=== PATIENT | female | born 1995 | race Caucasian/White ===

== ENCOUNTER → 2017-07-30 11:36 | Outpatient (CLI) | payer BC, SELFPAY ==
[2017-07-30 14:17] LABS: Estradiol 34.2 pg/mL; Follicle Stimulating Hormone 4.9 mIU/mL; Free T3 2.8 pg/mL (2.18-3.98); Glucose 84 mg/dL (74-106); T4 Free Direct 0.96 ng/dL (0.76-1.46); Thyroid Stim Hormone (TSH) 0.85 uIU/mL (0.358-3.74)
[2017-07-31 07:12] LABS: DHEA Sulfate 480.5 ug/dL (110.0-433.2)
[2017-07-31 09:14] LABS: Insulin 7.7 mU/L (2.6-37.6); Vitamin D,25 Hydroxy 18.2 ng/mL (19.95-100.01)
== END ==
PROVIDERS: Visit Provider Obstetrics & Gynecology
DX: N92.0 Excessive and frequent menstruation with regular cycle (principal)
CPT/HCPCS: 36415; 82306; 82627; 82670; 82947; 83001; 83498; 83525; 84146; 84403; 84439; 84443; 84481; 82626

== ENCOUNTER → 2017-09-05 07:35 | Outpatient (CLI) | payer BC, SELFPAY ==
[2017-09-05 09:01] LABS: Estradiol 32.6 pg/mL
== END ==
PROVIDERS: Family Provider Family Medicine; PCP Family Medicine; Visit Provider Obstetrics & Gynecology
DX: N94.4 Primary dysmenorrhea (principal); N92.0 Excessive and frequent menstruation with regular cycle; N92.6 Irregular menstruation, unspecified
CPT/HCPCS: 36415; 82306; 82533; 82627; 82670; 84270; 84403; 82626

== ENCOUNTER → 2017-10-04 08:03 | Outpatient (CLI) | payer BC, SELFPAY ==
[2017-10-08 12:08] LABS: DHEA Sulfate 508.5 ug/dL (110.0-433.2); Testosterone, % Free 2.67 % (0.50-2.80); Testosterone, Free 1.17 ng/dL (0.10-0.85)
[2017-10-08 16:24] LABS: Testosterone, Total 44 ng/dL (.)
== END ==
PROVIDERS: Visit Provider Obstetrics & Gynecology
DX: N92.0 Excessive and frequent menstruation with regular cycle (principal)
CPT/HCPCS: 36415; 82533; 82627; 84270; 84402; 84403; 82626

== ENCOUNTER → 2017-10-06 08:00 | Outpatient (CLI) | payer BC, SELFPAY ==
[2017-10-11 14:08] LABS: Testosterone, % Free 2.23 % (0.50-2.80); Testosterone, Free 0.36 ng/dL (0.10-0.85)
[2017-10-11 14:22] LABS: Sex Hormone-binding Globulin 42.5 nmol/L (24.6-122.0); Testosterone, Total 16 ng/dL (.)
== END ==
PROVIDERS: Family Provider Family Medicine; PCP Family Medicine; Visit Provider Obstetrics & Gynecology
DX: N92.0 Excessive and frequent menstruation with regular cycle (principal); E28.1 Androgen excess
CPT/HCPCS: 36415; 82533; 82627; 84270; 84402; 84403; 82626

== ENCOUNTER → 2017-11-06 12:19 | Outpatient (CLI) | payer BC, SELFPAY ==
--- NOTE | 2017-11-06 12:22 | US_ITS ---
STUDY: ULTRASOUND OF THE FEMALE PELVIS - COMPLETE REASON FOR EXAM: Female, 21 years old. Dysmenorrhea. LMP: November 03, 2017 TECHNIQUE: Transabdominal and Transvaginal TECHNICAL QUALITY: Adequate. COMPARISON: None. FINDINGS: The uterus is retroverted and is in a midline position. The uterus measures 7.1 cm x 5.5 cm x 3.1 cm. Normal uterine cervix. The endometrium measures 5.0 mm in thickness, and is hyperechoic. There is no demonstrated endometrial mass. There is no demonstrated myometrial mass. I.U.D. - The patient does not have an I.U.D. The right ovary is visualized. The right ovary measures 3.2 cm x 3.7 cm x 2.8 cm. There is no right ovarian cyst or ovarian mass. There is no visualized right adnexal mass or complex lesion. There is normal arterial and normal venous vascularity. The left ovary is visualized. The left ovary measures 4.0 cm x 3.0 cm x 1.6 cm. There is no left ovarian cyst or ovarian mass. There is no visualized left adnexal mass or complex lesion. There is normal arterial and normal venous vascularity. There is minimal fluid in the cul-de-sac. The pre void volume of the bladder was 423.5 ml. Polycystic ovary disease: No. US/Pelvic (Non ) IMPRESSION: Minimal amount of free fluid in the pelvis. Electronically Signed: Mohan Silveira MD at 13:42 EDT Tel [phone], Service support ,
--- NOTE | 2017-11-06 12:52 | US_ITS ---
STUDY: ULTRASOUND OF THE FEMALE PELVIS - COMPLETE REASON FOR EXAM: Female, 21 years old. Dysmenorrhea. LMP: November 03, 2017 TECHNIQUE: Transabdominal and Transvaginal TECHNICAL QUALITY: Adequate. COMPARISON: None. FINDINGS: The uterus is retroverted and is in a midline position. The uterus measures 7.1 cm x 5.5 cm x 3.1 cm. Normal uterine cervix. The endometrium measures 5.0 mm in thickness, and is hyperechoic. There is no demonstrated endometrial mass. There is no demonstrated myometrial mass. I.U.D. - The patient does not have an I.U.D. The right ovary is visualized. The right ovary measures 3.2 cm x 3.7 cm x 2.8 cm. There is no right ovarian cyst or ovarian mass. There is no visualized right adnexal mass or complex lesion. There is normal arterial and normal venous vascularity. The left ovary is visualized. The left ovary measures 4.0 cm x 3.0 cm x 1.6 cm. There is no left ovarian cyst or ovarian mass. There is no visualized left adnexal mass or complex lesion. There is normal arterial and normal venous vascularity. There is minimal fluid in the cul-de-sac. The pre void volume of the bladder was 423.5 ml. Polycystic ovary disease: No. US/Transvaginal Non- IMPRESSION: Minimal amount of free fluid in the pelvis. Electronically Signed: Mohan Silveira MD at 13:42 EDT Tel [phone], Service support ,
== END ==
PROVIDERS: Family Provider Family Medicine; PCP Family Medicine; Visit Provider Obstetrics & Gynecology
DX: N94.6 Dysmenorrhea, unspecified (principal)
CPT/HCPCS: 76830; 76856; 93976

== ENCOUNTER 2018-05-07 13:16 | Day surgery (SDC) | payer BC, SELFPAY ==
[2018-05-01 14:37] LABS: Hematocrit 42.9 % (37-47); Mean Corp Hgb Conc 32.6 g/gl (32-36); Mean Corpuscular Hgb 28.6 pg (27.0-32.0); Mean Corpuscular Volume 87.7 fL (81-99); Mean Platelet Vol. 9.1 fl (6.2-12.0); Platelet Count 285 K/mm3 (150-450); RBC Distribution Width CV 12.9 % (11.6-14.6); RBC Distribution Width SD 40.6 fl (35.1-43.9); Red Blood Count 4.89 M/mm3 (4.2-5.4); White Blood Count 10.8 K/mm3 (4.4-11.0)
[2018-05-01 14:38] LABS: Scan Indicated on CBC? Y/N NO
[2018-05-01 14:41] LABS: Prothrombin Time (Protime)PT. 13.3 SECONDS (11.7-14.9)
[2018-05-01 14:42] LABS: Partial Thromboplast Time 27.1 Seconds (24.1-36.2)
--- NOTE | 2018-05-07 | MISC_PTH ---
PATIENT: EUGENE CADET [place] [facility] [place] U[place][id number] AGE/SX: 22/F ROOM: RE05/07/[address]: Dr. Suzanne Livingston MD : 1995 BED: DIS: 05/07/2018 SPEC #: [id number] RECD: 05/09/18 09:05 STATUS: MO ADIEL #: [id number] CHRISTY: 05/07/18 00:[address]: Suzanne Benítez DEPT: SURGICAL PATHOLOGY RECD BY: Ap Dalton ENTERED: 05/09/18 13:02 SP TYPE: [facility] DR: Dr. Hailey Gimenez MD Tissues: A - Peritoneum, NOS B - Sacral region Procedures: Surgery Specimen Level IV HEADER OPERATION: Diagnostic laparoscopy, surgical treatment of endometriosis PRE-OP DIAGNOSIS: Dysmenorrhea TISSUE SUBMITTED: A - Right posterior cul-de-sac, B - Left uterosacral MICROSCOPIC DIAGNOSIS A. Right posterior cul-de-sac, biopsy: Fragments of fibroadipose and fibroconnective tissue with focal changes consistent with endometriosis. B. Left uterosacral, biopsy: Mesothelial-lined fibroadipose and fibroconnective tissue with chronic inflammation and focal changes suggestive of endometriosis. TREMAYNE:marli 05/12/18 MICROSCOPIC DESCRIPTION Slides are reviewed. GROSS DESCRIPTION A - Received in fixative is one container labeled with the patient's name and designated right posterior cul-de-sac. The specimen consists of two pieces of pink, congested soft tissue that in aggregate measure 1.5 x 1 x 0.2 cm. The specimen is totally submitted in one cassette. B - Received in fixative is one container labeled with the patient's name and designated left uterosacral. The specimen consists of a piece of casper soft tissue measuring 1.2 x 0.2 x 0.2 cm. The specimen is totally submitted in one cassette. / TREMAYNE:marli 05/09/18 TC:5 CPT: 24748 x2
[2018-05-07 13:40] VITALS: BP 130/67; PULSE 89; RESP 16; TEMP 37.5; O2SAT 100; BMI 23.1
--- NOTE | 2018-05-07 13:45 | PCM.HPOB.BLA ---
History and Physical Date of Admission: 05/01/18 Surgical History and Physical Date: 05/01/2018 Name: EUGENE VALDEZ Age: 22 Date of : 1995 Eugene Valdez, a 22 year old female 0 0 0 0 0, presents for Diagnostic laparoscopy on May 07, 2018 at 11:45. -- Eugene is here for pre-op appt. She is on OCP and continues with mild pain. Heavy bleeding is improved. PAT packet given. Consents signed and reviewed. LMT as above. Eugene continues OCP for painful and heavy menses. Heavy bleeding has resolved, however continues to have dysmenorrhea. Has a few questions about surgery. shm MEDICATIONS HISTORY: Current medications prescribed by our practice are: 1. dexamethasone 0.5 mg tablet, One pill by mouth once a day at 2. Effexor XR 75 mg capsule,extended release, One pill by mouth once a day 3. 1.5/30 (28) 1.5 mg-30 mcg (21)/75 mg (7) tablet, One pill by mouth once a day 4. spironolactone 50 mg tablet, One pill by mouth once a day ALLERGIES: No Known Drug Allergies Infections - none Illnesses - anemic Accidents - None Hospitalizations - None Review of Systems: GENERAL - Denies fever, or chills SKIN - Denies skin changes EYES - Denies visual changes EARS - Denies difficulty hearing NOSE - Denies nasal congestion or bleeding MOUTH - Denies sore throat or difficulty swallowing NECK - Denies pain or swelling RESPIRATORY - Denies shortness of breath or wheezing CARDIOVASCULAR - Denies palpitations or chest pain GASTROINTESTINAL - Denies nausea, vomiting, diarrhea, constipation GENITOURINARY - heavy bleeding improved on OCP, pain improved but still present MUSCULOSKELETAL - Denies joint or muscle pain NEUROLOGICAL - Denies localized numbness or weakness PSYCHIATRIC - Denies depression or anxiety ENDOCRINE - Denies heat or cold intolerance, weight loss or gain HEMATO-IMMUNOLOGIC - Denies excesive bleeding with cuts SOCIAL HISTORY: Alcohol Use - denies drinking Smoking - denies smoking Diet - balanced Diet Lifestyle - moderate stress lifestyle Exercise - active Seat Belt Use - always Employer - [employer] Job Description - [employer] Illicit Drug Use - denies use of street drugs Sexual Activity - single sexual partner Residence - lives in college dorm Hours Worked - prn Control - FAMILY HISTORY: MENSTRUAL HISTORY: LMP Known?- Approximate-Month KnownAmount/Duration - extended, Regularity - regular, Frequency - monthly days, LMP - 04/16/18, Age Onset Menarche - 13 PAST PREGNANCIES: Total Pregnancies - 0; Full Term Pregnancies - 0; Premature - 0; Abortions, Induced - 0; Abortions, Spontaneous - 0; Ectopics - 0; Multiple Births - 0; Living Children - 0 SURGICAL HISTORY: 1. 01/17/2016 [place] ; - PHYSICAL EXAM BP- 120/72 Sitting, Right arm, regular cuff Temp- 98 Taken Orally Weight- 139.75660 lbs Height- 63.75 inch BMI:24.10 CONSTITUTIONAL - NAD, well nourished, and well developed SKIN - No rash, lesions, or ulcers HEENT - normocephalic, atraumatic, sclerae anicteric LUNGS - Clear to auscultation bilaterally, normal respiratory rate and rhythm CARDIAC - Regular rate and rhythm, no murmurs, rubs or gallops ABDOMEN - Without hepatosplenomegaly, distention, masses, rebound, or guarding; normal bowel sounds; no hernias NEUROLOGICAL - normal gait, normal balance, normal motor PSYCHIATRIC - A and O to time, place, person, mood and affect Laboratory Tests 05/01/18 05/01/18 05/01/18 Range/Units 14:13 14:13 14:13 WBC 10.8 (4.4-11.0) K/mm3 RBC 4.89 (4.2-5.4) M/mm3 Hgb 14.0 (12.0-15.0) g/dl Hct 42.9 (37-47) % MCV 87.7 (81-99) fL MCH 28.6 (27.0-32.0) pg MCHC 32.6 (32-36) g/gl RDW 12.9 (11.6-14.6) % RDW Differential 40.6 (35.1-43.9) fl Plt Count 285 (150-450) K/mm3 MPV 9.1 (6.2-12.0) fl PT 13.3 (11.7-14.9) SECONDS INR 1.0 APTT 27.1 (24.1-36.2) Seconds Blood Type O POSITIVE Antibody Screen NEGATIVE ULTRASOUND 11/06/17 FINDINGS: The uterus is retroverted and is in a midline position. The uterus measures 7.1 cm x 5.5 cm x 3.1 cm. Normal uterine cervix. The endometrium measures 5.0 mm in thickness, and is hyperechoic. There is no demonstrated endometrial mass. There is no demonstrated myometrial mass. I.U.D. - The patient does not have an I.U.D. The right ovary is visualized. The right ovary measures 3.2 cm x 3.7 cm x 2.8 cm. There is no right ovarian cyst or ovarian mass. There is no visualized right adnexal mass or complex lesion. There is normal arterial and normal venous vascularity. The left ovary is visualized. The left ovary measures 4.0 cm x 3.0 cm x 1.6 cm. There is no left ovarian cyst or ovarian mass. There is no visualized left adnexal mass or complex lesion. There is normal arterial and normal venous vascularity. There is minimal fluid in the cul-de-sac. The pre void volume of the bladder was 423.5 ml. ASSESSMENT/PLAN: 1. Dysmenorrhea, Unspecified Plan for diagnostic laparoscopy to r/o endometriosis - h/o dysmenorrhea refractory to OCP. Reviewed how laparoscopy performed, surgical risks - r/b/i/a reviewed. Consents signed. CBC, coaisabel snl
[2018-05-07 13:46] LABS: Internal QC Validated? YES +Cl - CLEAR BKGD; Pregnancy, Urine Negative Negative
[2018-05-07] MEDS: Bupivacaine Mpf 0.5% 30 ML VIAL (14:35)
--- NOTE | 2018-05-07 16:39 | PCM.OPRPT ---
Problem List (1) Endometriosis determined by laparoscopy Status: Acute (2) Secondary dysmenorrhea Status: Acute Report of Operation Date of Procedure: 05/07/18 Pre-Operative Diagnosis: Dysmenorrhea Post-Operative Diagnosis: Dysmenorrhea, endometriosis Surgery/Procedure Performed:: Diagnostic laparoscopy. Peritoneal biopsies/surgical treatment of endometriosis. Adhesiolysis Description of Surgical Findings:: Dilitation of pelvic vasculature Left uterosacral and right posterior culdesac lesions concerning for endometriosis Right upper abdominal large colonic adhesions to anterior abdominal side wall administrative support clerk: Krystal Stein Type of Anesthesia:: General, Local Anesthesiologist: David Brenner Specimen's removed: 1. right posterior culdesac peritoneum biopsy. 2. left uterosacral biopsy Drains: klein - 150 ml Estimated Blood Loss (mL): 50 Fluids Replaced: 1400 ml Description of Procedure: Patient taken to the operating room and sign in performed. She was placed in dorsal supine position, induced under general anesthesia and intubated. She was repositioned into dorsal lithotomy and arms were tucked at her sides. An examination under anesthesia was performed. The abdomen and perineum were prepped and draped in sterile fashion. The patient was placed into high lithotomy and a weighted speculum placed into the vagina. The cervix was grasped at the anterior cervical lip using a single tooth tenaculum and a Chalino uterine manipulator was placed and secured. The patient was placed into low lithotomy and attention turned to the abdomen. An infraumbilical incision was made and Veress needle placed with intraabdominal entry pressure 2mmHg. The abdomen was insufflated to 15mmHg. The Veress needle was removed and a 5mm port placed under laparoscopic guidance. A suprapubic incision was made and a 5mm port was also placed here. The patient was placed into Trendelenberg and inspection of the abdomen and pelvis performed. There was an area of endometriosis in the right posterior culdesac, the left uterosacral ligament was notably scarred and there were adhesions of the right large colon to the anterior abdominal side wall without clear endometriosis there. A third and fourth incisions were placed in the left and right lower quadrants under transillumination, respectively and ports were placed here. The right posterior culdesac peritoneal lesion was grasped and using sharp and blunt dissection the affected peritoneum was removed. There was an arteriole bleed from the perirectal space controlled with compression and then application of monopolar energy. Subsequently, I excised the peritoneum over the left uterosacral ligament scarred area. These peritoneal biopsies were sent to pathology. Attention was turn to the right large colonic adhesion and using sharp and blunt dissection adhesiolysis performed with separation of right colon from the anterior abdominal wall. The pelvic surgical sites were irrigated and there was excellent hemostasis at all surgical sites. The procedure was complete. The patient was leveled out and the trocars removed and the abdomen desufflated. The abdominal incisions were closed with 3-0 Vicryl Rapide and Opsite dressing was applied. Sensorcaine was administered for local analgesia. Attention was turned to the perineum and the Chalino cannula and tenaculum were removed. There was good hemostasis at the tenaculum sites. The patient was placed into dorsal supine position, awakened, extubated and transferred to the recovery room without complications. Sponge counts were correct x 2. - Complications None - Admit VTE Documentation VTE Present on Admission: No VTE Mechan Device Prophylaxis: SCD's VTE Pharm Prophylaxis ordered?: No
--- NOTE | 2018-05-07 16:47 | DCINST_ITS ---
- Discharge Diagnoses Current Active Problems: Current Active and Chronic Problems Endometriosis determined by laparoscopy (Acute) Secondary dysmenorrhea (Acute) Reason(s) for Visit for Discharge Instructions: Laparoscopy You will use the following diet at home:: No restrictions Your food should be the consistency of: Regular Discharge Activity: Return to Normal Activity, May not drive while taking narcotic pain medications., May Shower, - - No tub bath for 1-2 weeks May resume sexual activity in: - - 2-4 weeks Lifting Restrictions: 10 lb Call your doctor if your incision/area has: Continuous Slow Oozing, Sudden Increased Bleeding, Increased Pain/ Swelling, Increased Redness Call your doctor if you observe: Fever of 101 or Higher, Inability to urinate, Using more than one pad per hour, Shortness of breath, Chest pain, Calf discomfort Suture Line Care: Avoid Pulling/Pushing Remove Dressing in (days):: 1 - 24 hours Cleanse incision/area with: Soap & Water Allergies/Adverse Reactions: Allergies No Known Allergies Allergy (Verified 04/30/18 14:28) Medications to take at Discharge Dexamethasone 0.5 mg PO QHS 04/30/18 Norethindrone AC-Eth Estradiol [Microgestin 21 1.5-30 Tab] 1 each PO DAILY 04/30/18 Spironolactone [Aldactone] 50 mg PO QHS 04/30/18 Venlafaxine XR [Effexor Xr] 150 mg PO QHS 04/30/18 Docusate Sodium [Colace] 100 mg PO BID PRN PRN #60 capsule 05/07/18 Ibuprofen 600 mg PO TID PRN #30 tablet 05/07/18 Oxycodone [Oxyir] 5 mg PO Q6H PRN PRN 7 Days #18 tablet 05/07/18 The following prescriptions were given: Oxycodone [Oxyir] 5 mg PO Q6H PRN PRN 7 Days #18 tablet PRN Reason: Severe Pain (6-03/26) Docusate Sodium [Colace] 100 mg PO BID PRN PRN #60 capsule PRN Reason: Constipation Ibuprofen 600 mg PO TID PRN #30 tablet PRN Reason: Pain Primary Care Physician: Hailey Gimenez MD [Primary Care Provider] - Test Results: Test results from this visit will be discussed in further detail at your follow- up appointment, if applicable. Please Follow Up With: Suzanne Wagner MD When: 4 weeks
[2018-05-07 17:08] VITALS: BP 105/59; BP 130/67; PULSE 100; RESP 16; TEMP 36.6; O2SAT 98
[2018-05-07 17:15] VITALS: BP 106/68; BP 130/67; PULSE 98; RESP 16; O2SAT 100
[2018-05-07 17:30] VITALS: BP 111/68; BP 130/67; PULSE 98; RESP 16; O2SAT 98
[2018-05-07 17:35] VITALS: BP 130/67; BP 99/65; PULSE 95; RESP 16; TEMP 36.8; O2SAT 100
[2018-05-07] MEDS: HYDROcodone Bitartrate/Apap 5/325 Tablet PO (18:35)
[2018-05-07 19:25] VITALS: BP 103/62; BP 130/67; PULSE 108; RESP 16; TEMP 37; O2SAT 97
--- NOTE | 2018-05-07 19:44 | SUR.PHASEII ---
AFTER REPORTING FEELING WELL, PAIN TOLERABLE, NO NAUSEA, ASKED TO BE D/C HOME. IV REMOVED, D/C INSTRUCTIONS REVIEWED. PATIENT THEN REPORTS NAUSEATED AFTER GETTING DRESSED. RESTED FOR ANOTHER 40 MINUTES PRIOR TO D/C HOME. MOTHER AND FRIEND AT BEDSIDE AGREEABLE TO D/C HOME AT THIS TIME.
== END 2018-05-07 19:43 | disposition home or self-care (01) ==
LOC: SDC 13:17 → AC 13:18
PROVIDERS: Anesthesiology; Family Provider Family Medicine; PCP Family Medicine; Referring Provider Obstetrics & Gynecology; Visit Provider Obstetrics & Gynecology
PROC: (CPT 49320; principal; 2018-05-07 14:45)
DX: N80.9 Endometriosis, unspecified (principal); D64.9 Anemia, unspecified; F41.9 Anxiety disorder, unspecified; Z79.3 Long term (current) use of hormonal contraceptives; Z79.52 Long term (current) use of systemic steroids; Z79.899 Other long term (current) drug therapy
CPT/HCPCS: 00840; 49321; 36415; 81025; 85027; 85610; 85730; 86850; 86900; 88305; J7120; J2405

== ENCOUNTER → 2018-06-19 13:32 | Outpatient (CLI) | payer BC, SELFPAY ==
[2018-06-19 16:54] LABS: Estradiol 35.5 pg/mL
[2018-06-19 16:56] LABS: CORTISOL SERUM < 0.50 ug/dL (3.09-22.40)
[2018-06-21 08:10] LABS: DHEA Sulfate 20.4 ug/dL (110.0-431.7)
[2018-06-21 12:28] LABS: Sex Hormone-binding Globulin 61.6 nmol/L (24.6-122.0)
== END ==
PROVIDERS: Family Provider Family Medicine; PCP Family Medicine; Visit Provider Obstetrics & Gynecology
DX: E28.1 Androgen excess (principal)
CPT/HCPCS: 36415; 82533; 82627; 82670; 84270; 84403; 82626

== ENCOUNTER → 2018-07-29 08:57 | Outpatient (CLI) | payer BC, SELFPAY ==
[2018-07-29 12:20] LABS: Estradiol 41.5 pg/mL
[2018-07-29 12:32] LABS: Pregnancy, Serum, hCG Quali. NEGATIVE Negative (0-9 Nonpreg)
[2018-07-30 11:47] LABS: DHEA Sulfate 32.3 ug/dL (110.0-431.7)
== END ==
PROVIDERS: Visit Provider Obstetrics & Gynecology
DX: N94.4 Primary dysmenorrhea (principal); N80.3 Endometriosis of pelvic peritoneum; L70.9 Acne, unspecified
CPT/HCPCS: 36415; 82533; 82627; 82670; 84403; 84703; 82626

== ENCOUNTER → 2018-08-28 07:18 | Outpatient (CLI) | payer BC, SELFPAY ==
[2018-08-28 08:09] LABS: Estradiol 27.6 pg/mL
== END ==
PROVIDERS: Family Provider Family Medicine; PCP Family Medicine; Referring Provider Obstetrics & Gynecology; Visit Provider Obstetrics & Gynecology
DX: L70.9 Acne, unspecified (principal); N94.5 Secondary dysmenorrhea
CPT/HCPCS: 36415; 82533; 82627; 82670; 84403; 82626

== ENCOUNTER → 2018-10-23 08:06 | Outpatient (CLI) | payer BC, SELFPAY ==
[2018-10-23 09:31] LABS: Glucose 75GTT - 30 minutes 139 mg/dL (100-160)
[2018-10-23 09:31] LABS: Glucose 75GTT - Fasting 96 mg/dL (70-99)
[2018-10-23 09:38] LABS: Cholesterol 155 mg/dL (200); High Density Lipoprotein 51 mg/dL; Triglycerides 63 mg/dL; Very Low Density Lipoprotein 13 mg/dL (5-40)
[2018-10-23 09:52] LABS: Insulin 11.2 mU/L (2.6-37.6)
[2018-10-23 10:38] LABS: Glucose 75GTT - 60 minutes 93 mg/dL (100-160)
[2018-10-23 11:13] LABS: Glucose 75GTT - 120 minutes 99 mg/dL (70-140)
== END ==
PROVIDERS: Family Provider Family Medicine; PCP Family Medicine; Referring Provider Obstetrics & Gynecology Reproductive Endocrinology; Visit Provider Obstetrics & Gynecology Reproductive Endocrinology
DX: E28.2 Polycystic ovarian syndrome (principal); N91.3 Primary oligomenorrhea
CPT/HCPCS: 36415; 80061; 82533; 82951; 82952; 83525

== ENCOUNTER → 2019-01-13 08:22 | Outpatient (CLI) | payer BC, SELFPAY ==
[2019-01-13 15:01] LABS: Prolactin 7.7 ng/mL
== END ==
PROVIDERS: Family Provider Family Medicine; PCP Family Medicine; Referring Provider Obstetrics & Gynecology Reproductive Endocrinology; Visit Provider Obstetrics & Gynecology Reproductive Endocrinology
DX: E22.1 Hyperprolactinemia (principal); E27.8 Other specified disorders of adrenal gland
CPT/HCPCS: 36415; 82533; 84146

== ENCOUNTER → 2019-01-22 08:59 | Outpatient (CLI) | payer BC, SELFPAY ==
[2019-01-25 07:42] LABS: Cortisol, Free 24Ur 13 ug/24 hr (6-42); Cortisol, Urinary Free 8 ug/L (Undefined)
== END ==
PROVIDERS: Family Provider Family Medicine; PCP Family Medicine; Referring Provider Obstetrics & Gynecology Reproductive Endocrinology; Visit Provider Obstetrics & Gynecology Reproductive Endocrinology
DX: E22.1 Hyperprolactinemia (principal); E27.8 Other specified disorders of adrenal gland
CPT/HCPCS: 82530

== ENCOUNTER → 2019-04-10 11:29 | Outpatient (CLI) | payer BC, SELFPAY ==
[2019-04-10 15:56] LABS: Chlamydia Trachomatis by PCR Negative (Negative); Neisserai gonorrhoeae by PCR Negative (Negative); Probe Check PASS; Sample Adequacy Control PASS; Specimen Processing Control PASS
== END ==
PROVIDERS: Visit Provider Obstetrics & Gynecology
DX: Z11.3 Encounter for screening for infections with a predominantly sexual mode of transmission (principal)
CPT/HCPCS: 87491; 87591

== ENCOUNTER → 2019-05-29 11:32 | Outpatient (CLI) | payer BC, SELFPAY ==
--- NOTE | 2019-05-29 11:37 | RAD_ITS ---
STUDY: X-RAY - RIGHT KNEE REASON FOR EXAM: Female, 23 years old. Knee pain. TECHNIQUE: 4 view(s) of the knee. COMPARISON: None. FINDINGS: Normal visualized distal femur. Normal visualized proximal tibia and fibula. Normal proximal tibiofibular articulation. There is no demonstrated fracture. Normal medial femorotibial compartment. Normal lateral femorotibial compartment. Normal patellofemoral articulation. There is no demonstrated joint effusion. The soft tissue structures are unremarkable. RAD/Knee 4 or More Views IMPRESSION: Normal x-ray examination of the knee. Electronically Signed: Jillian Drew MD at 2:58 EST , Service support ,
== END ==
PROVIDERS: Family Provider Family Medicine; PCP Family Medicine; Referring Provider Family Medicine; Visit Provider Family Medicine
DX: S83.91XA Sprain of unspecified site of right knee, initial encounter (principal)
CPT/HCPCS: 73564

== ENCOUNTER 2019-06-15 06:51 | Outpatient (RCR) | payer BC, SELFPAY ==
[2019-06-11 08:25] VITALS: BMI 23.1
--- NOTE | 2019-06-15 08:18 | HP.PTEVAL_ITS ---
Patient's Visit Information EUGENE ECHOLS is a 23 year old F referred to Physical Therapy by ANITRA Earl with a diagnosis of Patellar Tendonitis, PF Syndrome. Date of Evaluation: 06/15/19 Physical Therapist: Shayy Sweeney DPT - Visit Plan Frequency: 3x /Week Duration: 4 Weeks Plan: Focus on LE and core s/s- possible gait analysis. 06/15/19 HEP: Prone Quad Stretch, Quad set, Seated SLR, Clams - Subjective Findings: Right knee about 8 weeks ago sharp pain on right knee cap and on the outside- grinding and locking. Could not run and go down stairs. Insidious onset and is gradually getting better. Normally runs 4-5x- a few miles each day- indoor track at school. Running in good shoes but probably need new ones. Dug her orthotics out from high school. Is back to running kind of- trying to get back in- does not hurt just feeels that its going to hurt. Is wearing a knee brace which helps to hold the patella from grinding. Worst: 3/10 Agg: turn funny or sitting with her legs crossed. Best: 0/10 most of the time. When it first happened it was locking and hard to walk. Describes the pain as sharp and grinding but now its more just sore and achy. Radiated into the lei when it first happened but now not. Sleep: not disturbed. Saw MD who took x-rays but no MRI. Goes to [employer]. 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 PMHx: endometriosis Meds: venlofaxine. - Objective Posture: FH, RS- can correct but does not maintain. Gait: no deviation noted. Observation: signficant pes planus and mild edema in right knee around patella. HR/TR: able without incidence. SLS: 15 sec with increased hip drop. Squat: poor mechanics- weight shift, heels pop off ground and ROM is severely limited. Palpation: tender along lateral joint line and distal patella. ROM: 0-145 degrees with discomfort at end range flexion. Reflex/Sensation: WNL. Strength: Core: fair minus, Hip: flexion/abd: 4-/5, Extn: 4/5, Add: 4+/5, IR/ER: 4/5 Knee: Flexion: 4/5, Extn: 4+/5, Eccentric: poor control, ankle: 5/5. Special Test: Rhiannon: negative, Patella Tracking: lateral. Flex: HS: moderate, Gastroc: moderate, quad: moderate - Goals Goal 1:: Patient will be I with HEP and progression Goal Time Frame: 4-6 Weeks Goal 2:: Patient will demo 5/5 in LE where deficit Goal Time Frame: 4-6 Weeks Goal 3:: Patient will squat with good mechanics Goal Time Frame: 4-6 Weeks Goal 4:: Patient will SLS without hip drop for 30 sec Goal Time Frame: 4-6 Weeks Goal 5:: Patient will report 0/10 pain for 1 week Goal 6:: Patient will maintain proper posture t/o tx session to demo increased core s/s Goal Time Frame: 4-6 Weeks - Rehabilitation Potential Physical Therapy Diagnosis: Patient presents with hypomobility- she has decreased strength, flex, muscular endurance, pes planus leading to muscle imbalance and increased pain with ADL's and recreational actviities. Rehabilitation Potential: Good - Anticipated Interventions Patient/Client Instruction: Educate patient on: Benefits of Fitness Program Therapeutic Exercise to Include: Strength training, Endurance training, Balance training, Coordination, Agility training, Body mechanics, Postural training, Flexibilty training, Gait and locomotor training, Passive ROM, Active ROM, Dynamic Lumbar Stabilization For the Purpose of:: To improve muscle performance and motor function TENS: Yes Cryotherapy (ice pack, ice massage): Yes Thermo therapy (hot pack): Yes Ultrasound (thermal/non thermal): No For the Purpose of:: To decrease pain Thank you for the opportunity to evaluate your patient. For Medicare and Medicare HMO plans, please review the plan of care and approve it. It will need to be FAXED BACK to us at [phone] for Medicare purposes. For Medicare only, by signing this I certify the plan of care. Please let me know if there are questions or concerns regarding this plan of care. Physician Signature: Date:
--- NOTE | 2019-10-27 11:27 | HP.PT.NRP ---
EUGENE ECHOLS was seen in my office for initial evaluation on 06/15/19. The following Plan of Care was established for this patient: Initial Frequency: 3x /Week Initial Duration: 4 Weeks Patient/Client Instruction: Educate patient on: Benefits of Fitness Program Therapeutic Exercise to Include: Strength training, Endurance training, Balance training, Coordination, Agility training, Body mechanics, Postural training, Flexibilty training, Gait and locomotor training, Passive ROM, Active ROM, Dynamic Lumbar Stabilization For the Purpose of:: To improve muscle performance and motor function TENS: Yes Cryotherapy (ice pack, ice massage): Yes Thermo therapy (hot pack): Yes Ultrasound (thermal/non thermal): No For the Purpose of:: To decrease pain This patient was last seen in our office . Pertinent comments regarding their Physical therapy will appear below: Patient has not attended physical therapy in over 8 weeks- appropriate for d/c and return to MD as appropriate. At this point I will be discontinuing this patient from physical therapy. I would be happy to see this patient again in the future if found appropriate by the physician. Thank you! ESTELLA GrimesT
== END 2019-06-15 19:00 | disposition home or self-care (01) ==
LOC: PT 06:51
PROVIDERS: Family Provider Family Medicine; PCP Family Medicine; Referring Provider Physician Assistant; Visit Provider Physician Assistant
DX: M76.51 Patellar tendinitis, right knee (principal); M22.2X1 Patellofemoral disorders, right knee; M22.2X2 Patellofemoral disorders, left knee
CPT/HCPCS: 97110; 97161

== ENCOUNTER → 2019-12-22 10:59 | Outpatient (CLI) | payer BC, SELFPAY ==
[2019-06-11 08:25] VITALS: BMI 23.1
[2019-12-22 13:08] LABS: Rubella IgG 313.6 IU/mL
[2019-12-22 18:47] LABS: Probe Check PASS; Sample Adequacy Control PASS; Specimen Processing Control PASS; Trichomonas Vag DNA by PCR Negative (Negative)
[2019-12-22 18:58] LABS: Chlamydia Trachomatis by PCR Negative (Negative); Neisserai gonorrhoeae by PCR Negative (Negative); Probe Check PASS; Sample Adequacy Control PASS; Specimen Processing Control PASS
[2019-12-23 10:21] LABS: HIV - WCH Non-Reactive (Nonreactive); Hepatitis B Surface Antibody Non-Reactive; Hepatitis B Surface Antigen Non-Reactive (Nonreactive); Hepatitis C Antibody Non-Reactive (Nonreactive)
[2019-12-23 16:44] LABS: Mumps Antibody,IgG 96.9 AU/mL (Immune >10.9); Rubeola IgG Ab > 300.0 AU/mL (Immune >16.4)
[2019-12-26 08:48] LABS: HPV Reflexed? NOT INDICATED
== END ==
LOC: MFPLAB 11:00 → WOBLAB 16:23
PROVIDERS: PCP Family Medicine; Referring Provider Family Medicine; Visit Provider Obstetrics & Gynecology
DX: Z00.00 Encounter for general adult medical examination without abnormal findings (principal); Z12.4 Encounter for screening for malignant neoplasm of cervix; Z11.3 Encounter for screening for infections with a predominantly sexual mode of transmission; N93.9 Abnormal uterine and vaginal bleeding, unspecified
CPT/HCPCS: 36415; 86703; 86706; 86735; 86762; 86765; 86803; 87340; 87491; 87591; 87661; 88175; G0145

== ENCOUNTER → 2020-01-07 09:22 | Outpatient (CLI) | payer BC, SELFPAY ==
[2019-06-11 08:25] VITALS: BMI 23.1
[2020-01-15 17:16] LABS: V-Zoster IgG (Immunity) 457 index (Immune >165)
== END ==
PROVIDERS: PCP Family Medicine; Referring Provider Family Medicine; Visit Provider Family Medicine
DX: Z00.00 Encounter for general adult medical examination without abnormal findings (principal)
CPT/HCPCS: 86787

== ENCOUNTER → 2020-01-27 09:44 | Outpatient (CLI) | payer BC, SELFPAY ==
[2019-06-11 08:25] VITALS: BMI 23.1
--- NOTE | 2020-01-27 13:42 | STRESSREP ---
Stress Test Report Treadmill EKG report: Resting EKG: Normal sinus rhythm, normal axis, normal intervals, no evidence of previous myocardial infarction. Treadmill EKG: Patient exercised according to Richard protocol for 13 minutes and 13 seconds achieving a maximum workload of 15.70 METS. Resting heart rate was initially 93 beats a minute and cris to maximum 210 bpm which represents 106% of the maximal age-predicted heart rate. Resting blood pressure was 122/66, and pulse was 166/74. Test terminated due to dyspnea. During exercise the patient's heart rate increased as expected. Patient had no dynamic EKG changes to suggest ischemia. No arrhythmias noted. Conclusions: Normal, adequate, treadmill EKG. Negative for ischemia by EKG criteria. No anginal symptoms noted. No arrhythmias noted. Appropriate blood pressure response to exercise. Average exercise capacity for age. Patient tolerated procedure well. No complications.
== END ==
PROVIDERS: PCP Family Medicine; Referring Provider Family Medicine; Visit Provider Family Medicine
DX: R00.0 Tachycardia, unspecified (principal)
CPT/HCPCS: 93017

== ENCOUNTER → 2020-05-13 10:08 | Outpatient (CLI) | payer BC, SELFPAY ==
[2019-06-11 08:25] VITALS: BMI 23.1
--- NOTE | 2020-05-13 12:18 | RAD_ITS ---
STUDY: X-RAY - RIGHT KNEE REASON FOR EXAM: Female, 24 years old. KNEE DERANGEMENT TECHNIQUE: 4 view(s) of the knee. COMPARISON: 05/29/2019. FINDINGS: No acute fracture, dislocation or osseous destruction. No significant joint space narrowing. No significant productive changes. No significant soft tissue swelling. Small joint effusion. RAD/Knee 4 or More Views IMPRESSION: Right knee intact without significant degenerative features Small joint effusion Electronically Signed: David Cadet DO at 13:19 EST Tel , Service support ,
== END ==
PROVIDERS: PCP Family Medicine; Referring Provider Family Medicine; Visit Provider Family Medicine
DX: M23.91 Unspecified internal derangement of right knee (principal)
CPT/HCPCS: 73564

== ENCOUNTER → 2021-03-03 | Outpatient (CLI) | payer BC, SELFPAY ==
[2021-03-07 03:07] LABS: Chlamydia By Nucleic Acid AMP Negative (Negative)
[2021-03-07 14:02] LABS: Gonococcus By Nucleic Acid AMP Negative (Negative)
== END | disposition home or self-care (01) ==
LOC: LABSPEC 11:02
PROVIDERS: PCP Family Medicine; Visit Provider Obstetrics & Gynecology
DX: Z11.3 Encounter for screening for infections with a predominantly sexual mode of transmission (principal)
CPT/HCPCS: 87491; 87591

== ENCOUNTER → 2023-01-21 | Outpatient (CLI) | payer BC, SELFPAY ==
[2023-01-21 17:57] LABS: Absolute Lymphocyte Count 2.31 X10^3/uL (0.83-4.51); Absolute Neutrophil Count 5.9 X10^3/uL (2.0-7.7); Basophil# 0.04 X10^3/uL; Basophil% 0.4 % (0-1); Eosinophils% 1.1 % (0-5); Hematocrit 43.5 % (37-47); Lymphocyte # 2.31 X10^3/ul (0.83-4.51); Mean Corp Hgb Conc 32.2 g/dL (32-36); Mean Corpuscular Hgb 28.8 pg (27.0-32.0); Mean Corpuscular Volume 89.5 fL (81-99); Mean Platelet Vol. 9.5 fl (6.2-12.0); Monocyte# 0.54 X10^3/uL; Monocyte% 6.1 % (0-10); NRBC Flagged by Analyzer 0 % (0-5); Neutrophil # 5.88 X10^3/uL (2.7-7.7); Neutrophil % 66.1 % (47-70); Platelet Count 321 K/mm3 (150-450); RBC Distribution Width CV 12.3 % (11.6-14.6); RBC Distribution Width SD 40.5 fl (35.1-43.9); Red Blood Count 4.86 M/mm3 (4.2-5.4); White Blood Count 8.9 K/mm3 (4.4-11.0)
[2023-01-21 18:18] LABS: Vitamin B12 666 pg/mL (211-911)
[2023-01-21 18:24] LABS: ALB/GLOB Ratio 1.3 RATIO (0.9-2.4); AST(SGOT) 18 U/L (15-37); Alanine Aminotransfer ALT/SGPT 24 U/L (13-56); Albumin, Serum 3.9 g/dL (3.2-5.0); Alkaline Phosphatase 73 U/L (45-117); Anion Gap 4 (5-15); BUN 8 mg/dL (7-18); Calcium,Total 8.8 mg/dL (8.5-10.1); Chloride 105 mmol/L (98-107); Creatinine, Serum 0.67 mg/dL (0.55-1.02); EST Glomerular Filtration Rate 115 mL/min (>60); Est Glom Filt Rate - Afr Amer 139 mL/min (>60); Globulin 3.1 g/dL (2.2-4.2); Glucose 81 mg/dL (74-106); Potassium 4.2 mmol/L (3.5-5.1); Sodium Level 140 mmol/L (136-145); Thyroid Stim Hormone (TSH) 1.13 uIU/mL (0.358-3.74)
== END | disposition home or self-care (01) ==
PROVIDERS: PCP Family Medicine; Visit Provider Family Medicine
DX: R53.83 Other fatigue (principal)
CPT/HCPCS: 36415; 80053; 82607; 84443; 85025

== ENCOUNTER 2024-11-29 17:06 | Emergency (ER) | payer OTHER, SELFPAY ==
[2024-11-29] VITALS (7 sets, daily range): BP systolic 105–141; BP diastolic 58–83; PULSE 61–110; RESP 15–21; TEMP 36.6–37.9; O2SAT 95–99; BMI 25.1
--- NOTE | 2024-11-29 17:29 | EX.ED.DYSGE1 ---
HPI History of Present Illness Chief Complaint: Dizziness Informant: patient Onset/Context/Timing Onset: Today Context: Sudden Onset Timing: Continuous Quality: Aching Location: Generalized Worsened by: Nothing Relieved by: Nothing Narrative Narrative: Patient presents with near syncopal episodes that occurred today. Patient states she was at the store when she felt like she was getting lightheaded and was going to pass out. Patient states she was able to go to her car and lay down. Patient states that her vision kept getting black at times. Patient admits to some generalized aching. Patient admits to low-grade fever. Patient admits to some nausea but denies any vomiting. Patient states she had a vaginal delivery 3 weeks ago. Patient denies any chest pain or shortness of breath. [facility] Medical History (Updated 11/29/24 @ 21:[address] David Pleitez DO) Cervical endometriosis Anxiety Home Medications ?Medication ?Instructions ?Recorded ?Last Taken ?Type norethindrone acetate 1.5 1 ea PO DAILY 04/30/18 Unknown History mg-ethinyl estradiol 30 mcg tablet venlafaxine 150 mg 150 mg PO QHS 04/30/18 Unknown History capsule,extended release 24 hr docusate sodium 100 mg capsule 100 mg PO BID PRN PRN Constipation 05/07/18 Unknown Rx #60 caps ibuprofen 600 mg tablet 600 mg PO TID PRN Pain #30 tabs 05/07/18 Unknown Rx meloxicam 15 mg tablet 15 mg PO DAILY #21 tabs 06/11/19 Unknown Rx cephalexin 500 mg capsule 500 mg PO Q6 #12 CAPSULES 11/29/24 Unknown Rx Allergy/AdvReac Type Severity Reaction Status Date / Time No Known Allergies Allergy Verified 11/29/24 17:06 Surgical History (Updated 11/29/24 @ 17:[address] David Pleitez DO) Hx of laparoscopy Social History Smoking Status: Never smoker ROS ROS ED Constitutional Constitutional ED: Reports fever(s); Denies chills Eyes Eyes: Denies blurry vision or change in vision ENT ENT ED: Denies rhinorrhea or sore throat Cardiovascular Cardiovascular: Denies chest pain or palpitations Respiratory/Chest Respiratory/Chest: Denies cough or dyspnea Gastrointestinal Gastrointestinal: Reports nausea; Denies vomiting Genitourinary Genitourinary ED: Denies dysuria or hematuria Musculoskeletal Musculoskeletal: Reports myalgias; Denies neck pain Integumentary Denies abscess or rash Neurologic Neurologic: Reports headache(s); Denies weakness Allergic/Immunologic Allergic/Immunologic ED: Denies mouth swelling or urticaria EXAM Physical Exam Const Vital Signs: 11/29/24 17:06 11/29/24 17:16 11/29/24 18:09 Temperature 97.8 F 100.2 F H 100.2 F H Temperature Source Temporal Oral Oral Pulse Rate 98 102 H 110 H Pulse Rate [Lying] Pulse Rate [Sitting (for 1 minute prior to obtaining)] Pulse Rate [Standing (for 1 minute prior to obtaining)] Respiratory Rate 19 H 17 19 H Blood Pressure 141/83 H 123/78 H 115/73 Blood Pressure [Lying] Blood Pressure [Sitting (for 1 minute prior to obtaining)] Blood Pressure [Standing (for 1 minute prior to obtaining)] Blood Pressure Mean 102 93 87 Blood Pressure Mean [Lying] Blood Pressure Mean [Sitting (for 1 minute prior to obtaining)] Blood Pressure Mean [Standing (for 1 minute prior to obtaining)] Pulse Ox 99 98 95 Oxygen Delivery Method Room Air Room Air Room Air 11/29/24 19:39 11/29/24 19:58 Temperature Temperature Source Pulse Rate 70 Pulse Rate [Lying] 80 Pulse Rate [Sitting (for 1 minute prior to obtaining)] 88 Pulse Rate [Standing (for 1 minute prior to obtaining)] 108 H Respiratory Rate 21 H Blood Pressure 105/61 Blood Pressure [Lying] 111/64 Blood Pressure [Sitting (for 1 minute prior to obtaining)] 110/70 Blood Pressure [Standing (for 1 minute prior to obtaining)] 109/69 Blood Pressure Mean 75 Blood Pressure Mean [Lying] 79 Blood Pressure Mean [Sitting (for 1 minute prior to obtaining)] 83 Blood Pressure Mean [Standing (for 1 minute prior to obtaining)] 82 Pulse Ox 97 Oxygen Delivery Method Room Air Positive well nourished and well developed General Appearance ED: well developed and NAD HEENT Reports moist mucous membranes Neck supple and no JVD Resp normal respiratory effort and clear to auscultation bilaterally Cardio regular rate and regular rhythm GI non-tender and non-distended Palpation: soft Extremity normal to inspection General Extremety ED: Negative for edema or tenderness General Extremity: Negative for edema Neuro oriented x3, CN's II-XII intact bilaterally and no sensory deficits noted Sensorium / Orientation: alert Motor Exam: strength 5/5 throughout Psych mental status grossly normal MDM MDM MDM Narrative Medical decision making narrative: Differential diagnosis includes urinary tract infection, bronchitis, viral illness, electrolyte abnormality, near syncope, cardiac dysrhythmia, cardiac ischemia, dehydration, and hypovolemia. EKG will be obtained to assess for cardiac dysrhythmia and cardiac ischemia. Chest x-ray will be obtained to assess for pneumonia and bronchitis. CBC will be obtained to assess for leukocytosis and anemia. Comprehensive metabolic profile will be obtained to assess for electrolyte abnormality, hepatic function, and renal function. Urinalysis will be obtained to assess for urinary tract infection and hematuria. Orthostatic vital signs will be obtained to assess for hypovolemia and dehydration. COVID-19, influenza, and RSV PCR will be obtained to assess for viral illness. Lab Data Attestation: I reviewed the patient's lab results. Lab results narrative: CBC was reviewed. There is a slight leukocytosis of 12.7. The remainder is within normal limits. Comprehensive metabolic profile was reviewed and was within normal limits with the exception of a slightly elevated alkaline phosphatase of 130. Urinalysis was reviewed. Leukocyte Estrace was 500. There are 25-50 white blood cells and 4+ bacteria. COVID-19 PCR was reviewed and was negative. Influenza PCR was reviewed and was negative for influenza A and influenza B. RSV PCR was reviewed and was negative. Labs: Laboratory Results - last 24 hr 11/29/24 11/29/24 11/29/24 17:13 17:20 18:12 WBC 12.7 H RBC 4.79 Hgb 13.9 Hct 42.4 MCV 88.5 MCH 29.0 MCHC 32.8 RDW Std Deviation 38.3 RDW Coeff of Arabella 11.8 Plt Count 266 MPV 10.1 Immature Gran % (Auto) 0.200 Neut % (Auto) 87.4 H Lymph % (Auto) 9.6 L Fisher % (Auto) 0.9 Eos % (Auto) 1.6 Baso % (Auto) 0.3 Absolute Neuts (auto) 11.1 H Absolute Lymphs (auto) 1.22 Nucleated RBC % 0 Sodium 140 Potassium 3.9 Chloride 104 Carbon Dioxide 22.0 Anion Gap 14 BUN 10 Creatinine 0.84 Estim Creat Clear Calc 98.69 Est GFR (MDRD) Non-Af 99 BUN/Creatinine Ratio 12.1 Glucose 82 Calcium 8.8 Total Bilirubin 0.66 AST 29 ALT 28 Alkaline Phosphatase 130 H Total Protein 6.4 Albumin 4.1 Globulin 2.3 Albumin/Globulin Ratio 1.8 Urine Color Straw Urine Clarity Cloudy Urine pH 6.0 Ur Specific [place] 1.010 Urine Protein 15 H Urine Glucose (UA) Normal Urine Ketones Negative Urine Occult Blood 25 H Urine Nitrite Negative Urine Bilirubin Negative Urine Urobilinogen Normal Ur Leukocyte Esterase 500 H Urine RBC 0 SEEN Urine WBC 25-50 SEEN Ur Squamous Epith Cells 0-5 SEEN Urine Bacteria 4+ Urine Mucus 0 SEEN POC Glucose 86 Radiography Chest X-Ray - ED: 2 View, Read by ED Physician, Read by Radiologist and No Acute Disease Diagnostic Testing: Clinical Impression(s) from Imaging Studies Chest X-Ray 11/29/24 19:20 IMPRESSION: No acute airspace abnormality. Reading Location: [facility] and lateral chest x-ray was obtained. There are 2 views. On my independent interpretation, lung sharp are clear. There is normal cardiac silhouette. Bony thorax is normal. There is no acute process noted. Radiologist also interpreted the x-ray and agrees. EKG Initial EKG: Attestation: I personally reviewed and interpreted this EKG as follows: Interpretation: Sinus Rhythm (99) and Non-Specific ST Changes Comments: EKG was obtained. On my independent interpretation, it showed a normal sinus rhythm with a rate of 99. PA interval, QRS interval, and QTc intervals were all normal. [place] was normal. There are nonspecific ST-T wave changes. Prior EKG tracings: available for review Prior: Unchanged (01/27/2020) Treatment and Re-Evaluation :: Orthostatic vital signs were obtained and were within normal limits. Patient was advised of her findings. Patient was given a dose of Rocephin here. Patient was given a dose of Tylenol. Patient was given a prescription for Keflex. Patient was instructed to drink plenty of fluids. Patient was instructed to continue with Tylenol and ibuprofen as needed for any fevers. Patient was instructed to follow-up with her primary care physician and [facility] in 5 to 7 days. Patient was instructed to return if worse in any way. Patient understood and was agreeable with the plan. All questions were answered. Discharge Plan Triage Chief Complaint: Dizziness ED Provider: David Pleitez Dx/Rx/DC Orders Clinical Impression: Urinary tract infection, Near syncope Instructions: ED Dizziness, Uncertain Cause, ED Cystitis Female Adult Prescriptions: New cephalexin 500 mg capsule 500 mg PO Q6 Qty: 12 0RF No Action meloxicam 15 mg tablet 15 mg PO DAILY Qty: 21 1RF venlafaxine 150 MG capsule 150 mg PO QHS norethindrone ac-eth estradiol 1 EACH tablet 1 ea PO DAILY docusate sodium 100 MG capsule 100 mg PO BID PRN PRN (Reason: Constipation) Qty: 60 0RF ibuprofen 600 MG tablet 600 mg PO TID PRN (Reason: Pain) Qty: 30 0RF Primary Care Provider: PodlogNatalia parsons NP Referrals: Hailey Gimenez MD [Med Staff - [facility]] - 5-7 Days PodlogNatalia parsons NP, [facility] [Primary Care Provider] - 5-7 Days Activity Restrictions/Additional Instructions: Follow-up with your [facility] in 5 to 7 days as well. Print Language: Japanese Disposition Disposition: Home, Self Care
[2024-11-29 17:30] LABS: Bedside Glucose 86 mg/dL (74-106)
--- NOTE | 2024-11-29 17:50 | EKG12_ITS ---
Test Reason : SYNCOPE Blood Pressure : */* mmHG Vent. Rate : 99 BPM Atrial Rate : 99 BPM P-R Int : 122 ms QRS Dur : 80 ms QT Int : 318 ms P-R-T Axes : 42 71 21 degrees QTcB Int : 408 ms Normal sinus rhythm T wave abnormality, consider inferior ischemia Abnormal ECG Confirmed by JAMEEL AVERY, LEONARDO ([id number]), news assignment editor GUNNAR CHRIS ([id number]) on 12/01/2024 6:43:50 AM Referred By: Confirmed By: LEONARDO JORGENSEN MD
[2024-11-29] MEDS: 0.9% Normal Saline (1000mL) 1,000 ML 1000 ML IV (18:01)
[2024-11-29] MEDS: Acetaminophen 500 MG Tablet 1000 MG PO (18:01)
[2024-11-29 18:23] LABS: Mucous, Urine 0 SEEN /hpf (<or=2+); Red Blood Cells-Urine 0 SEEN /hpf (0-5)
[2024-11-29 18:34] LABS: Absolute Lymphocyte Count 1.22 X10^3/uL (0.83-4.51); Absolute Neutrophil Count 11.1 X10^3/uL (2.0-7.7); Basophil# 0.04 X10^3/uL; Basophil% 0.3 % (0-1); Eosinophils% 1.6 % (0-5); Hematocrit 42.4 % (37-47); Hemoglobin 13.9 g/dL (12.0-15.0); Lymphocyte # 1.22 X10^3/ul (0.83-4.51); Lymphocyte % 9.6 % (19-41); Mean Corp Hgb Conc 32.8 g/dL (32-36); Mean Corpuscular Volume 88.5 fL (81-99); Mean Platelet Vol. 10.1 fl (6.2-12.0); Monocyte# 0.11 X10^3/uL; Monocyte% 0.9 % (0-10); NRBC Flagged by Analyzer 0 % (0-5); Neutrophil # 11.14 X10^3/uL (2.7-7.7); Neutrophil % 87.4 % (47-70); Platelet Count 266 K/mm3 (150-450); RBC Distribution Width CV 11.8 % (11.6-14.6); RBC Distribution Width SD 38.3 fl (35.1-43.9); Red Blood Count 4.79 M/mm3 (4.2-5.4); White Blood Count 12.7 K/mm3 (4.4-11.0)
[2024-11-29 18:34] LABS: Color, Urine Straw (Yellow); Glucose, Dipstick Normal (Normal); Ketone-Dipstick Negative (Negative); Leukocyte Esterase-Dipstick 500 /ul (Negative); Nitrite-Dipstick Negative (Negative); Occult Blood-Urine 25 /ul (Negative); Protein-Dipstick 15 mg/dl (Negative); Urine Bilirubin Dipstick Negative (Negative); Urine Clarity Cloudy (Clear); Urine Urobilinogen Normal (Normal)
[2024-11-29 18:39] LABS: Bacteria 4+ /hpf (None Seen); Squamous Epithelial Cells - UA 0-5 SEEN /hpf (5-10); White Blood Cells 25-50 SEEN /hpf (0-5)
[2024-11-29 18:44] LABS: ALB/GLOB Ratio 1.8 RATIO (0.9-2.4); AST(SGOT) 29 U/L (<=31); Alanine Aminotransfer ALT/SGPT 28 U/L (<=34); Albumin, Serum 4.1 g/dL (3.5-5.0); Alkaline Phosphatase 130 U/L (35-104); Anion Gap 14 (5-15); BUN 10 mg/dL (4-19); BUN/Creat Ratio 12.1 RATIO (10-20); Calcium,Total 8.8 mg/dL (7.6-11.0); Chloride 104 mmol/L (98-108); Creatinine, Serum 0.84 mg/dL (0.70-1.20); EST Glomerular Filtration Rate 99 (>60); Estimated Creatinine Clearance 98.69 ml/min (50-250); Globulin 2.3 g/dL (2.2-4.2); Glucose 82 mg/dL (70-99); Potassium 3.9 mmol/L (3.3-5.1); Protein, Total 6.4 g/dL (5.9-8.4); Sodium Level 140 mmol/L (133-145); Total Bilirubin 0.66 mg/dL (0.00-1.30)
--- OUTSIDE RECORDS SUMMARY | 2024-11-29 18:54 | XMS RPT_ITS | CCD ---
Author Organization [facility] Care Team Providers Care Early Childhood Teacher Name Role Phone Pernell AVERY, Hailey Gunn Primary Care Provider 1( [phone] JUAN VALENTINO Attending Unavail able ANGY MANDEL Referring Unava ilable HAILEY GIMENEZ Primary Care Unavailable JUAN VALENTINO Attending Unavail able HAILEY GIMENEZ Primary Care Unavailable JUAN VALENTINO Attending Unavail able HAILEY GIMENEZ Primary Care Unavailable Hailey Gimenez Attending Unavailable Hailey Gimenez Primary Care Unavailable Unavailable Primary Care Provider Unavailakila e Unavailable Primary Care Provider Unavailakila e Caridad Wheeler MD Primary Care Provider Podlogar NETWORK PRICING CONSULTANT.Natalia PATTEN Unavailable Nacho NETWORK PRICING CONSULTANT.Tamanna PATTEN Unavailable NATALIA KEVIN Referring Unavailable NATALIA KEVIN Attending Unavailable TAMANNA ALCALA Attending Unavailable SELF Referring Unavailable CARIDAD WHEELER Primary Care Unavailab CARIDAD Hunter Primary Care Unavailab wu PODLOGNATALIA PARSONS Referring Unavailable CARIDAD WHEELER Primary Care Unavailab TAMANNA Aranda Referring Unavailable CARIDAD WHEELER Primary Care Unavailab BROOKE Babin Referring Unavailable CARIDAD WHEELER Primary Care Unavailab BECCA Calvo Admitting Unavailable BECCA VILLANUEVA Attending Unavailable CARIDAD WHEELER Primary Care Unavailab BROOKE Babin Referring Unavailable CARIDAD WHEELER Primary Care Unavailab le SOVACOOL, STEPH L Referring Unavailable CARIDAD WHEELER Primary Care Unavailab le CARIDAD WHEELER Primary Care Unavailab le SOVACOOL, STEPH L Admitting Unavailable STEPH GRAJEDA Attending Unavailable Medications Current Medications Medication Drug Class(es) Dates Sig (Normalized) Sig (Original) busPIRone hydrochloride 10 mg oral tablet (11 sources) Start: 05-17-2023 End: 09-11-2024 take 1 tablet by mouth twice daily in the evening busPIRone (BUSPAR) 10 mg tablet Indications: JOHANN (generalized anxiety disorder) Take 1 tablet by mouth two times a day. 180 tablet 1 09/25/2024 4:09 PM EDT 09/11/2024 Active celecoxib 200 mg oral capsule (2 sources) Nonsteroidal Anti-inflammatory Drug Start: 05-31-2021 End: 06-30-2021 take 1 capsule by mouth twice daily celecoxib (CELEBREX) 200 MG capsule Indications: Endometriosis , Dysmenorrhea Take 1 (one) capsule (200 mg total) by mouth 2 (two) times a day . 60 capsule 0 05/31/2021 06/30/2021 Active cyclobenzaprine hydrochloride 5 mg oral tablet (3 sources) Muscle Relaxant Start: 09-11-2024 take 1 tablet by mouth every eight hours as needed cyclobenzaprine (FLEXERIL) 5 mg tablet Take 1 tablet by mouth three times a day as needed. 30 tablet 09/14/2024 4:39 PM EDT 09/11/2024 Active docusate sodium 100 mg oral capsule (2 sources) Start: 05-07-2018 take 100 mg by mouth twice daily as needed Docusate Sodium Active 100 MG PO TWICE DAILY NEEDED 60 May 07, 2018 1:00am ethinyl estradiol 0.03 mg / norethindrone acetate 1.5 mg oral tablet (2 sources) Estrogen Start: 04-30-2018 Norethindrone Ac-Eth Estradiol Active 1 EACH PO DAILY April 30, 2018 1:00am ferrous sulfate 325 mg oral tablet (5 sources) take 1 tablet by mouth once daily ferrous sulfate (IRON) 325 mg (65 mg iron) tablet Take 325 mg by mouth once daily. Active ibuprofen 600 mg oral tablet (2 sources) Nonsteroidal Anti-inflammatory Drug Start: 05-07-2018 take 600 mg by mouth three times daily Ibuprofen Active 600 MG PO THREE TIMES A DAY May 07, 2018 5:35pm ketoconazole 20 mg/ml medicated shampoo (4 sources) Azole Antifungal Start: 02-02-2024 ketoconazole (NIZORAL) 2 % shampoo wash the scalp every other wash, lathering and letting shampoo sit for 3 to 5 minutes before rinsing 120 mL 12 02/02/2024 Active meloxicam 15 mg oral tablet (2 sources) Nonsteroidal Anti-inflammatory Drug Start: 06-11-2019 take 15 mg by mouth once daily Meloxicam Active 15 MG PO DAILY June 11, 2019 1:00am mv,iron,xwt-JK-aziss ry cmb.24 400 mcg tab (9 sources) Start: 02-26-2024 take 1 tablet by mouth once daily mv,iron,min-FA-diet agnieszka cmb.24 400 mcg tab Take 1 tablet by mouth once daily. 02/26/2024 Active nitrofurantoin, macrocrystals 25 mg / nitrofurantoin, monohydrate 75 mg oral capsule (4 sources) Nitrofuran Antibacterial Start: 08-31-2024 take 1 capsule by mouth twice daily nitrofurantoin monohydrate and macrocrystal (MACROBID) 100 mg capsule Take 1 capsule by mouth two times a day. 14 capsule 08/31/2024 Active prental multivitamin ( VITAMIN) 27 mg iron- 800 mcg tablet (9 sources) Start: 02-26-2024 take 1 tablet by mouth once daily prental multivitamin ( VITAMIN) 27 mg iron- 800 mcg tablet Take 1 tablet by mouth once daily. 02/26/2024 Active roflumilast (ZORYVE) 0.3 % foam (4 sources) Start: 01-31-2024 roflumilast (ZORYVE) 0.3 % foam Apply to the affected area once daily. Do not exceed 2 grams per day 60 g 3 01/31/2024 Active 24 hr venlafaxine 75 mg extended release oral capsule (15 sources) Serotonin and Norepinephrine Reuptake Inhibitor Start: 05-19-2021 venlafaxine (EFFEXOR-XR) 150 MG 24 hr capsule Start: 04-30-2018 take 150 mg by mouth at bedtim e Venlafaxine Active 150 MG PO AT BEDTIME April 30, 2018 1:00am Start: 12-24-2016 End: 09-11-2024 take 1 capsule by mouth once daily in the evening venlafaxine ER (EFFEXOR XR) 75 mg 24 hr capsule Indications: JOHANN (generalized anxiety disorder) Take 1 capsule by mouth once daily. 90 capsule 1 09/14/2024 4:39 PM EDT 09/11/2024 Active Completed/Discontinued Medications Medication Drug Class(es) Dates Sig (Normalized) Sig (Original) dexamethasone 0.5 mg oral tablet (2 sources) Corticosteroid Start: 04-30-2018 End: 06-11-2019 take 0.5 mg by mouth at bedtime Dexamethasone Discontinued 0.5 MG PO AT BEDTIME April 30, 2018 1:00am June 11, 2019 9:10am oxyCODONE hydrochloride 5 mg oral tablet (2 sources) Opioid Agonist Start: 05-07-2018 End: 05-14-2018 take 5 mg by mouth every six hours as needed Oxycodone Discontinued 5 MG PO EVERY 6 HOURS NEEDED 18 7 May 07, 2018 1:00am May 14, 2018 1:08am spironolactone 50 mg oral tablet (2 sources) Aldosterone Antagonist Start: 04-30-2018 End: 06-11-2019 take 50 mg by mouth at bedtime Spironolactone Discontinued 50 MG PO AT BEDTIME April 30, 2018 1:00am June 11, 2019 9:10am Problems Active Problems Problem Classification Problem Date Documented Date Episodic/Chronic Anxiety disorders (4 sources) Generalized anxiety disorder; Translations: [Generalized anxiety disorder] Onset: 02-26-2024 02-26-2024 Chronic Endometriosis (5 sources) Endometriosis (clinical); Translations: [Endometriosis, unspecified] Onset: 05-31-2021 Chronic Immunizations and screening for infectious disease (3 sources) Suspected disease caused by 2019-nCoV; Translations: [Suspected 2019 novel coronavirus infection] Onset: 10-29-2024 02-20-2023 Episodic Malaise and fatigue (1 source) Other fatigue; Translations: [Other fatigue] Onset: 01-24-2023 Episodic Menstrual disorders (4 sources) Dysmenorrhea; Translations: [Dysmenorrhea, unspecified] Onset: 06-16-2021 Chronic Other congenital anomalies (1 source) Congenital anomaly of skin; Translations: [Other specified congenital malformations of skin] Onset: 02-03-2009 06-16-2021 Chronic Other inflammatory condition of skin (1 source) Pityriasis alba; 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] Onset: 05-10-2009 06-16-2021 Chronic Other and delivery including normal (4 sources) Encounter for supervision of normal first , third trimester; Translations: [Encounter for supervision of normal , unspecified, unspecified trimester] Onset: 04-30-2024 Episodic Residual codes; unclassified (1 source) 36 weeks gestation of ; Translations: [36 weeks gestation of (HCC)] Onset: 11-05-2024 Episodic Residual codes; unclassified (1 source) 28 weeks gestation of ; Translations: [28 weeks gestation of (HCC)] Onset: 09-11-2024 Episodic Thyroid disorders (4 sources) Goiter; Translations: [Nontoxic goiter, unspecified] Onset: 02-03-2024 02-26-2024 Chronic Unclassified (1 source) [employer] Onset: 11-11-2024 11-11-2024 Past or Other Problems Problem Classification Problem Date Documented Da te Episodic/Chronic Allergic reactions (1 source) Contact dermatitis; Translations: [Unspecified contact dermatitis, unspecified cause] Onset: 02-03-2009 06-16-2021 Episodic Cardiac dysrhythmias (2 sources) Tachycardia; Translations: [Tachycardia, unspecified] Onset: 02-26-2024 02-26-2024 Episodic Early or threatened labor (1 source) labor in third trimester with delivery in third trimester; Translations: [ labor third trimester with delivery third trimester, not applicable or unspecified] Onset: 11-10-2024 Resolved: 11-11-2024 11-11-2024 Episodic Other skin disorders (1 source) Disorder of pigmentation; Translations: [Disorder of pigmentation, unspecified] Onset: 05-10-2009 06-16-2021 Episodic Other skin disorders (1 source) Disorder of sebaceous gland; Translations: [Other specified follicular disorders] Onset: 02-03-2009 06-16-2021 Episodic Residual codes; unclassified (1 source) 11 weeks gestation of ; Translations: [11 weeks gestation of ] Onset: 05-12-2024 Episodic Residual codes; unclassified (1 source) 8 weeks gestation of ; Translations: [8 weeks gestation of ] Onset: 04-30-2024 Episodic Screening and history of mental health and substance abuse codes (4 sources) Patient encounter status; Translations: [Encounter for screening for depression] Onset: 02-26-2024 02-26-2024 Episodic Results Test Name Value Interpretation Reference Range Charlie Valencia 11-13-2024 CNPN Telephone (MRLACT) EUGENE AHMADI ([id number]) 1995 [facility] Date Time Provider Department 11/13/24 GILBERTO RIVERA MRLACT During your visit today, we recorded the following information about you: Gilberto Rivera RN 11/13/2024 11:40 AM Signed OB Post Discharge Patient Call Back: Date: 11/13/2024 Patient Name: Eugene Ahmadi : 1995 Delivery Summary: Nina Ahmadi [[id number]] Delivery Information: Delivery Date: 11/09/24 Delivery type: Vaginal, Spontaneous Delivering Clinician: Steph Grajeda MD Vacuum Used: No Forceps Used: No Shoulder Dystocia Present: No Lacerations: 2nd, Labial Episiotomy: None [place]: Gender: Female Weight (grams): 3170 g One Minute : 8 Five Minute : 8 Patient was contacted after her inpatient discharge from [facility]. She reported the following as it relates to her recovery and hospital experience: General Physical: We discussed how she was doing physically. She reported the following: Bleeding: moderate Pain: mild and moderate Other Signs or Symptoms: No Overall Mood: Patient was informed that Baby Blues are feelings of sadness that a woman may experience in the first few days after having a baby. Baby Blues can happen 2-3 days after delivery and can last up to two weeks. These feelings usually go away on their own and does not require treatment. Tell your doctor if you have sad feelings that last longer than two weeks. He/she may want to check you for a more serious condition called Post Depression (PPD). This can occur as early as one week and up to one year after giving . PPD warning signs include: Thinking of hurting yourself of your baby Feeling out of control, unable to care for self or baby Feeling depressed or sad most of the day every day Having trouble sleeping or sleeping too much Having trouble bonding with your baby Safe Sleep: I reviewed safe sleep environments for infants and the ABC's (alone back crib) for sleeping with the patient. She reported the following. The (s) sleeps in: Bassinet Baby in need of a crib/Hjqp-ibq-Czlr: No Baby's feeding: Method: Human milk only. Breast Feeding Problems: Seeing analysis consultant, scheduled for today in [place] Frequency: Within Normal Limits Education: N/A Baby's elimination habits: Average wet diapers: Within Normal Limits Average dirty diapers: Within Normal Limits Education: N/A Follow-up appointments: Scheduled appointment with a cognos consultant: Yes Scheduled a follow up appointment with OB provider: Yes Suggestions/Concerns : Things that could have been done better during your stay: N/A Current concerns: N/A Referral(s): Patient referred to: N/A Gilberto Rivera RN Allergies As of Date: 11/13/2024 (No Known Allergies) Date Reviewed: 11/11/2024 Reviewed by: Alma Tinajero, EL - Fully Assessed Reason for Visit: Breast Feeding [[id number]] Follow Up Phone Call [[id number]] Prescriptions as of 11/13/2024 - busPIRone (BUSPAR) 10 mg tablet Take 1 tablet by mouth two times a day. - venlafaxine ER (EFFEXOR XR) 75 mg 24 hr capsule Take 1 capsule by mouth once daily. - ferrous sulfate (IRON) 325 mg (65 mg iron) tablet Take 325 mg by mouth once daily. - prental multivitamin ( VITAMIN) 27 mg iron- 800 mcg tablet Take 1 tablet by mouth once daily. - mv,iron,cqj-RZ-fmshu ry cmb.24 400 mcg tab Take 1 tablet by mouth once daily. Problem List As Of Date 11/13/2024 Noted Resolved labor in third trimester with d*11/10/2024 11/11/2024 Encounter Status:Closed by GILBERTO RIVERA on 11/13/24 [facility] NURSING PROGon 11-13-2024 NURSING PROG HNO ID: [id number] Author: GILBERTO RIVERA, RN Service: ? Author Type: Registered Nurse Type: Nursing Progress Note Filed: 11/13/2024 11:40 Note Text: OB Post Discharge Patient Call Back: Date: 11/13/2024 Patient Name: Eugene Ahmadi : 1995 Delivery Summary: Nina Ahmadi [[id number]] Delivery Information: Delivery Date: 11/09/24 Delivery type: Vaginal, Spontaneous Delivering Clinician: Steph Grajeda MD Vacuum Used: No Forceps Used: No Shoulder Dystocia Present: No Lacerations: 2nd, Labial Episiotomy: None [place]: Gender: Female Weight (grams): 3170 g One Minute : 8 Five Minute : 8 Patient was contacted after her inpatient discharge from [facility]. She reported the following as it relates to her recovery and hospital experience: General Physical: We discussed how she was doing physically. She reported the following: Bleeding: moderate Pain: mild and moderate Other Signs or Symptoms: No Overall Mood: Patient was informed that Baby Blues are feelings of sadness that a woman may experience in the first few days after having a baby. Baby Blues can happen 2-3 days after delivery and can last up to two weeks. These feelings usually go away on their own and does not require treatment. Tell your doctor if you have sad feelings that last longer than two weeks. He/she may want to check you for a more serious condition called Post Depression (PPD). This can occur as early as one week and up to one year after giving . PPD warning signs include: Thinking of hurting yourself of your baby Feeling out of control, unable to care for self or baby Feeling depressed or sad most of the day every day Having trouble sleeping or sleeping too much Having trouble bonding with your baby Safe Sleep: I reviewed safe sleep environments for infants and the ABC's (alone back crib) for sleeping with the patient. She reported the following. The (s) sleeps in: Bassinet Baby in need of a crib/Tzau-gxv-Cysz: No Baby's feeding: Method: Human milk only. Breast Feeding Problems: Seeing analysis consultant, scheduled for today in [place] Frequency: Within Normal Limits Education: N/A Baby's elimination habits: Average wet diapers: Within Normal Limits Average dirty diapers: Within Normal Limits Education: N/A Follow-up appointments: Scheduled appointment with a cognos consultant: Yes Scheduled a follow up appointment with OB provider: Yes Suggestions/Concerns : Things that could have been done better during your stay: N/A Current concerns: N/A Referral(s): Patient referred to: N/A [facility] HNO ID: [id number] Author: BROOKE MENDENHALL MD Service: Obstetrics Author Type: Physician Type: Discharge Summary Filed: 11/11/2024 08:37 Note Text: DISCHARGE SUMMARY OBSTETRICS PATIENT NAME: Eugene Ahmadi ADMISSION DATE: 11/09/2024 DISCHARGE DATE: 11/11/2024 Attending Physician: Steph Grajeda MD Code Status: Prior Treatment Team: Attending Provider: Steph Grajeda MD Maternal Obstetric Provider: Steph Grajeda Reason for Hospitalization: Intrauterine . Principal Problem (Resolved): labor in third trimester with delivery (HCC) (POA: Yes) Active Problems: * No active hospital problems. * PROCEDURES/SURGERY DURING HOSPITALIZATION: Delivery Summary: Gabe Ahmadi [[id number]] Delivery Information: Delivery Date: 11/09/24 Delivery type: Vaginal, Spontaneous Delivering Clinician: Steph Grajeda MD Vacuum Used: No Forceps Used: No Shoulder Dystocia Present: No Lacerations: 2nd, Labial Episiotomy: None : Gender: Female Weight (grams): 3170 g One Minute : 8 Five Minute : 8 Procedures (if applicable) Hospital Course: 28 year old female who is Day #2 from delivery as noted above. Pt's peripartum course was uncomplicated. The delivery was uncomplicated. Consulting Teams During Hospitalization: None Patient Condition @ Discharge: Good Discharge Disposition: Home/Self Care Specific Concerns for Follow-up Post Discharge: Routine Care Information Provided to Patient: Activity When You Leave the Hospital Gradually increase your activity until back to normal. Walking and stairs as tolerated. You are expected to maintain pelvic rest for six weeks post which includes no sexual activity, tampons or douching. You may drive as tolerated You may shower daily. Gently pat your perineum with a soapy washcloth and rinse. Sitz baths are also helpful, but avoid baths until your bleeding has stopped. Diet Instructions Resume a regular diet with emphasis on healthy and iron rich foods. Nursing moms need 500 EXTRA calories a day to support breast milk production. Wound/Surgical Site Care Use marlo/squirt bottle to rinse your perineal area with warm water after urination or bowel movements Use marlo/squirt bottle to rinse your perineal area with warm water until vaginal bleeding/drainage ceases You may spot bleed for up to six week post- Discharge Medications: Medication List CONTINUE taking these medications busPIRone 10 mg tablet Commonly known as: BUSPAR Take 1 tablet by mouth two times a day. Iron 325 mg (65 mg iron) tablet Generic drug: ferrous sulfate mv,iron,ohh-II-majvb ry cmb.24 400 mcg Tab Take 1 tablet by mouth once daily. VITAMIN 27 mg iron- 0.8 mg tablet Generic drug: prental multivitamin Take 1 tablet by mouth once daily. venlafaxine ER 75 mg 24 hr capsule Commonly known as: EFFEXOR XR Take 1 capsule by mouth once daily. STOP taking these medications cyclobenzaprine 5 mg tablet Commonly known as: FLEXERIL ketoconazole 2 % shampoo Commonly known as: NIZORAL nitrofurantoin monohydrate and macrocrystal 100 mg capsule Commonly known as: MACROBID ZORYVE 0.3 % foam Generic drug: roflumilast ALLERGIES No Known Allergies Future Appointments: Follow Up Appointments Follow-Up Appointment With: Primary Provider When: In 6 weeks Patient/Parents to call for appointment?: No I have performed the bgoz-if-vehp and relevant services for a total of < 30 minutes. Plan of care discussed with: Provider, RN, Patient. Final Diagnosis: labor with delivery. Active Hospital Problems No active problems to display. Resolved Hospital Problems Diagnosis POA labor in third trimester with delivery (HCC) Yes SIGNATURE: Brooke Mendenhall MD DATE: November 11, 2024 TIME: 8:36 AM Normal [facility] CBC panel Auto (Bld)on 11-10 Erythrocyte distribution width (RBC) [Ratio] 12.7 % Normal 11.5-15.0 [facility] Comment on above: Order Comment: Speci jeffry Type: BLOOD SPECIMEN Ordering Facility: [facility] Address: [address], [place] [address] Performed By: #### 3 016-3, 2731-8, 3024-7, 3051-0, 34679-8 #### [facility] CLIA [id number] [address] [place] [address] [place] Hematocrit (Bld) [Volume fraction] 34.6 % Low 36.0-46.0 [facility] Comment on above: Order Comment: Speci jeffry Type: BLOOD SPECIMEN Ordering Facility: [facility] Address: [address] [place] [address] Performed By: #### 3 016-3, 2731-8, 3024-7, 3051-0, 65203-7 #### [facility] CLIA [id number] [address] [place] [address] [place] Hemoglobin (Bld) [Mass/Vol] 11.4 g/dL Low 11.5-15.5 [facility] Comment on above: Order Comment: Wilneri jeffry Type: BLOOD SPECIMEN Ordering Facility: [facility] Address: [address], [place] [address] Performed By: #### 3 016-3, 2731-8, 3024-7, 3051-0, 61578-7 #### [facility] CLIA [id number] [address] [place] [address] [place] MCH (RBC) [Entitic mass] 29.3 pg Normal 26.0-34.0 [facility] Comment on above: Order Comment: Wilneri jeffry Type: BLOOD SPECIMEN Ordering Facility: [facility] Address: [address], [place] [address] Performed By: #### 3 016-3, 2731-8, 3024-7, 3051-0, 86573-4 #### [facility] CLIA [id number] [address] [place], [place] [id number] [facility] MCHC (RBC) [Mass/Vol] 32.9 g/dL Normal 30.5-36.0 [facility] Comment on above: Order Comment: Speci men Type: BLOOD SPECIMEN Ordering Facility: [facility] Address: [address] [place] [address] Performed By: #### 3 016-3, 2731-8, 3024-7, 3051-0, 71103-7 #### [facility] CLIA [id number] [address] [place] [address] MCV (RBC) [Entitic vol] 88.9 fL Normal 80.0-100.0 [facility] Comment on above: Order Comment: Speci men Type: BLOOD SPECIMEN Ordering Facility: [facility] Address: [facility] [place] [address] Performed By: #### 3 016-3, 2731-8, 3024-7, 3051-0, 95430-4 #### [facility] CLIA [id number] [address] [place] [address] [place] Nucleated RBC (Bld) [#/Vol] 10*3/uL Normal <0.01 [facility] Comment on above: Order Comment: Speci men Type: BLOOD SPECIMEN Ordering Facility: [facility] Address: [facility] [place] [address] Performed By: #### 3 016-3, 2731-8, 3024-7, 3051-0, 91753-6 #### [facility] CLIA [id number] [address] [place] [address] OF [place] Platelet mean volume (Bld) [Entitic vol] 9.7 fL Normal 9.0-12.7 [facility] Comment on above: Order Comment: Speci men Type: BLOOD SPECIMEN Ordering Facility: [facility] Address: [address], [place] [address] Performed By: #### 3 016-3, 2731-8, 3024-7, 3051-0, 06351-0 #### [facility] CLIA [id number] [address] [place] [address] [facility] [place] Platelets (Bld) [#/Vol] 192 10*3/uL Normal 150-400 [facility] Comment on above: Order Comment: Speci men Type: BLOOD SPECIMEN Ordering Facility: [facility] Address: [address], [place] [address] Performed By: #### 3 016-3, 2731-8, 3024-7, 3051-0, 27009-9 #### [facility] CLIA [id number] [address] [place], [place] [id number] [facility] RBC (Bld) [#/Vol] 3.89 10*6/uL Low 3.90-5.20 [facility] Comment on above: Order Comment: Speci men Type: BLOOD SPECIMEN Ordering Facility: [facility] Address: [address], [place] [address] Performed By: #### 3 016-3, 2731-8, 3024-7, 3051-0, 38505-6 #### [facility] CLIA [id number] [address] [place], [place] [id number] [facility] [place] WBC (Bld) [#/Vol] 18.87 10*3/uL High 3.70-11.00 [facility] Comment on above: Order Comment: Speci men Type: BLOOD SPECIMEN Ordering Facility: [facility] Address: [address], [place] [address] Performed By: #### 3 016-3, 2731-8, 3024-7, 3051-0, 12569-3 #### [facility] CLIA [id number] [address] [place], [place] [address] [facility] NURSING PROGon 11-10-2024 NURSING PROG HNO ID: [id number] Author: CLEMENTE LOVING RN Service: ? Author Type: Registered Nurse Type: Nursing Progress Note Filed: 11/10/2024 00:35 Note Text: Infant on Blood Glucose checks due to gestational age. Infant latch not adequate. Mother educated on latch and positioning as well as gentle waking techniques. Mother verbalizes all understanding of education. blood glucose is borderline and not well. Donor milk and breast pumping education completed, mother agreed to pump breast milk in between breast feeds. Mother requested use of hand pump for the night as she expressed feeling overwhelmed with pumping. Pumping education completed. All needs met at this time. [facility] ANES POSTPROC EVALon 025 ANES POSTPROC EVAL HNO ID: [id number] Author: DEE LARA MD Service: Anesthesiology Author Type: Nurse Loan Coordinator Type: Anesthesia Postprocedure Evaluation Filed: 11/09/2024 17:54 Note Text: Attestation signed by Dee Lara MD at 11/09/2024 5:54 PM Staff Note I have reviewed pertinent medical records/tests regarding this patient. Agree with the anesthesia provider's assessment and plan. Dee Lara MD 11/09/2024 5:54 PM POST ANESTHESIA EVALUATION NOTE : 1995 Procedure Summary Date: 11/09/24 Room / Location: Anesthesia Start: 0400 Anesthesia Stop: 1312 Procedure: LABOR ANALGESIA Diagnosis: Scheduled Providers: Responsible Provider: Rafael Frazier DO Anesthesia Type: epidural ASA Status: 2 Anesthesia Type: epidural Last Vitals Vitals Value Taken Time BP 121/63 11/09/24 1600 Temp 97.9 11/09/24 1638 Pulse 99 11/09/24 1604 Resp 16 11/09/24 1638 SpO2 97 % 11/09/24 1604 Vitals shown include unfiled device data. Daiana, Girl Eugene [[id number]] Baby Delivery: 11/09/2024 1312 Post Anesthesia Patient Status Patient Evaluation: bedside. Anticipated Disposition: inpatient floor planned admission. Neurological Status: aware and responsive. Pulmonary Status: breathing comfortably on room air Airway Control: returned to baseline unsupported. Cardiovascular Status: stable. Pain Management: clinically adequate Postoperative Hydration: acceptable. Intraoperative Events: no significant anesthesia events Post Operative Nausea/Vomiting Status: no significant post operative nausea or vomiting Recommendation: continue current plan of care. 97.9 Anesthesia Observations No Documentation SIGNATURE: Katy Summers APRN.CRNA PATIENT NAME: Eugene Ahmadi DATE: November 09, 2024 TIME: 4:38 PM CSN: [id number] [facility] ANES PRE-OPon 11-09-2024 ANES PRE-OP HNO ID: [id number] Author: RAFAEL FRAZIER DO Service: Anesthesiology Author Type: Anesthesiologist Type: Anesthesia Preprocedure Evaluation Filed: 11/11/2024 07:50 Note Text: OB ANESTHESIA PRE-PROCEDURE ASSESSMENT PATIENT NAME: Eugene Ahmadi : 1995 [facility] ANES BRIDGE BUILDER: Previous OB anesthetic: none No OB anesthesia considerations No prior risk factors reported No current obstetric problems/important considerations GERD: Denies GERD Relevant Problems No relevant active problems I - PHYSICAL EVALUATION AIRWAY Patient intubated: No. Tracheostomy tube not present Mallampati: II. TM distance: >3 FB. Neck ROM: full ROM without neurological symptoms. Mouth opening: adequate. Short neck: no. Thick neck: no DENTAL Dental findings: teeth intact. Additional exam findings: yes. CARDIOVASCULAR Normal cardiovascular observations. PULMONARY Normal pulmonary observations. II - ANESTHESIA PLAN ASA Score: 2 Anesthetic Plan: epidural The patient is not a current smoker. NPO Status: adequate Beta Arthur Monitoring Plan Monitoring plan: standard ASA. Post Procedure Analgesic Plan Postoperative analgesic plan: parenteral or oral opioids and multimodal analgesia. Informed Consent Anesthetic risks, benefits, alternatives, personnel and consent discussed: yes. Patient / Responsible Green Party agrees to proceed: yes Patient / Surrogate agrees to blood products: Yes Potential Anesthesia issues that may suggest increased risk of complications or contraindication to planned procedure: none. Hemoglobin (g/dL) Date Value 11/09/2024 13.1 Hematocrit (%) Date Value 11/09/2024 38.8 WBC (k/uL) Date Value 11/09/2024 15.71 Platelet Count (k/uL) Date Value 11/09/2024 191 [facility] CHART REVIEW: ACTIVE PROBLEM LIST Term (Hcc) PAST MEDICAL HISTORY Diagnosis Date Endometriosis Generalized anxiety disorder OCD (obsessive compulsive disorder) Psoriasis PAST SURGICAL HISTORY Procedure Laterality Date L'SCOPE DX W/WO BRUSHINGS/WASHINGS 2018 FAMILY HISTORY Problem Relation Age of Onset other (HTN) Mother other (HTN) Father Dementia Maternal Grandmother other (non hodgkins lymphoma) Maternal Grandfather other (CHF) Paternal Grandmother other (atrial fib) Paternal Grandmother other (espophageal cancer) Paternal Grandfather Social History Tobacco Use Smoking status: Never Smokeless tobacco: Never Vaping Use Vaping status: Never Used Substance Use Topics Alcohol use: Not Currently Drug use: Never busPIRone (BUSPAR) 10 mg tablet, Take 1 tablet by mouth two times a day., Disp: 180 tablet, Rfl: 1, 11/08/2024 Bedtime venlafaxine ER (EFFEXOR XR) 75 mg 24 hr capsule, Take 1 capsule by mouth once daily., Disp: 90 capsule, Rfl: 1, 11/08/2024 Bedtime ferrous sulfate (IRON) 325 mg (65 mg iron) tablet, Take 325 mg by mouth once daily., Disp: , Rfl: , 11/08/2024 prental multivitamin ( VITAMIN) 27 mg iron- 800 mcg tablet, Take 1 tablet by mouth once daily., Disp: , Rfl: , 11/08/2024 Bedtime cyclobenzaprine (FLEXERIL) 5 mg tablet, Take 1 tablet by mouth three times a day as needed., Disp: 30 tablet, Rfl: 0 nitrofurantoin monohydrate and macrocrystal (MACROBID) 100 mg capsule, Take 1 capsule by mouth two times a day., Disp: 14 capsule, Rfl: 0 roflumilast (ZORYVE) 0.3 % foam, Apply to the affected area once daily. Do not exceed 2 grams per day, Disp: 60 g, Rfl: 3 ketoconazole (NIZORAL) 2 % shampoo, wash the scalp every other wash, lathering and letting shampoo sit for 3 to 5 minutes before rinsing, Disp: 120 mL, Rfl: 12 mv,iron,cgd-IY-chfzj ry cmb.24 400 mcg tab, Take 1 tablet by mouth once daily., Disp: , Rfl: Inpatient medications reviewed in EPIC I have interviewed and examined the patient. I have reviewed the medical record and/or the pre-anesthesia evaluation, pertinent labs, and test results. This contains updated information obtained within 48 hours of Surgery/Procedure. SIGNATURE: Tiffanie Andrews APRN.CRNA PATIENT NAME: Eugene Ahmadi DATE: November 09, 2024 TIME: 4:19 AM : 1995 [facility] ANES PRE-OP HNO ID: [id number] Author: RAFAEL FRAZIER DO Service: Anesthesiology Author Type: Nurse Loan Coordinator Type: Anesthesia Preprocedure Evaluation Filed: 11/11/2024 07:52 Note Text: Attestation signed by Rafael Frazier DO at 11/11/2024 7:52 AM ..Staff Note I have reviewed pertinent medical records/tests regarding this patient. Agree with the anesthesia provider's assessment and plan. 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 Tracheostomy tube not present Mallampati: II. TM distance: >3 FB. Neck ROM: full ROM without neurological symptoms. Mouth opening: adequate. Short neck: no. Thick neck: no DENTAL Dental findings: teeth intact. Additional exam findings: yes. CARDIOVASCULAR Normal cardiovascular observations. PULMONARY Normal pulmonary observations. II - ANESTHESIA PLAN ASA Score: 2 Anesthetic Plan: epidural The patient is not a current smoker. NPO Status: adequate Beta Arthur Monitoring Plan Monitoring plan: standard ASA. Post Procedure Analgesic Plan Postoperative analgesic plan: parenteral or oral opioids and multimodal analgesia. Informed Consent Anesthetic risks, benefits, alternatives, personnel and consent discussed: yes. Patient / Responsible Green Party agrees to proceed: yes Patient / Surrogate agrees to blood products: Yes Potential Anesthesia issues that may suggest increased risk of complications or contraindication to planned procedure: none. Hemoglobin (g/dL) Date Value 11/09/2024 13.1 Hematocrit (%) Date Value 11/09/2024 38.8 WBC (k/uL) Date Value 11/09/2024 15.71 Platelet Count (k/uL) Date Value 11/09/2024 191 [facility] CHART REVIEW: ACTIVE PROBLEM LIST Term (Hcc) PAST MEDICAL HISTORY Diagnosis Date Endometriosis Generalized anxiety disorder OCD (obsessive compulsive disorder) Psoriasis PAST SURGICAL HISTORY Procedure Laterality Date L'SCOPE DX W/WO BRUSHINGS/WASHINGS 2018 FAMILY HISTORY Problem Relation Age of Onset other (HTN) Mother other (HTN) Father Dementia Maternal Grandmother other (non hodgkins lymphoma) Maternal Grandfather other (CHF) Paternal Grandmother other (atrial fib) Paternal Grandmother other (espophageal cancer) Paternal Grandfather Social History Tobacco Use Smoking status: Never Smokeless tobacco: Never Vaping Use Vaping status: Never Used Substance Use Topics Alcohol use: Not Currently Drug use: Never busPIRone (BUSPAR) 10 mg tablet, Take 1 tablet by mouth two times a day., Disp: 180 tablet, Rfl: 1, 11/08/2024 Bedtime venlafaxine ER (EFFEXOR XR) 75 mg 24 hr capsule, Take 1 capsule by mouth once daily., Disp: 90 capsule, Rfl: 1, 11/08/2024 Bedtime ferrous sulfate (IRON) 325 mg (65 mg iron) tablet, Take 325 mg by mouth once daily., Disp: , Rfl: , 11/08/2024 prental multivitamin ( VITAMIN) 27 mg iron- 800 mcg tablet, Take 1 tablet by mouth once daily., Disp: , Rfl: , 11/08/2024 Bedtime cyclobenzaprine (FLEXERIL) 5 mg tablet, Take 1 tablet by mouth three times a day as needed., Disp: 30 tablet, Rfl: 0 nitrofurantoin monohydrate and macrocrystal (MACROBID) 100 mg capsule, Take 1 capsule by mouth two times a day., Disp: 14 capsule, Rfl: 0 roflumilast (ZORYVE) 0.3 % foam, Apply to the affected area once daily. Do not exceed 2 grams per day, Disp: 60 g, Rfl: 3 ketoconazole (NIZORAL) 2 % shampoo, wash the scalp every other wash, lathering and letting shampoo sit for 3 to 5 minutes before rinsing, Disp: 120 mL, Rfl: 12 mv,iron,jun-KB-zuskf ry cmb.24 400 mcg tab, Take 1 tablet by mouth once daily., Disp: , Rfl: Inpatient medications reviewed in [facility] I have interviewed and examined the patient. I have reviewed the medical record and/or the pre-anesthesia evaluation, pertinent labs, and test results. This contains updated information obtained within 48 hours of Surgery/Procedure. SIGNATURE: Tiffanie Andrews APRN.TARIFF COMPILING CLERK PATIENT NAME: Eugene Ahmadi DATE: November 09, 2024 TIME: 4:19 AM : 1995 Normal [facility] CBC W Auto Differential pane l (Bld)on 11-09-2024 Basophils (Bld) [#/Vol] 0.03 10*3/uL Normal <0.11 [facility] Comment on above: Order Comment: Speci men Type: BLOOD SPECIMEN Ordering Facility: [facility] Address: [facility] [place] [address] , [place] [address] Performed By: #### 3 016-3, 2731-8, 3024-7, 3051-0, 64818-4 #### [facility] CLIA [id number] [address] [place], [place] [address] [place] Basophils/100 WBC (Bld) 0.2 % Normal [facility] Comment on above: Order Comment: Speci jeffry Type: BLOOD SPECIMEN Ordering Facility: [facility] Address: [address] [place] [address] Performed By: #### 3 016-3, 2731-8, 3024-7, 3051-0, 59869-0 #### [facility] CLIA [id number] [address] [place] [address] [place] Differential cell count method Nom (Bld) Auto Normal [facility] Comment on above: Order Comment: Wilneri jeffry Type: BLOOD SPECIMEN Ordering Facility: [facility] Address: [facility] [place] [address] Performed By: #### 3 016-3, 2731-8, 3024-7, 3051-0, 21986-1 #### [facility] CLIA [id number] [address] [place] [address] [place] Eosinophils (Bld) [#/Vol] 0.11 10*3/uL Normal <0.46 [facility] Comment on above: Order Comment: Speci jeffry Type: BLOOD SPECIMEN Ordering Facility: [facility] Address: [facility] [place] [address] Performed By: #### 3 016-3, 2731-8, 3024-7, 3051-0, 43750-2 #### [facility] CLIA [id number] [address] [place] [address] [place] Eosinophils/100 WBC (Bld) 0.7 % Normal [facility] Comment on above: Order Comment: Wilneri jeffry Type: BLOOD SPECIMEN Ordering Facility: [facility] Address: [facility] [place] [address] Performed By: #### 3 016-3, 2731-8, 3024-7, 3051-0, 09588-3 #### [facility] CLIA [id number] [address] [place], [place] [address] [place] Erythrocyte distribution width (RBC) [Ratio] 12.5 % Normal 11.5-15.0 [facility] Comment on above: Order Comment: Speci men Type: BLOOD SPECIMEN Ordering Facility: [facility] Address: [address], [place] [id number] Performed By: #### 3 016-3, 273-8, 4-7, 3051-0, 88782-0 #### [facility] CLIA [id number] [address] [place] [address] [place] Hematocrit (Bld) [Volume fraction] 38.8 % Normal 36.0-46.0 [facility] Comment on above: Order Comment: Speci men Type: BLOOD SPECIMEN Ordering Facility: [facility] Address: [address] [place], [place] [id number] Performed By: #### 3 016-3, 273-8, 4-7, 3051-0, 81259-4 #### [facility] CLIA [id number] [address] [place] [address] [place] Hemoglobin (Bld) [Mass/Vol] 13.1 g/dL Normal 11.5-15.5 [facility] Comment on above: Order Comment: Speci men Type: BLOOD SPECIMEN Ordering Facility: [facility] Address: [address], [place] [address] Performed By: #### 3 016-3, 273-8, 3024-7, 3051-0, 36247-1 #### [facility] CLIA [id number] [address] [place] [address] [place] Immature granulocytes (Bld) [#/Vol] 0.18 10*3/uL High <0.10 [facility] Comment on above: Order Comment: Speci men Type: BLOOD SPECIMEN Ordering Facility: [facility] Address: [address] [place] [address] Performed By: #### 3 016-3, 2731-8, 3024-7, 3051-0, 04384-5 #### [facility] CLIA [id number] [address] [place] [address] [place] Immature granulocytes/100 WBC (Bld) 1.1 % Normal [facility] Comment on above: Order Comment: Speci men Type: BLOOD SPECIMEN Ordering Facility: [facility] Address: [address] [place] [address] Performed By: #### 3 016-3, 273-8, 3024-7, 3051-0, 68562-7 #### [facility] CLIA [id number] [address] [place] [address] [place] Lymphocytes (Bld) [#/Vol] 2.24 10*3/uL Normal 1.00-4.00 [facility] Comment on above: Order Comment: Speci men Type: BLOOD SPECIMEN Ordering Facility: [facility] Address: [address] [place] [address] Performed By: #### 3 016-3, 2731-8, 3024-7, 3051-0, 31429-0 #### [facility] CLIA [id number] [address] [place] [address] [place] Lymphocytes/100 WBC (Bld) 14.3 % Normal [facility] Comment on above: Order Comment: Speci men Type: BLOOD SPECIMEN Ordering Facility: [facility] Address: [address] [place] [address] Performed By: #### 3 016-3, 2731-8, 3024-7, 3051-0, 37142-2 #### [facility] CLIA [id number] [address] [place] [address] [place] MCH (RBC) [Entitic mass] 29.6 pg Normal 26.0-34.0 [facility] Comment on above: Order Comment: Specleda teran Type: BLOOD SPECIMEN Ordering Facility: [facility] Address: [address] [place] [address] Performed By: #### 3 016-3, 273-8, 3024-7, 3051-0, 96254-5 #### [facility] CLIA [id number] [address] [place] [address] MCHC (RBC) [Mass/Vol] 33.8 g/dL Normal 30.5-36.0 [facility] Comment on above: Order Comment: Selin teran Type: BLOOD SPECIMEN Ordering Facility: [facility] Address: [facility] [address] [place] [address] Performed By: #### 3 016-3, 273-8, 4-7, 3051-0, 50647-2 #### [facility] CLIA [id number] [address] [place] [address] [facility] MCV (RBC) [Entitic vol] 87.8 fL Normal 80.0-100.0 [facility] Comment on above: Order Comment: Selin teran Type: BLOOD SPECIMEN Ordering Facility: [facility] Address: [facility] [place] [address] Performed By: #### 3 016-3, 273-8, 4-7, 3051-0, 65253-4 #### [facility] CLIA [id number] [address] [place] [address] [place] Monocytes (Bld) [#/Vol] 0.82 10*3/uL Normal <0.87 [facility] Comment on above: Order Comment: Selin teran Type: BLOOD SPECIMEN Ordering Facility: [facility] Address: [facility] [place] [address] Performed By: #### 3 016-3, 273-8, 4-7, 3051-0, 31809-9 #### [facility] CLIA [id number] [address] [place], [place] [address] [place] Monocytes/100 WBC (Bld) 5.2 % Normal [facility] Comment on above: Order Comment: Speci men Type: BLOOD SPECIMEN Ordering Facility: [facility] Address: [address] [place] [address] Performed By: #### 3 016-3, 2731-8, 3024-7, 3051-0, 23086-6 #### [facility] CLIA [id number] [address] [place] [address] [place] Neutrophils (Bld) [#/Vol] 12.33 10*3/uL High 1.45-7.50 [facility] Comment on above: Order Comment: Speci men Type: BLOOD SPECIMEN Ordering Facility: [facility] Address: [address] [place] [address] Performed By: #### 3 016-3, 2731-8, 3024-7, 3051-0, 23158-8 #### [facility] CLIA [id number] [address] [place] [address] [place] Neutrophils/100 WBC (Bld) 78.5 % Normal [facility] Comment on above: Order Comment: Speci men Type: BLOOD SPECIMEN Ordering Facility: [facility] Address: [address], [place] [address] Performed By: #### 3 016-3, 2731-8, 3024-7, 3051-0, 61303-3 #### [facility] CLIA [id number] [address] [place] [address] [place] Nucleated RBC (Bld) [#/Vol] 10*3/uL Normal <0.01 [facility] Comment on above: Order Comment: Speci men Type: BLOOD SPECIMEN Ordering Facility: [facility] Address: [address] [place] [id number] Performed By: #### 3 016-3, 2731-8, 3024-7, 3051-0, 45068-8 #### [facility] CLIA [id number] [address] [place], [place] [address] [place] Nucleated RBC/100 WBC (Bld) [Ratio] 0.0 /100 WBC Normal [facility] Comment on above: Order Comment: Speci men Type: BLOOD SPECIMEN Ordering Facility: [facility] Address: [address] [place] [address] Performed By: #### 3 016-3, 2731-8, 3024-7, 3051-0, 23292-0 #### [facility] CLIA [id number] [address] [place] [address] [place] Platelet mean volume (Bld) [Entitic vol] 9.4 fL Normal 9.0-12.7 [facility] Comment on above: Order Comment: Speci men Type: BLOOD SPECIMEN Ordering Facility: [facility] Address: [facility] [address] [place] [address] Performed By: #### 3 016-3, 2731-8, 3024-7, 3051-0, 96695-8 #### [facility] CLIA [id number] [address] [place] [address] [place] Platelets (Bld) [#/Vol] 191 10*3/uL Normal 150-400 [facility] Comment on above: Order Comment: Speci men Type: BLOOD SPECIMEN Ordering Facility: [facility] Address: [facility] [address] [place] [address] Performed By: #### 3 016-3, 2731-8, 3024-7, 3051-0, 61102-7 #### [facility] CLIA [id number] [address] [place] [address] [place] RBC (Bld) [#/Vol] 4.42 10*6/uL Normal 3.90-5.20 [facility] Comment on above: Order Comment: Speci men Type: BLOOD SPECIMEN Ordering Facility: [facility] Address: [address], [place] [address] Performed By: #### 3 016-3, 2731-8, 3024-7, 3051-0, 23756-9 #### [facility] CLIA [id number] [address] [place] [address] [facility] [place] WBC (Bld) [#/Vol] 15.71 10*3/uL High 3.70-11.00 [facility] Comment on above: Order Comment: Speci men Type: BLOOD SPECIMEN Ordering Facility: [facility] Address: [address], [place] [address] Performed By: #### 3 016-3, 2731-8, 3024-7, 3051-0, 40788-5 #### [facility] CLIA [id number] [address] [place], [place] [address] [facility] ED NOTEon 11-09-2024 ED NOTE HNO ID: [id number] Author: JENNIFER ROMERO DO Service: Gynecology Author Type: Physician Type: ED Notes Filed: 11/09/2024 03:28 Note Text: OBSTETRICS TRIAGE PROGRESS NOTE SERVICE DATE: November 09, 2024 SERVICE TIME: 0315 Subjective Patient's stated reason for arrival: possible labor CHIEF COMPLAINT: Labor HISTORY OF THE PRESENT ILLNESS: The patient is a 28 year old female, , who is at 36w6d with an WANDA of 12/01/2024, by Patient Reported dating method. Patient is here complaining of q2 min contractions x3 hours. Good movement. Denies vaginal bleeding., Denies leaking of fluid. . REVIEW OF SYSTEMS: The remainder of the review of systems is negative. Objective LAST VITALS: Pulse BP Resp O2 Sat Temp Pain 75 125/76 22 97 % 36.4 ?C (97.6 ?F) 9 HT/WT/BMI: Height Weight BMI 165.1 cm (5' 5) 77.1 kg (170 lb) 28.29 SENSITIVE EXAMINATION CONSENT: Participation of a fellow, resident, medical student, or advanced practice provider student in performing the sensitive examination was discussed with the patient or authorized telephone services sales representative. The patient or authorized telephone services sales representative has agreed to proceed with the sensitive examination. PHYSICAL EXAM: General: WD, WN Heart: RR, S1, S2 Lungs: clear to auscultation Abdomen: soft, nontender, no masses Uterus: soft, NT Extremities: 1+ edema Cervical Exam: 4cm/ 80%/-2/vtx/soft/ante rior MONITORING/ASSESSMEN T: NST with text intrepretation: MONITORING/ASSESSMEN T: Baseline Rate: 135 bpm (11/09/24 0320 : Nati Fernandez, RN) Decelerations: None (11/09/24 0320 : Nati Fernandez, RN) Category I LABS Diagnostic tests reviewed for today's visit: Most recent labs 28 year old EGA:36w6d. Uterine contractions - admit and GBS RX Assessment AND Plan Term (HCC) SIGNATURE: Jennifer Romero DO PATIENT NAME: Eugene Ahmadi DATE: November 09, 2024 TIME: 3:25 AM [facility] HISTORY PHYSICALon HISTORY PHYSICAL HNO ID: [id number] Author: JENNIFER ROMERO DO Service: Gynecology Author Type: Physician Type: H&P Filed: 11/09/2024 03:20 Note Text: OBSTETRICS Emergency Note SERVICE DATE: November 09, 2024 SERVICE TIME: 314 Subjective Patient's stated reason for arrival: CHIEF COMPLAINT: Labor HISTORY OF THE PRESENT ILLNESS: The patient is a 28 year old female, , who is at 36w6d with an WANDA of 12/01/2024, by Patient Reported dating method. Patient is here complaining of q2 min contractions x 3 hours. Good movement. Denies vaginal bleeding.. HISTORY REVIEW PAST MEDICAL HISTORY Diagnosis Date Endometriosis Generalized anxiety disorder OCD (obsessive compulsive disorder) Psoriasis PAST SURGICAL HISTORY Procedure Laterality Date L'SCOPE DX W/WO BRUSHINGS/WASHINGS 2018 FAMILY HISTORY Problem Relation Age of Onset other (HTN) Mother other (HTN) Father Dementia Maternal Grandmother other (non hodgkins lymphoma) Maternal Grandfather other (CHF) Paternal Grandmother other (atrial fib) Paternal Grandmother other (espophageal cancer) Paternal Grandfather Social History Tobacco Use Smoking status: Never Smokeless tobacco: Never Vaping Use Vaping status: Never Used Substance Use Topics Alcohol use: Not Currently Drug use: Never Obstetric History T0 L0 SAB0 IAB0 Ectopic0 Multiple0 Live Births0 Name of Baby 1: Not recorded Date: Not recorded GA: Not recorded Type: Not recorded Apgar1: Not recorded Apgar5: Not recorded Living: Not recorded There are no active non-hospital problems to display for this patient. ALLERGIES No Known Allergies Prior to Admission Medications Prescriptions Last Dose Informant Patient Reported? Taking? busPIRone (BUSPAR) 10 mg tablet No No Sig: Take 1 tablet by mouth two times a day. cyclobenzaprine (FLEXERIL) 5 mg tablet No No Sig: Take 1 tablet by mouth three times a day as needed. ferrous sulfate (IRON) 325 mg (65 mg iron) tablet Yes No Sig: Take 325 mg by mouth once daily. ketoconazole (NIZORAL) 2 % shampoo No No Sig: wash the scalp every other wash, lathering and letting shampoo sit for 3 to 5 minutes before rinsing mv,iron,nde-YA-yfbtf ry cmb.24 400 mcg tab No No Sig: Take 1 tablet by mouth once daily. nitrofurantoin monohydrate and macrocrystal (MACROBID) 100 mg capsule No No Sig: Take 1 capsule by mouth two times a day. prental multivitamin ( VITAMIN) 27 mg iron- 800 mcg tablet No No Sig: Take 1 tablet by mouth once daily. roflumilast (ZORYVE) 0.3 % foam No No Sig: Apply to the affected area once daily. Do not exceed 2 grams per day venlafaxine ER (EFFEXOR XR) 75 mg 24 hr capsule No No Sig: Take 1 capsule by mouth once daily. Facility-Administere d Medications: None REVIEW OF SYSTEMS: The remainder of the review of systems is negative. Objective LAST VITALS: Pulse BP Resp O2 Sat Temp Pain HT/WT/BMI: Height Weight BMI SENSITIVE EXAMINATION CONSENT: Participation of a fellow, resident, medical student, or advanced practice provider student in performing the sensitive examination was discussed with the patient or authorized telephone services sales representative. The patient or authorized telephone services sales representative has agreed to proceed with the sensitive examination. PHYSICAL EXAM: General: WD, WN HEENT: NC/AT, sclera white, pupils equal, no thyromegaly Lungs: clear, Heart: RR, S1, S2 Abdomen: soft, nontender, no masses Uterus: soft, NT Extremities: 1+ edema DTRs: 2+ FHT: bpm St Spec Exam: (not done) CERVICAL EXAM: Dilation: 4cm Station: -2 Effacement: 80% Position: anterior Presentation: vtx Pelvimetry: Pelvimetry clinically assessed as adequate MONITORING/ASSESSMEN T: Baseline: Variability: Accelerations: Decelerations: Contractions: Frequency: NST Interpretation: reactive FHR Category: 1 EFW: ULTRASOUND: US findings: N/A LABS Diagnostic tests reviewed for today's visit: Most recent labs Maternal Results (In Last 9 Months): Hemoglobin (g/dL) Date/Time Value 11/05/2024 1310 12.7 08/31/2024 1530 12.7 08/12/2024 1053 14.1 Hematocrit (%) Date/Time Value 11/05/2024 1310 37.7 08/31/2024 1530 38.2 08/12/2024 1053 42.3 Platelet Count (k/uL) Date/Time Value 11/05/2024 1310 166 08/31/2024 1530 194 08/12/2024 1053 208 ABO (no units) Date/Time Value 04/30/2024 1222 O Rh(D) (no units) Date/Time Value 04/30/2024 1222 Positive Grp B Streptococcus DNA, Routine (no units) Date/Time Value 11/04/2024 1632 Detected (A) HBsAg (no units) Date/Time Value 04/30/2024 1222 Nonreactive Hep B Surface Ab Quant (mIU/mL) Date/Time Value 04/30/2024 1222 <3.10 Hep C Antibody IA (no units) Date/Time Value 04/30/2024 1222 Nonreactive HIV 12 Combo (Ag/Ab) (no units) Date/Time Value 04/30/2024 1222 Nonreactive Neisseria gonorrhoeae RNA (no units) Date/Time Value 04/24/2024 1500 Negative for Neisseria rajesh (more content not included)... [facility] LD NOTEon 11-09-2024 LD NOTE HNO ID: [id number] Author: STEPH GRAJEDA MD Service: Gynecology Author Type: Physician Type: L&D Delivery Note Filed: 11/09/2024 13:57 Note Text: OBSTETRICS DELIVERY SUMMARY - VAGINAL DELIVERY Gestational Age at Delivery: 36w6d Service Date: 11/09/24 Service Time: 1:12 PM Labor Events Rupture Date: 11/09/2024 Rupture Time: 11:56 AM Total Time from ROM to Delivery: 1h 16m Rupture Type: SROM Fluid Color: Meconium Fluid Odor: No Odor Induction: No Augmentation: None Reason for Augmentation: --- Bloxsom, Girl [facility] [[id number]] Episiotomy/Laceratio n: Episiotomy: None Lacerations: 2nd, Labial Perineal Repair Completed: Yes Sutures Used: 3-0 Polyglactin 910 Labial Lacerations: Bilateral Labial Repair Completed: Yes Sutures Used: 3-0 Polyglactin 910 Date and Time of : Date of : 11/09/24 Time of : 1312 Delivery Information: Primary Reason for Delivery : Labor Delivery type: Vaginal, Spontaneous Intrapartum Complications: None Delivery between 22w0d - 36w6d?: Yes What was the indication for ?: Spontaneous ( labor, PPROM) Has the patient completed their course of steroids?: None Was the course Initiated?: No Shoulder Dystocia Present: No Vacuum Used: No Forceps Used: No Presentation AND Position Presentation: Vertex Position: ARLEY Cord: Complications: None Delayed Cord Clampin-60 sec Placenta: Delivered: 11/09/2024 1:19 PM Removal: Spontaneous Appearance: Intact Anesthesia: Method: 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 Intrapartum AND : 11/09/2499 - 11/09/24 135 Delivery Admission: 11/09/2499 - 11/09/24 135 Intrapartum AND Delivery Admission None A digital sweep of the vaginal canal was performed by Steph Grajeda MD and it was ascertained that no instruments or other foreign bodies are retained within the cavity. Sponge, lap, and needle counts were correct times two. Mother and baby are stable and bonding and skin to skin. Baby is in mother's arms. Expected post-delivery care and anticipated transfer reviewed. Plan of care discussed with: Patient and RN. SIGNATURE: Steph Grajeda MD PATIENT NAME: Eugene Ahmadi DATE: November 09, 2024 TIME: 1:57 PM [facility] TYPE + SCREEN PRENATALon ABO O Normal [facility] Comment on above: Order Comment: Selin teran Type: BLOOD SPECIMEN Ordering Facility: [facility] Address: [address] [place] [address] Performed By: #### 3 016-3, 2731-8, 3024-7, 3051-0, 05864-0 #### [facility] CLIA [id number] [address] [place] [address] [place] Rh Nom (Bld) Positive Normal [facility] Comment on above: Order Comment: Selin teran Type: BLOOD SPECIMEN Ordering Facility: [facility] Address: [facility] [address] [place] [id number] Performed By: #### 3 016-3, 2731-8, 3024-7, 3051-0, 50732-8 #### [facility] CLIA [id number] [address] [place] [address] TYPE AND SCREEN EXPIRATION 11/12/2024 23:59 Normal [facility] Comment on above: Order Comment: Selin teran Type: BLOOD SPECIMEN Ordering Facility: [facility] Address: [facility] [address] [place] [id number] Performed By: #### 3 016-3, 2731-8, 3024-7, 3051-0, 62924-4 #### [facility] CLIA [id number] [address] [place] [address] Urinalysis complete panel (U )on 11-09-2024 Bacteria LM.HPF (Urine sed) [#/Area] None Seen Normal None Seen [facility] Comment on above: Order Comment: Speci men Type: BLOOD SPECIMEN Ordering Facility: [facility] Address: [address] [place] [address] Performed By: #### 3 016-3, 273-8, 3024-7, 3051-0, 69392-4 #### [facility] CLIA [id number] [address] [place] [address] [place] Bilirubin Ql (U) Negative Normal Negative [facility] Comment on above: Order Comment: Speci men Type: BLOOD SPECIMEN Ordering Facility: [facility] Address: [address] [facility] [place] [address] Performed By: #### 3 016-3, 273-8, 3024-7, 3051-0, 67888-4 #### [facility] CLIA [id number] [address] [place] [address] [place] Clarity (Unsp spec) Hazy Abnormal Clear [facility] Comment on above: Order Comment: Speci men Type: BLOOD SPECIMEN Ordering Facility: [facility] Address: [address] [place] [address] Performed By: #### 3 016-3, 273-8, 4-7, 3051-0, 61185-5 #### [facility] CLIA [id number] [address] [place] [address] [place] Color (U) Yellow Normal Yellow [facility] Comment on above: Order Comment: Speci men Type: BLOOD SPECIMEN Ordering Facility: [facility] Address: [address] [place] [address] Performed By: #### 3 016-3, 2731-8, 3024-7, 3051-0, 32919-3 #### [facility] CLIA [id number] [address] [place] [address] [place] Epithelial cells LM.HPF (Urine sed) [#/Area] Few Normal [facility] Comment on above: Order Comment: Speci men Type: BLOOD SPECIMEN Ordering Facility: [facility] Address: [address], [place] [address] Performed By: #### 3 016-3, 2731-8, 3024-7, 3051-0, 15957-9 #### [facility] CLIA [id number] [address] [place] [address] [place] Glucose Test strip (U) [Mass/Vol] Negative Normal Negative [facility] Comment on above: Order Comment: Speci men Type: BLOOD SPECIMEN Ordering Facility: [facility] Address: [address] [place] [place] [id number] Performed By: #### 3 016-3, 2731-8, 3024-7, 3051-0, 70818-5 #### [facility] CLIA [id number] [address] [place] [address] [place] Hemoglobin Ql (U) 2+ Abnormal Negative [facility] Comment on above: Order Comment: Speci men Type: BLOOD SPECIMEN Ordering Facility: [facility] Address: [address] [place] [place] [id number] Performed By: #### 3 016-3, 2731-8, 3024-7, 3051-0, 71312-3 #### [facility] CLIA [id number] [address] [place] [address] [place] Ketones Ql (U) Negative Normal Negative [facility] Comment on above: Order Comment: Speci men Type: BLOOD SPECIMEN Ordering Facility: [facility] Address: [address] [place], [place] [id number] Performed By: #### 3 016-3, 2731-8, 3024-7, 3051-0, 40791-6 #### [facility] CLIA [id number] [address] [place] [address] Leukocyte esterase Test strip Ql (U) Negative Normal Negative [facility] Comment on above: Order Comment: Speci men Type: BLOOD SPECIMEN Ordering Facility: [facility] Address: [address], [place] [address] Performed By: #### 3 016-3, 2731-8, 3024-7, 3051-0, 58177-6 #### [facility] CLIA [id number] [address] [place], [place] [address] [place] Nitrite Ql (U) Negative Normal Negative [facility] Comment on above: Order Comment: Speci men Type: BLOOD SPECIMEN Ordering Facility: [facility] Address: [address] [place], [place] [address] Performed By: #### 3 016-3, 2731-8, 3024-7, 3051-0, 26778-9 #### [facility] CLIA [id number] [address] [place] [address] [place] pH (U) 7.0 [pH] Normal 5.0-8.0 [facility] Comment on above: Order Comment: Speci men Type: BLOOD SPECIMEN Ordering Facility: [facility] Address: [address] [place] [address] Performed By: #### 3 016-3, 2731-8, 3024-7, 3051-0, 29981-9 #### [facility] CLIA [id number] [address] [place] [address] [place] Protein (U) [Mass/Vol] Negative Normal Negative [facility] Comment on above: Order Comment: Speci men Type: BLOOD SPECIMEN Ordering Facility: [facility] Address: [address], [place] [address] Performed By: #### 3 016-3, 2731-8, 3024-7, 3051-0, 16646-5 #### [facility] CLIA [id number] [address] [place] [address] [place] RBC LM.HPF (Urine sed) [#/Area] 11-25 /HPF Abnormal 0-3 /HPF [facility] Comment on above: Order Comment: Speci men Type: BLOOD SPECIMEN Ordering Facility: [facility] Address: [address], [place] [address] Performed By: #### 3 016-3, 2731-8, 3024-7, 3051-0, 68766-0 #### [facility] CLIA [id number] [address] [place], [place] [address] [place] Specific gravity (U) [Rel density] 1.016 Normal 1.005-1.030 [facility] Comment on above: Order Comment: Speci men Type: BLOOD SPECIMEN Ordering Facility: [facility] Address: [address], [place] [address] Performed By: #### 3 016-3, 2731-8, 3024-7, 305-0, 53904-3 #### [facility] CLIA [id number] [address] [place] [address] [place] Urobilinogen Ql (U) Negative Normal Negative [facility] Comment on above: Order Comment: Speci men Type: BLOOD SPECIMEN Ordering Facility: [facility] Address: [address], [place] [address] Performed By: #### 3 016-3, 2731-8, 3024-7, 3051-0, 34208-9 #### [facility] CLIA [id number] [address] [place] [address] [place] WBC LM.HPF (Urine sed) [#/Area] 0-5 /HPF Normal 0-5 /HPF [facility] Comment on above: Order Comment: Speci men Type: BLOOD SPECIMEN Ordering Facility: [facility] Address: [address] [place], [place] [id number] Performed By: #### 3 016-3, 2731-8, 3024-7, 305-0, 65805-5 #### [facility] CLIA [id number] [address] [place] [address] [place] CBC panel Auto (Bld)on 11-05 Erythrocyte distribution width (RBC) [Ratio] 12.7 % Normal 11.5-15.0 [facility] Comment on above: Order Comment: Speci jeffry Type: BLOOD SPECIMEN Ordering Facility: [facility] Address: [place] [address] Performed By: #### 3 016-3, 2731-8, 3024-7, 3051-0, 42555-6 #### [facility] CLIA [id number] [address] [place] [address] [place] Hematocrit (Bld) [Volume fraction] 37.7 % Normal 36.0-46.0 [facility] Comment on above: Order Comment: Wilneri jeffry Type: BLOOD SPECIMEN Ordering Facility: [facility] Address: [facility] [place] [address] Performed By: #### 3 016-3, 2731-8, 3024-7, 3051-0, 26524-3 #### [facility] CLIA [id number] [address] [place] [address] [place] Hemoglobin (Bld) [Mass/Vol] 12.7 g/dL Normal 11.5-15.5 [facility] Comment on above: Order Comment: Selin teran Type: BLOOD SPECIMEN Ordering Facility: [facility] Address: [place] [address] Performed By: #### 3 016-3, 2731-8, 3024-7, 3051-0, 57703-2 #### [facility] CLIA [id number] [address] [place] [address] [place] MCH (RBC) [Entitic mass] 29.8 pg Normal 26.0-34.0 [facility] Comment on above: Order Comment: Wilneri jeffry Type: BLOOD SPECIMEN Ordering Facility: [facility] Address: [place] [address] Performed By: #### 3 016-3, 2731-8, 3024-7, 3051-0, 54913-9 #### [facility] CLIA [id number] [address] [place] [address] [place] MCHC (RBC) [Mass/Vol] 33.7 g/dL Normal 30.5-36.0 [facility] Comment on above: Order Comment: Speci men Type: BLOOD SPECIMEN Ordering Facility: [facility] Address: [address], [place] [address] Performed By: #### 3 016-3, 2731-8, 3024-7, 3051-0, 68914-5 #### [facility] CLIA [id number] [address] [place], [place] [address] [place] MCV (RBC) [Entitic vol] 88.5 fL Normal 80.0-100.0 [facility] Comment on above: Order Comment: Speci men Type: BLOOD SPECIMEN Ordering Facility: [facility] Address: [address] [place] [address] Performed By: #### 3 016-3, 2731-8, 3024-7, 3051-0, 07462-9 #### [facility] CLIA [id number] [address] [place] [address] [place] Nucleated RBC (Bld) [#/Vol] 10*3/uL Normal <0.01 [facility] Comment on above: Order Comment: Speci men Type: BLOOD SPECIMEN Ordering Facility: [facility] Address: [address], [place] [address] Performed By: #### 3 016-3, 2731-8, 3024-7, 3051-0, 28685-1 #### [facility] CLIA [id number] [address] [place] [address] [place] Platelet mean volume (Bld) [Entitic vol] 9.7 fL Normal 9.0-12.7 [facility] Comment on above: Order Comment: Speci men Type: BLOOD SPECIMEN Ordering Facility: [facility] Address: [address] [place] [address] Performed By: #### 3 016-3, 2731-8, 3024-7, 3051-0, 35769-8 #### [facility] CLIA [id number] [address] [place], [place] [address] [facility] Platelets (Bld) [#/Vol] 166 10*3/uL Normal 150-400 [facility] Comment on above: Order Comment: Speci men Type: BLOOD SPECIMEN Ordering Facility: [facility] Address: [address] [place], [place] [id number] Performed By: #### 3 016-3, 2731-8, 3024-7, 3051-0, 46025-5 #### [facility] CLIA [id number] [address] [place] [address] RBC (Bld) [#/Vol] 4.26 10*6/uL Normal 3.90-5.20 [facility] Comment on above: Order Comment: Speci men Type: BLOOD SPECIMEN Ordering Facility: [facility] Address: [address] [place], [place] [id number] Performed By: #### 3 016-3, 2731-8, 3024-7, 3051-0, 56410-3 #### [facility] CLIA [id number] [address] [place] [address] [facility] WBC (Bld) [#/Vol] 11.29 10*3/uL High 3.70-11.00 [facility] Comment on above: Order Comment: Speci men Type: BLOOD SPECIMEN Ordering Facility: [facility] Address: [address], [place] [address] Performed By: #### 3 016-3, 2731-8, 3024-7, 3051-0, 14650-8 #### [facility] CLIA [id number] [address] [place] [address] [facility] ROUTINE, GROUP B ST REPTOCOCCUS BY PCRon 11-04-2024 ROUTINE, GROUP B STREPTOCOCCUS BY PCR Detected Abnormal [facility] Comment on above: Performed By: #### 3 016-3, 2731-8, 3024-7, 3051-0, 16204-1 #### [facility] CLIA [id number] [address] [place] [place] [id number] [place] CNOVon 10-29-2024 CNOV Office Visit (FAMPWS) EUGENE AHMADI ([id number]) 1995 [facility] Date Time Provider Department 10/29/24 7:00 PM [facility] During your visit today, we recorded the following information about you: Pulse Blood pressure Weight 105/minute 122/73 77 kg Referring Provider: SELF [200] Allergies As of Date: 10/29/2024 (No Known Allergies) Date Reviewed: 10/29/2024 Reviewed by: Dawna Buitrago MA - Fully Assessed Reason for Visit: Follow Up [171] Primary Visit Diagnosis:Need for vaccination [Z23] Order(s):TDAP VACCINE, AGE 7+ YR (ADACEL, BOOSTRIX) [29216ICG] Order #: [id number] Prescriptions as of 10/29/2024 - busPIRone (BUSPAR) 10 mg tablet Take 1 tablet by mouth two times a day. - venlafaxine ER (EFFEXOR XR) 75 mg 24 hr capsule Take 1 capsule by mouth once daily. - cyclobenzaprine (FLEXERIL) 5 mg tablet Take 1 tablet by mouth three times a day as needed. - ferrous sulfate (IRON) 325 mg (65 mg iron) tablet Take 325 mg by mouth once daily. - nitrofurantoin monohydrate and macrocrystal (MACROBID) 100 mg capsule Take 1 capsule by mouth two times a day. - roflumilast (ZORYVE) 0.3 % foam Apply to the affected area once daily. Do not exceed 2 grams per day - ketoconazole (NIZORAL) 2 % shampoo wash the scalp every other wash, lathering and letting shampoo sit for 3 to 5 minutes before rinsing - prental multivitamin ( VITAMIN) 27 mg iron- 800 mcg tablet Take 1 tablet by mouth once daily. - mv,iron,hyf-ZT-zirou ry cmb.24 400 mcg tab Take 1 tablet by mouth once daily. Problem List As Of Date: 10/29/2024 (None) Encounter Status:Closed by TAMANNA ALCALA on 10/29/24 [facility] Annie [facility] EUGENE AHMADI ([id number]) 1995 [facility] Date Time Provider Department 09/24/24 CARIDAD WHEELERFRANCESCO During your visit today, we recorded the following information about you: Susan Pereyra RN 09/24/2024 3:25 PM Signed Patient calling and stating that her former PCP office which is closing is going to be faxing over her medical records. Patient just wanting to give heads up. Susan Pereyra RN Allergies As of Date: 09/24/2024 (No Known Allergies) Date Reviewed: 08/31/2024 Reviewed by: Dominique Moses RN - Fully Assessed Reason for Visit: Faxed Documents [Other] Prescriptions as of 09/28/2024 - busPIRone (BUSPAR) 10 mg tablet Take 1 tablet by mouth two times a day. - venlafaxine ER (EFFEXOR XR) 75 mg 24 hr capsule Take 1 capsule by mouth once daily. - cyclobenzaprine (FLEXERIL) 5 mg tablet Take 1 tablet by mouth three times a day as needed. - ferrous sulfate (IRON) 325 mg (65 mg iron) tablet Take 325 mg by mouth once daily. - nitrofurantoin monohydrate and macrocrystal (MACROBID) 100 mg capsule Take 1 capsule by mouth two times a day. - roflumilast (ZORYVE) 0.3 % foam Apply to the affected area once daily. Do not exceed 2 grams per day - ketoconazole (NIZORAL) 2 % shampoo wash the scalp every other wash, lathering and letting shampoo sit for 3 to 5 minutes before rinsing - prental multivitamin ( VITAMIN) 27 mg iron- 800 mcg tablet Take 1 tablet by mouth once daily. - mv,iron,jhv-KV-rehya ry cmb.24 400 mcg tab Take 1 tablet by mouth once daily. Problem List As Of Date: 09/24/2024 (None) Encounter Status:Closed by SUSAN PEREYRA on 09/28/24 Normal [facility] GESTATIONAL GLUCOSE SCREEN, 1-HOUR, 50 GRAM, NON-FASTINGon 09-11-2024 Glucose [Mass/Vol] 100 mg/dL Normal <140 [facility] Comment on above: Order Comment: Selin teran Type: BLOOD SPECIMEN Ordering Facility: [facility] Address: [address], [place] [address] Result Comment: [facility] Congress of Obstetricians and Gynecologists (Mynor/Arlene) guidelines state a gestational diabetes mellitus positive screen is made, in women not previously diagnosed with overt diabetes, when the 1 hr plasma glucose level is equal to or above 140 mg/dL. The [facility] [employer] Manager and [facility] [place] recommends a 135 mg/dL cutoff. Performed By: #### 3 016-3, 2731-8, 3024-7, 3051-0, 95370-2 #### [facility] CLIA [id number] [address] [place] [address] [place] CBC panel Auto (Bld)on 08-31 Erythrocyte distribution width (RBC) [Ratio] 13.2 % Normal 11.5-15.0 [facility] Comment on above: Order Comment: Selin teran Type: BLOOD SPECIMEN Ordering Facility: [facility] Address: [address], [place] [id number] Performed By: #### 3 016-3, 2731-8, 3024-7, 3051-0, 30037-3 #### [facility] CLIA [id number] [address] [place], [place] [address] [facility] Hematocrit (Bld) [Volume fraction] 38.2 % Normal 36.0-46.0 [facility] Comment on above: Order Comment: Speci men Type: BLOOD SPECIMEN Ordering Facility: [facility] Address: [address] [place] [id number] Performed By: #### 3 016-3, 2731-8, 3024-7, 3051-0, 08133-7 #### [facility] CLIA [id number] [address] [place] [address] [place] Hemoglobin (Bld) [Mass/Vol] 12.7 g/dL Normal 11.5-15.5 [facility] Comment on above: Order Comment: Speci men Type: BLOOD SPECIMEN Ordering Facility: [facility] Address: [address] [address] Performed By: #### 3 016-3, 2731-8, 3024-7, 3051-0, 12407-4 #### [facility] CLIA [id number] [address] [place] [address] [place] MCH (RBC) [Entitic mass] 30.0 pg Normal 26.0-34.0 [facility] Comment on above: Order Comment: Speci men Type: BLOOD SPECIMEN Ordering Facility: [facility] Address: [address] [address] Performed By: #### 3 016-3, 2731-8, 3024-7, 3051-0, 18045-6 #### [facility] CLIA [id number] [address] [place] [address] [place] MCHC (RBC) [Mass/Vol] 33.2 g/dL Normal 30.5-36.0 [facility] Comment on above: Order Comment: Speci men Type: BLOOD SPECIMEN Ordering Facility: [facility] Address: [address], [place] [address] Performed By: #### 3 016-3, 2730-8, 3024-7, 3051-0, 75454-3 #### [facility] CLIA [id number] [address] [place], [place] [address] [place] MCV (RBC) [Entitic vol] 90.3 fL Normal 80.0-100.0 [facility] Comment on above: Order Comment: Speci men Type: BLOOD SPECIMEN Ordering Facility: [facility] Address: [address], [place] [address] Performed By: #### 3 016-3, 2730-8, 4-7, 3051-0, 34051-2 #### [facility] CLIA [id number] [address] [place] [address] [place] Nucleated RBC (Bld) [#/Vol] 10*3/uL Normal <0.01 [facility] Comment on above: Order Comment: Speci men Type: BLOOD SPECIMEN Ordering Facility: [facility] Address: [address], [place] [address] Performed By: #### 3 016-3, 273-8, 4-7, 3051-0, 46299-5 #### [facility] CLIA [id number] [address] [place] [address] [place] Platelet mean volume (Bld) [Entitic vol] 9.4 fL Normal 9.0-12.7 [facility] Comment on above: Order Comment: Speci men Type: BLOOD SPECIMEN Ordering Facility: [facility] Address: [address], [place] [address] Performed By: #### 3 016-3, 273-8, 3024-7, 3051-0, 21381-6 #### [facility] CLIA [id number] [address] [place], [place] [address] [place] Platelets (Bld) [#/Vol] 194 10*3/uL Normal 150-400 [facility] Comment on above: Order Comment: Speci men Type: BLOOD SPECIMEN Ordering Facility: [facility] Address: [address], [place] [address] Performed By: #### 3 016-3, 2731-8, 3024-7, 3051-0, 78538-3 #### [facility] CLIA [id number] [address] [place] [address] RBC (Bld) [#/Vol] 4.23 10*6/uL Normal 3.90-5.20 [facility] Comment on above: Order Comment: Speci men Type: BLOOD SPECIMEN Ordering Facility: [facility] Address: [address], [place] [address] Performed By: #### 3 016-3, 2731-8, 3024-7, 3051-0, 38464-6 #### [facility] CLIA [id number] [address] [place] [address] [facility] WBC (Bld) [#/Vol] 13.47 10*3/uL High 3.70-11.00 [facility] Comment on above: Order Comment: Speci men Type: BLOOD SPECIMEN Ordering Facility: [facility] Address: [address], [place] [address] Performed By: #### 3 016-3, 2731-8, 3024-7, 3051-0, 28263-5 #### [facility] CLIA [id number] [address] [place], [place] [address] [facility] [place] Comprehensive metabolic 2000 panelon 08-31-2024 Albumin [Mass/Vol] 2.7 g/dL Low 3.2-5.0 [facility] Comment on above: Order Comment: Speci men Type: BLOOD SPECIMEN Ordering Facility: [facility] Address: [address], [place] [address] Performed By: #### 3 016-3, 2731-8, 3024-7, 3051-0, 85231-5 #### [facility] CLIA [id number] [address] [place] [address] [place] ALP [Catalytic activity/Vol] 67 U/L Normal 45-117 [facility] Comment on above: Order Comment: Speci men Type: BLOOD SPECIMEN Ordering Facility: [facility] Address: [address], [place] [address] Performed By: #### 3 016-3, 2731-8, 3024-7, 3051-0, 70748-6 #### [facility] CLIA [id number] [address] [place] [address] STATES [facility] ALT [Catalytic activity/Vol] 21 U/L Normal 13-61 [facility] Comment on above: Order Comment: Speci men Type: BLOOD SPECIMEN Ordering Facility: [facility] Address: [address], [place] [address] Result Comment: Resu lts may be falsely depressed after the administration of Sulfasalazine and/or Sulfapyridine. Performed By: #### 3 016-3, 2731-8, 3024-7, 3051-0, 74053-7 #### [facility] CLIA [id number] [address] [place] [address] STATES [facility] Anion gap [Moles/Vol] 7 mmol/L Normal 5-16 [facility] Comment on above: Order Comment: Speci men Type: BLOOD SPECIMEN Ordering Facility: [facility] Address: [address], [place] [address] Performed By: #### 3 016-3, 2731-8, 3024-7, 3051-0, 17956-2 #### [facility] CLIA [id number] [address] [place] [address] [place] [facility] AST [Catalytic activity/Vol] 25 U/L Normal 8-34 [facility] Comment on above: Order Comment: Speci men Type: BLOOD SPECIMEN Ordering Facility: [facility] Address: [address], [place] [address] Result Comment: Resu lts may be falsely depressed after the administration of Sulfasalazine and/or Sulfapyridine. Performed By: #### 3 016-3, 2731-8, 3024-7, 3051-0, 27998-5 #### [facility] CLIA [id number] [address] [place] [address] [place] Bilirubin [Mass/Vol] 0.4 mg/dL Normal 0.2-1.0 [facility] Comment on above: Order Comment: Speci men Type: BLOOD SPECIMEN Ordering Facility: [facility] Address: [address], [place] [address] Performed By: #### 3 016-3, 2731-8, 3024-7, 3051-0, 43223-2 #### [facility] CLIA [id number] [address] [place] [address] [place] Calcium [Mass/Vol] 8.6 mg/dL Normal 8.5-10.5 [facility] Comment on above: Order Comment: Speci jeffry Type: BLOOD SPECIMEN Ordering Facility: [facility] Address: [place] [address] Performed By: #### 3 016-3, 2731-8, 3024-7, 3051-0, 20242-3 #### [facility] CLIA [id number] [address] [place] [address] [place] Chloride [Moles/Vol] 105 mmol/L Normal 98-107 [facility] Comment on above: Order Comment: Speci men Type: BLOOD SPECIMEN Ordering Facility: [facility] Address: [address], [place] [address] Performed By: #### 3 016-3, 2731-8, 3024-7, 3051-0, 77149-3 #### [facility] CLIA [id number] [address] [place], [place] [address] [place] CO2 [Moles/Vol] 25 mmol/L Normal 21-32 [facility] Comment on above: Order Comment: Selin teran Type: BLOOD SPECIMEN Ordering Facility: [facility] Address: [address] [place] [address] Performed By: #### 3 016-3, 2731-8, 3024-7, 3051-0, 28738-9 #### [facility] CLIA [id number] [address] [place] [address] [place] Creatinine [Mass/Vol] 0.50 mg/dL Low 0.51-0.95 [facility] Comment on above: Order Comment: Selin teran Type: BLOOD SPECIMEN Ordering Facility: [facility] Address: [facility] [place] [address] Result Comment: Edda ents receiving either N-Acetylcysteine (NAC) or Metamizole prior to venipuncture, may have falsely depressed results. Performed By: #### 3 016-3, 1-8, 3024-7, 3051-0, 21791-7 #### [facility] CLIA [id number] [address] [place] [address] Creatinine and Glomerular filtration rate.predicted panel (S/P/Bld) 133 mL/min/1.73m??? Normal >=60 [facility] Comment on above: Order Comment: Selin teran Type: BLOOD SPECIMEN Ordering Facility: [facility] Address: [address] , [place] [address] Result Comment: Lennie mated Glomerular Filtration Rate (eGFR) is calculated using the 2020 CKD-EPI creatinine equation. This equation utilizes serum creatinine, sex, and age as parameters. The creatinine assay has traceable calibration to isotope dilution-mass spectrometry. Refer to KDIGO guidelines for clinical interpretation. In patients with unstable renal function, e.g. those with acute kidney injury, the eGFR may not accurately reflect actual GFR. Performed By: #### 3 016-3, 2731-8, 3024-7, 3051-0, 19870-2 #### [facility] CLIA [id number] [address] [place], [place] [address] [place] Glucose [Mass/Vol] 77 mg/dL Normal 70-100 [facility] Comment on above: Order Comment: Selin teran Type: BLOOD SPECIMEN Ordering Facility: [facility] Address: [place] [address] Result Comment: The [place] Diabetes Association (ADA) provides guidance for cutoff values for fasting glucose and random glucose. The ADA defines fasting as no caloric intake for at least 8 hours. Fasting plasma glucose results between 100 to 125 mg/dL indicate increased risk for diabetes (prediabetes). Fasting plasma glucose results greater than or equal to 126 mg/dL meet the criteria for diagnosis of diabetes. In the absence of unequivocal hyperglycemia, results should be confirmed by repeat testing. In a patient with classic symptoms of hyperglycemia or hyperglycemic crisis, random plasma glucose results greater than or equal to 200 mg/dL meet the criteria for diagnosis of diabetes. Reference: Standards of Medical Care in Diabetes 2016, [place] Diabetes Association. Diabetes Care. 2016.39(Suppl 1). Results may be falsely elevated after the administration of Sulfapyridine. Results may be falsely depressed after the administration of Sulfasalazine. Performed By: #### 3 016-3, 2731-8, 3024-7, 3051-0, 13427-2 #### [facility] CLIA [id number] [address] [place], [place] [address] [place] Potassium [Moles/Vol] 3.9 mmol/L Normal 3.5-5.1 [facility] Comment on above: Order Comment: Selin teran Type: BLOOD SPECIMEN Ordering Facility: [facility] Address: [address] , [place] [address] Performed By: #### 3 016-3, 2731-8, 3024-7, 3051-0, 00892-9 #### [facility] CLIA [id number] [address] [place], [place] [address] [place] Protein [Mass/Vol] 5.4 g/dL Low 6.0-8.5 [facility] Comment on above: Order Comment: Speci men Type: BLOOD SPECIMEN Ordering Facility: [facility] Address: [place] [address] Performed By: #### 3 016-3, 2731-8, 3024-7, 3051-0, 15833-7 #### [facility] CLIA [id number] [address] [place], [place] [address] [place] [facility] Sodium [Moles/Vol] 137 mmol/L Normal 136-145 [facility] Comment on above: Order Comment: Speci men Type: BLOOD SPECIMEN Ordering Facility: [facility] Address: [address] [address] Performed By: #### 3 016-3, 2731-8, 3024-7, 3051-0, 23032-7 #### [facility] CLIA [id number] [address] [place], [place] [address] [place] Urea nitrogen [Mass/Vol] 7 mg/dL Normal 7-26 [facility] Comment on above: Order Comment: Wilneri jeffry Type: BLOOD SPECIMEN Ordering Facility: [facility] Address: [place] [address] Performed By: #### 3 016-3, 2731-8, 3024-7, 3051-0, 05437-3 #### [facility] CLIA [id number] [address] [place], [place] [address] [place] HISTORY PHYSICALon HISTORY PHYSICAL HNO ID: [id number] Author: BECCA VILLANUEVA MD Service: Gynecology Author Type: Physician Type: H&P Filed: 08/31/2024 15:20 Note Text: OBSTETRICS EMERGENCY DEPARTMENT HISTORY AND PHYSICAL SERVICE DATE: August 31, 2024 SERVICE TIME: 3:19 PM Subjective Patient's stated reason for arrival: upper R sided back and abdominial pain CHIEF COMPLAINT: upper R sided back and abdominial pain HISTORY OF THE PRESENT ILLNESS: The patient is a 28 year old who is at 26w6d with an WANDA of 12/01/2024, by Patient Reported dating method presenting with above concern. Patient states that she has had right upper quadrant pain radiating into the mid back for the past few weeks. The patient states that the pain is exacerbated when she is in a seated position where she cannot move around like when she is driving. The patient denies any contractions leakage of fluid or vaginal bleeding and is feeling good movements. The patient denies any associated symptoms such as nausea, pain is not dependent on p.o. intake or bowel movements, no hematuria dysuria. HISTORY REVIEW PAST MEDICAL HISTORY Diagnosis Date Endometriosis Generalized anxiety disorder OCD (obsessive compulsive disorder) Psoriasis PAST SURGICAL HISTORY Procedure Laterality Date L'SCOPE DX W/WO BRUSHINGS/WASHINGS 2017 FAMILY HISTORY Problem Relation Age of Onset other (HTN) Mother other (HTN) Father Dementia Maternal Grandmother other (non hodgkins lymphoma) Maternal Grandfather other (CHF) Paternal Grandmother other (atrial fib) Paternal Grandmother other (espophageal cancer) Paternal Grandfather Social History Tobacco Use Smoking status: Never Smokeless tobacco: Never Vaping Use Vaping status: Never Used Substance Use Topics Alcohol use: Not Currently Drug use: Never Obstetric History T0 L0 SAB0 IAB0 Ectopic0 Multiple0 Live Births0 Name of Baby 1: Not recorded Date: Not recorded GA: Not recorded Type: Not recorded Apgar1: Not recorded Apgar5: Not recorded Living: Not recorded There are no active non-hospital problems to display for this patient. ALLERGIES No Known Allergies Prior to Admission Medications Prescriptions Last Dose Informant Patient Reported? Taking? busPIRone (BUSPAR) 10 mg tablet 08/31/2024 No Yes Sig: Take 1 tablet by mouth two times a day. ferrous sulfate (IRON) 325 mg (65 mg iron) tablet 08/30/2024 Yes Yes Sig: Take 325 mg by mouth once daily. ketoconazole (NIZORAL) 2 % shampoo No No Sig: wash the scalp every other wash, lathering and letting shampoo sit for 3 to 5 minutes before rinsing mv,iron,lhn-BN-ewnoe ry cmb.24 400 mcg tab No No Sig: Take 1 tablet by mouth once daily. nitrofurantoin monohydrate and macrocrystal (MACROBID) 100 mg capsule No No Sig: take 1 capsule by mouth twice a day for 3 days Patient taking differently: Take 100 mg by mouth two times a day. prental multivitamin ( VITAMIN) 27 mg iron- 800 mcg tablet 08/30/2024 No Yes Sig: Take 1 tablet by mouth once daily. roflumilast (ZORYVE) 0.3 % foam No No Sig: Apply to the affected area once daily. Do not exceed 2 grams per day venlafaxine ER (EFFEXOR XR) 75 mg 24 hr capsule 08/30/2024 No Yes Sig: Take 1 capsule by mouth once daily. Facility-Administere d Medications: None REVIEW OF SYSTEMS: See HPI GENERAL: Denies fever, chills, night sweats, weight loss, anorexia. HEENT: No visual changes, no hearing changes, no acute congestion or drainage, no sore throat, no difficulty swallowing. NEUROLOGIC: No unusual headache, no seizures, no syncope. No weakness, no focal deficits. CARDIAC: No chest pains, palpitations, or arrhythmia. PULMONARY: No cough, wheezing, shortness of breath, or hemoptysis. GASTROINTESTINAL: No nausea/vomiting. No diarrhea or constipation. No abdominal pain. GENITORURINARY: No dysuria, urgency, hematuria, or frequency BRIDGE BUILDER: As per HPI EXTREMITIES: Denies unusual swelling. MUSCULOSKELETAL: No joint pain or swelling. No muscle weakness. HEMATOLOGIC: No abnormal bruising or bleeding. LYMPHATIC: Denies adenopathy. SKIN: Denies rash. PSYCHIATRIC: Denies depression, anxiety, or suicidal ideation. Objective LAST VITALS: Pulse BP Resp O2 Sat Temp Pain 86 120/73 18 99 % 36.3 ?C (97.3 ?F) 7 HT/WT/BMI: Height Weight BMI 165.1 cm (5' 5) 72.6 kg (160 lb) 26.63 PHYSICAL EXAM: General: Alert and oriented x3, no acute distress HEENT: Normocephalic, atraumatic Neurological: No focal deficits, CN grossly intact Musculoskeletal: Normal range of movement Psychiatric: Normal affect Abdomen: Non tender, non distended, gravid; no flank tenderness OB Exam: FHR -140s cat. 1 [place] -none VE -deferred ULTRASOUND: US findings: LABS Diagnostic tests reviewed for today's visit Maternal Results (In Last 9 Months): Hemoglobin (g/dL) Date/Time Value 08/12/2024 1053 14.1 04/30/2024 1222 13.8 02/27/2024 1020 13.4 He (more content not included)... Normal [facility] Urinalysis complete panel (U )on 08-31-2024 Bacteria LM.HPF (Urine sed) [#/Area] None Seen Normal None Seen [facility] Comment on above: Order Comment: Speci men Type: BLOOD SPECIMEN Ordering Facility: [facility] Address: [address], [place] [address] Performed By: #### 3 016-3, 1-8, 3024-7, 3051-0, 07523-4 #### [facility] CLIA [id number] [address] [place] [address] [place] Bilirubin Ql (U) Negative Normal Negative [facility] Comment on above: Order Comment: Speci men Type: BLOOD SPECIMEN Ordering Facility: [facility] Address: [address], [place] [id number] Performed By: #### 3 016-3, 2730-8, 3024-7, 3051-0, 07501-6 #### [facility] CLIA [id number] [address] [place] [address] [place] Clarity (Unsp spec) Clear Normal Clear [facility] Comment on above: Order Comment: Speci men Type: BLOOD SPECIMEN Ordering Facility: [facility] Address: [address], [place] [address] Performed By: #### 3 016-3, 2730-8, 4-7, 3051-0, 57561-6 #### [facility] CLIA [id number] [address] [place] [address] [place] Color (U) Straw Normal Yellow [facility] Comment on above: Order Comment: Speci men Type: BLOOD SPECIMEN Ordering Facility: [facility] Address: [address] [place] [address] Performed By: #### 3 016-3, 2731-8, 3024-7, 3051-0, 06709-2 #### [facility] CLIA [id number] [address] [place] [address] [facility] [place] Epithelial cells LM.HPF (Urine sed) [#/Area] Few Normal [facility] Comment on above: Order Comment: Speci men Type: BLOOD SPECIMEN Ordering Facility: [facility] Address: [address] , [place] [address] Performed By: #### 3 016-3, 2730-8, 3024-7, 3051-0, 96398-3 #### [facility] CLIA [id number] [address] [place], [place] [address] [place] Glucose Test strip (U) [Mass/Vol] Negative Normal Negative [facility] Comment on above: Order Comment: Speci men Type: BLOOD SPECIMEN Ordering Facility: [facility] Address: [facility] [place] [address] Performed By: #### 3 016-3, 2730-8, 4-7, 3051-0, 21077-5 #### [facility] CLIA [id number] [address] [place], [place] [address] [place] Hemoglobin Ql (U) Negative Normal Negative [facility] Comment on above: Order Comment: Speci men Type: BLOOD SPECIMEN Ordering Facility: [facility] Address: [facility] [address] , [place] [address] Performed By: #### 3 016-3, 2730-8, 4-7, 3051-0, 30903-9 #### [facility] CLIA [id number] [address] [place], [place] [address] [facility] [place] Ketones Ql (U) Negative Normal Negative [facility] Comment on above: Order Comment: Speci men Type: BLOOD SPECIMEN Ordering Facility: [facility] Address: [address] , [place], [place] [address] Performed By: #### 3 016-3, 1-8, 3024-7, 3051-0, 55316-7 #### [facility] CLIA [id number] [address] [place], [place] [address] [place] Leukocyte esterase Test strip Ql (U) Negative Normal Negative [facility] Comment on above: Order Comment: Speci men Type: BLOOD SPECIMEN Ordering Facility: [facility] Address: [facility] [place] [address] Performed By: #### 3 016-3, 2731-8, 3024-7, 3051-0, 21092-2 #### [facility] CLIA [id number] [address] [place], [place] [address] [place] Nitrite Ql (U) Negative Normal Negative [facility] Comment on above: Order Comment: Speci men Type: BLOOD SPECIMEN Ordering Facility: [facility] Address: [facility] [place] [address] Performed By: #### 3 016-3, 2731-8, 3024-7, 3051-0, 36066-4 #### [facility] CLIA [id number] [address] [place], [place] [address] [place] pH (U) 8.0 [pH] Normal 5.0-8.0 [facility] Comment on above: Order Comment: Speci men Type: BLOOD SPECIMEN Ordering Facility: [facility] Address: [facility] [place] [address] Performed By: #### 3 016-3, 2731-8, 3024-7, 3051-0, 42611-7 #### [facility] CLIA [id number] [address] [place], [place] [address] [place] Protein (U) [Mass/Vol] Negative Normal Negative [facility] Comment on above: Order Comment: Speci men Type: BLOOD SPECIMEN Ordering Facility: [facility] Address: [facility] [place] [address] Performed By: #### 3 016-3, 2731-8, 3024-7, 3051-0, 59552-7 #### [facility] CLIA [id number] [address] [place] [address] [place] RBC LM.HPF (Urine sed) [#/Area] 0-3 /HPF Normal 0-3 /HPF [facility] Comment on above: Order Comment: Speci men Type: BLOOD SPECIMEN Ordering Facility: [facility] Address: [facility] [place] [address] Performed By: #### 3 016-3, 2731-8, 3024-7, 3051-0, 27127-9 #### [facility] CLIA [id number] [address] [place] [address] [place] Specific gravity (U) [Rel density] <1.005 Low 1.005-1.030 [facility] Comment on above: Order Comment: Speci men Type: BLOOD SPECIMEN Ordering Facility: [facility] Address: [facility] [place] [address] Performed By: #### 3 016-3, 2731-8, 3024-7, 3051-0, 66381-1 #### [facility] CLIA [id number] [address] [place] [address] [place] Urobilinogen Ql (U) Negative Normal Negative [facility] Comment on above: Order Comment: Speci men Type: BLOOD SPECIMEN Ordering Facility: [facility] Address: [facility] [place] [address] Performed By: #### 3 016-3, 2731-8, 3024-7, 3051-0, 76547-7 #### [facility] CLIA [id number] [address] [place] [address] [place] WBC LM.HPF (Urine sed) [#/Area] 0-5 /HPF Normal 0-5 /HPF [facility] Comment on above: Order Comment: Speci men Type: BLOOD SPECIMEN Ordering Facility: [facility] Address: [address] [place] [address] Performed By: #### 3 016-3, 273-8, 3024-7, 3051-0, 87174-0 #### [facility] CLIA [id number] [address] [place] [address] [place] CBC panel Auto (Bld)on 08-12 Erythrocyte distribution width (RBC) [Ratio] 13.3 % Normal 11.5-15.0 [facility] Comment on above: Order Comment: Speci men Type: BLOOD SPECIMEN Ordering Facility: [facility] Address: [address] [place] [address] Performed By: #### 5 8410-2 #### [facility] CLIA [id number] [address] [place] [address] [place] Hematocrit (Bld) [Volume fraction] 42.3 % Normal 36.0-46.0 [facility] Comment on above: Order Comment: Speci men Type: BLOOD SPECIMEN Ordering Facility: [facility] Address: [address] [place] [address] Performed By: #### 5 8410-2 #### [facility] CLIA [id number] [address] [place] [address] [place] Hemoglobin (Bld) [Mass/Vol] 14.1 g/dL Normal 11.5-15.5 [facility] Comment on above: Order Comment: Speci men Type: BLOOD SPECIMEN Ordering Facility: [facility] Address: [address] [place] [address] Performed By: #### 5 8410-2 #### [facility] CLIA [id number] [address] [place] [address] [place] MCH (RBC) [Entitic mass] 29.4 pg Normal 26.0-34.0 [facility] Comment on above: Order Comment: Speci men Type: BLOOD SPECIMEN Ordering Facility: [facility] Address: [address] [place] [address] Performed By: #### 5 8410-2 #### [facility] CLIA [id number] [address] [place] [address] [place] MCHC (RBC) [Mass/Vol] 33.3 g/dL Normal 30.5-36.0 [facility] Comment on above: Order Comment: Speci men Type: BLOOD SPECIMEN Ordering Facility: [facility] Address: [address] [place] [address] Performed By: #### 5 8410-2 #### [facility] CLIA [id number] [address] [place] [address] [place] MCV (RBC) [Entitic vol] 88.1 fL Normal 80.0-100.0 [facility] Comment on above: Order Comment: Speci men Type: BLOOD SPECIMEN Ordering Facility: [facility] Address: [address] [place] [address] Performed By: #### 5 8410-2 #### [facility] CLIA [id number] [address] [place] [address] [place] Nucleated RBC (Bld) [#/Vol] 10*3/uL Normal <0.01 [facility] Comment on above: Order Comment: Speci men Type: BLOOD SPECIMEN Ordering Facility: [facility] Address: [address] [place] [address] Performed By: #### 5 8410-2 #### [facility] CLIA [id number] [address] [place] [address] [place] Platelet mean volume (Bld) [Entitic vol] 9.1 fL Normal 9.0-12.7 [facility] Comment on above: Order Comment: Speci men Type: BLOOD SPECIMEN Ordering Facility: [facility] Address: [address] [place] [address] Performed By: #### 5 8410-2 #### [facility] CLIA [id number] [address] [place] [address] [place] Platelets (Bld) [#/Vol] 208 10*3/uL Normal 150-400 [facility] Comment on above: Order Comment: Speci men Type: BLOOD SPECIMEN Ordering Facility: [facility] Address: [address] [place] [address] Performed By: #### 5 8410-2 #### [facility] CLIA [id number] [address] [place] [address] [place] RBC (Bld) [#/Vol] 4.80 10*6/uL Normal 3.90-5.20 [facility] Comment on above: Order Comment: Speci men Type: BLOOD SPECIMEN Ordering Facility: [facility] Address: [address] [place] [address] Performed By: #### 5 8410-2 #### [facility] CLIA [id number] [address] [place] [address] [place] WBC (Bld) [#/Vol] 13.73 10*3/uL High 3.70-11.00 [facility] Comment on above: Order Comment: Speci men Type: BLOOD SPECIMEN Ordering Facility: [facility] Address: [address] [place] [address] Performed By: #### 5 8410-2 #### [facility] CLIA [id number] [address] [place] [address] [place] Iron and Iron binding capaci ty panelon 08-12-2024 Iron [Mass/Vol] 116 ug/dL Normal 41-186 [facility] Comment on above: Order Comment: Speci men Type: BLOOD SPECIMEN Ordering Facility: [facility] Address: [address] [place] [address] Performed By: #### 5 0190-8 #### [facility] CLIA [id number] [address] [place] [address] [place] Iron binding capacity [Mass/Vol] 403 ug/dL High 232-386 [facility] Comment on above: Order Comment: Speci men Type: BLOOD SPECIMEN Ordering Facility: [facility] Address: [address] [place] [address] Performed By: #### 5 0190-8 #### [facility] CLIA [id number] [address] [place] [address] [place] Iron saturation [Mass fraction] 28.8 % Normal 15.0-57.0 [facility] Comment on above: Order Comment: Speci men Type: BLOOD SPECIMEN Ordering Facility: [facility] Address: [facility] [place] [address] Performed By: #### 5 0190-8 #### [facility] CLIA [id number] [address] [place] [address] [place] RPR Ser Qlon 08-12-2024 Reagin Ab RPR Ql (S) Non-Reactive Normal Nonreactive C [facility] Comment on above: Order Comment: Speci men Type: BLOOD SPECIMEN Ordering Facility: [facility] Address: [address] [place] [address] Result Comment: Rapi d plasma reagin (RPR) test detects non-treponemal antibodies. RPR may be reactive in a variety of infectious and non-infectious conditions. Correlation with clinical picture and with treponemal antibody results is required for final interpretation. Performed By: #### 2 0507-0 #### [facility] CLIA [id number] [address] [place] [address] [place] Bacteria Ur Culton 4 Bacteria identified Cx Nom (U) CULTURE, URINE: 10,000-<50,000 CFU/ml Normal Urogenital Nisa Normal [facility] Comment on above: Performed By: #### 3 016-3, 2731-8, 3024-7, 3051-0, 40479-9 #### [facility] CLIA [id number] [address] [place] [address] [place] Bacteria Ur Culton 4 Bacteria identified Cx Nom (U) CULTURE, URINE: 50,000-<100,000 CFU/mL Three or more organisms, no one type predominant, suggesting contamination during collection. Recollect if clinically indicated. Abnormal [facility] Comment on above: Performed By: #### 3 016-3, 2731-8, 3024-7, 3051-0, 22103-2 #### [facility] CLIA [id number] [address] [place] [address] [place] CBC panel Auto (Bld)on 04-30 Erythrocyte distribution width (RBC) [Ratio] 12.2 % Normal 11.5-15.0 [facility] Comment on above: Order Comment: Speci men Type: BLOOD SPECIMEN Ordering Facility: [facility] Address: [address] [place] [address] Performed By: #### 5 8410-2 #### [facility] CLIA [id number] [address] [place] [address] [facility] Hematocrit (Bld) [Volume fraction] 41.0 % Normal 36.0-46.0 [facility] Comment on above: Order Comment: Speci men Type: BLOOD SPECIMEN Ordering Facility: [facility] Address: [address] [place] [address] Performed By: #### 5 8410-2 #### [facility] CLIA [id number] [address] [place] [address] [place] Hemoglobin (Bld) [Mass/Vol] 13.8 g/dL Normal 11.5-15.5 [facility] Comment on above: Order Comment: Speci men Type: BLOOD SPECIMEN Ordering Facility: [facility] Address: [address] [place] [address] Performed By: #### 5 8410-2 #### [facility] CLIA [id number] [address] [place] [address] [place] MCH (RBC) [Entitic mass] 28.8 pg Normal 26.0-34.0 [facility] Comment on above: Order Comment: Speci men Type: BLOOD SPECIMEN Ordering Facility: [facility] Address: [address] [place] [address] Performed By: #### 5 8410-2 #### [facility] CLIA [id number] [address] [place] [address] [place] MCHC (RBC) [Mass/Vol] 33.7 g/dL Normal 30.5-36.0 [facility] Comment on above: Order Comment: Speci men Type: BLOOD SPECIMEN Ordering Facility: [facility] Address: [address] [place] [address] Performed By: #### 5 8410-2 #### [facility] CLIA [id number] [address] [place] [address] [place] MCV (RBC) [Entitic vol] 85.6 fL Normal 80.0-100.0 [facility] Comment on above: Order Comment: Speci men Type: BLOOD SPECIMEN Ordering Facility: [facility] Address: [address] [place] [address] Performed By: #### 5 8410-2 #### [facility] CLIA [id number] [address] [place] [address] [place] Nucleated RBC (Bld) [#/Vol] 10*3/uL Normal <0.01 [facility] Comment on above: Order Comment: Speci men Type: BLOOD SPECIMEN Ordering Facility: [facility] Address: [address] [place] [address] Performed By: #### 5 8410-2 #### [facility] CLIA [id number] [address] [place] [address] [place] Platelet mean volume (Bld) [Entitic vol] 9.1 fL Normal 9.0-12.7 [facility] Comment on above: Order Comment: Speci men Type: BLOOD SPECIMEN Ordering Facility: [facility] Address: [address] [place] [address] Performed By: #### 5 8410-2 #### [facility] CLIA [id number] [address] [place] [address] [place] Platelets (Bld) [#/Vol] 295 10*3/uL Normal 150-400 [facility] Comment on above: Order Comment: Speci men Type: BLOOD SPECIMEN Ordering Facility: [facility] Address: [address] [place] [address] Performed By: #### 5 8410-2 #### [facility] CLIA [id number] [address] [place] [address] [place] RBC (Bld) [#/Vol] 4.79 10*6/uL Normal 3.90-5.20 [facility] Comment on above: Order Comment: Speci men Type: BLOOD SPECIMEN Ordering Facility: [facility] Address: [address] [place] [address] Performed By: #### 5 8410-2 #### [facility] CLIA [id number] [address] [place] [address] [facility] WBC (Bld) [#/Vol] 14.56 10*3/uL High 3.70-11.00 [facility] Comment on above: Order Comment: Speci men Type: BLOOD SPECIMEN Ordering Facility: [facility] Address: [address] [place] [address] Performed By: #### 5 8410-2 #### [facility] CLIA [id number] [address] [place] [address] [place] Ferritin SerPl-mCncon 2023 Ferritin [Mass/Vol] 29.4 ng/mL Normal 8.0-307.0 [facility] Comment on above: Order Comment: Speci men Type: BLOOD SPECIMEN Ordering Facility: [facility] Address: [address] [place] [address] Performed By: #### 2 276-4 #### [facility] CLIA [id number] [address] [place] [address] [place] HBV core Ab Ser Qlon 024 HBV core Ab Ql (S) Non-Reactive Normal Nonreactive [facility] Comment on above: Order Comment: Speci men Type: BLOOD SPECIMEN Ordering Facility: [facility] Address: [address], [place] [id number] Result Comment: Resu lts were obtained with the [employer] IM IgM assay. Values obtained with different manufactures' assay methods may not be used interchangeably. Performed By: #### 3 016-3, 1-8, 3024-7, 3051-0, 33771-3 #### [facility] CLIA [id number] [address] [place] [address] [place] HBV surface Ab Ql (S)on 04-17 HBV surface Ab Qn (S) <3.10 Normal [facility] Comment on above: Order Comment: Speci men Type: BLOOD SPECIMEN Ordering Facility: [facility] Address: [address], [place] [address] Result Comment: STAT US OF IMMUNITY Protective Immunity: greater than or equal to 10 mIU/mL (Traceable to WHO International Reference Preparation) No Protective Immunity: less than 10 mIU/mL Note: The magnitude of the measured result above the cutoff is not indicative of the total amount of antibody present. Performed By: #### 3 016-3, 2730-8, 4-7, 3051-0, 12410-4 #### [facility] CLIA [id number] [address] [place] [address] HBV surface Ab Ser Qlon 04-17 HBV surface Ab Ql (S) Negative Normal [facility] Comment on above: Order Comment: Speci men Type: BLOOD SPECIMEN Ordering Facility: [facility] Address: [address], [place] [address] Result Comment: No s erological evidence of immunity to Hepatitis B Virus. Performed By: #### 3 016-3, 2731-8, 3024-7, 3051-0, 87542-3 #### [facility] CLIA [id number] [address] [place] [address] [facility] HBV surface Ag Ser Qlon 04-17 HBV surface Ag Ql (S) Non-Reactive Normal Equivo estela, Nonreactive [facility] Comment on above: Order Comment: Speci men Type: BLOOD SPECIMEN Ordering Facility: [facility] Address: [address] [place] [address] Result Comment: Resu lts were obtained with the [employer] IM IgM assay. Values obtained with different manufactures' assay methods may not be used interchangeably. Performed By: #### 3 016-3, 2731-8, 3024-7, 3051-0, 41613-8 #### [facility] CLIA [id number] [address] [place] [address] [place] HCV Ab Ser Qlon 04-30-2024 HCV Ab Ql (S) Non-Reactive Normal Nonreactive [facility] Comment on above: Order Comment: Selin teran Type: BLOOD SPECIMEN Ordering Facility: [facility] Address: [address] [place] [address] Result Comment: Scre ening test negative Nonreactive HCV Antibody Screen is consistent with no HCV infection, unless recent infection is suspected or other evidence exists to indicate HCV infection. Results were obtained with the [employer] IM IgG assay. Values obtained with different manufactures' assay methods may not be used interchangeably. Performed By: #### 3 016-3, 2731-8, 3024-7, 3051-0, 50645-1 #### [facility] CLIA [id number] [address] [place] [address] [place] HGB ELECTROPHORESIS FOR EVAL (LAB ORDER)on 04-30-2024 Hemoglobin A (Bld) [Mass fraction] 97.3 % Normal 96.2-98.0 [facility] Comment on above: Order Comment: Selin teran Type: BLOOD SPECIMEN Ordering Facility: [facility] Address: [address] [place] [address] Performed By: #### L [id number], HGBELEV #### [facility] CLIA [id number] [address] [place] [address] [place] Hemoglobin A2 (Bld) [Mass fraction] 2.7 % Normal 2.0-3.1 [facility] Comment on above: Order Comment: Selin teran Type: BLOOD SPECIMEN Ordering Facility: [facility] Address: [address] [place] [address] Performed By: #### L [id number], HGBELEV #### [facility] CLIA [id number] [address] [place] [address] [place] Hemoglobin Unsp Elph (Bld) [Mass fraction] No abnormal hemoglobin identified. Normal No abnormal hemoglobin identified. [facility] Comment on above: Order Comment: Speci men Type: BLOOD SPECIMEN Ordering Facility: [facility] Address: [address] [place] [address] Performed By: #### L [id number], HGBELEV #### [facility] CLIA [id number] [address] [place] [address] [place] HGB EVALUATION CASCADE INTER Popeye 04-30-2024 Hemoglobin pattern (Bld) [Interp] Reviewed by Sarah Sales M.D. Normal [facility] Comment on above: Order Comment: Speci men Type: BLOOD SPECIMEN Ordering Facility: [facility] Address: [address] [place] [address] Performed By: #### L [id number], HGBELEV #### [facility] CLIA [id number] [address] [place] [address] [place] INTERPRETATION (HGB EVAL) Normal [facility] Comment on above: Order Comment: Speci men Type: BLOOD SPECIMEN Ordering Facility: [facility] Address: [address] [place] [address] Result Comment: Hemo globins were analyzed by capillary electrophoresis and CBC red cell parameters were reviewed. No abnormal hemoglobin is identified. There is a normal hemoglobin capillary electrophoresis pattern. Performed By: #### L [id number], HGBELEV #### [facility] CLIA [id number] [address] [place] [address] [place] HIV 1+2 Ab IA Qlon HIV 1+2 Ab+HIV1 p24 Ag IA Ql Non-Reactive Normal Nonreactive [facility] Comment on above: Order Comment: Speci men Type: BLOOD SPECIMEN Ordering Facility: [facility] Address: [address], [place] [address] Result Comment: Nonr eactive: Less than 1.0 index value Specimens with an index value <1.0 are considered nonreactive for antibodies to HIV-1, HIV-2, and p24 antigen by the [employer] IM CHIV assay. Performed By: #### 3 016-3, 2731-8, 4-7, 3051-0, 12409-6 #### [facility] CLIA [id number] [address] [place] [address] [place] RUBELLA IGG ANTIBODYon 04-30 RUBELLA IGG AB, QUAL Positive Normal Positive [facility] Comment on above: Order Comment: Speci men Type: BLOOD SPECIMEN Ordering Facility: [facility] Address: [address], [place] [address] Result Comment: <5 I U/ML Negative for IgG antibodies to Rubella >= 5-9.9 IU/ML Equivocal for IgG antibodies to Rubella Virus. Obtain new specimen and test using Rubella IgG assay. >=10 IU/ML Positive for IgG antibodies to Rubella Performed By: #### 3 016-3, 2730-8, 4-7, 3051-0, 95867-3 #### [facility] CLIA [id number] [address] [place] [address] [place] TREPONEMA PALLIDUM SCREENon 04-30-2024 T. pallidum IgG IF Ql (S) Non-Reactive Normal Nonreactive [facility] Comment on above: Order Comment: Speci men Type: BLOOD SPECIMEN Ordering Facility: [facility] Address: [address], [place] [address] Result Comment: Samp les with an index value of less than 0.90 are considered Nonreactive for Syphilis T. pallidum antibodies. Performed By: #### 3 016-3, 2731-8, 3024-7, 3051-0, 61143-0 #### [facility] CLIA [id number] [address] [place], [place] [address] [place] TYPE + SCREENon 04-30-2024 ABO O Normal [facility] Comment on above: Order Comment: Selin teran Type: BLOOD SPECIMEN Ordering Facility: [facility] Address: [facility] [address] [facility] [place] [address] Performed By: #### 3 016-3, 2731-8, 3024-7, 3051-0, 91015-9 #### [facility] CLIA [id number] [address] [place], [place] [address] [place] Rh Nom (Bld) Positive Normal [facility] Comment on above: Order Comment: Slein teran Type: BLOOD SPECIMEN Ordering Facility: [facility] Address: [facility] [place] [address] Performed By: #### 3 016-3, 2731-8, 3024-7, 3051-0, 33933-6 #### [facility] CLIA [id number] [address] [place], [place] [address] [place] TYPE AND SCREEN EXPIRATION 05/03/2024 23:59 Normal [facility] Comment on above: Order Comment: Selin teran Type: BLOOD SPECIMEN Ordering Facility: [facility] Address: [facility] [place] [address] Performed By: #### 3 016-3, 2731-8, 3024-7, 3051-0, 99151-3 #### [facility] CLIA [id number] [address] [place], [place] [address] [place] VARICELLA ZOSTER IGGon 04-30 VARICELLA ZOSTER IGG, QUAL Positive Normal Positive [facility] Comment on above: Order Comment: Selin teran Type: BLOOD SPECIMEN Ordering Facility: [facility] Address: [facility] [place] [address] Result Comment: The result suggests recent or past exposure to Varicella-Zoster virus or chickenpox vaccination or zoster vaccination. Positive result may also be seen due to presence of passively-transferred antibodies. Please correlate with patient's history. Performed By: #### 3 016-3, 2731-8, 3024-7, 3051-0, 41128-0 #### [facility] CLIA [id number] [address] [place] [address] C. trachomatis+N. gonorrhoea e DNA JOHNSON+probe Ql (Unsp spec)on 04-24-2024 C. trachomatis rRNA JOHNSON+probe Ql (Unsp spec) Negative Normal Negative for Chlamydia trachomatis by amplificaton [facility] Comment on above: Order Comment: Speci men Type: SWAB Ordering Facility: [facility] Address: [address] [place] [address] Performed By: #### 3 6902-5 #### [facility] CLIA [id number] [address] [place] [address] N. gonorrhoeae rRNA JOHNSON+probe Ql (Unsp spec) Negative Normal Negative for Neisseria gonorrhoeae by amplification [facility] Comment on above: Order Comment: Speci men Type: SWAB Ordering Facility: [facility] Address: [address] [place] [address] Performed By: #### 3 6902-5 #### [facility] CLIA [id number] [address] [place] [address] GENITAL CULTUREon 04-24-2024 GENITAL CULTURE CULTURE, GENITAL: Moderate normal genital nisa ORGANISM ID: 1 No colonies observed Streptococci, beta hemolytic group b No Neisseria gonorrhea isolated. 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 No nodules. Will continue to monitor TSH. No further work-up at this time. PAVITHRA Tsang Kathryn, MA 03/03/2024 8:41 AM Signed Pt notified of results via [facility]. Nicole Sterling Ma Allergies As of Date: 03/03/2024 (Not on File) Date Reviewed: 02/26/2024 Reviewed by: Natalia Kevin APRN.CNP - Fully Assessed Reason for Visit: Results [95] Prescriptions as of 03/03/2024 - prental multivitamin ( VITAMIN) 27 mg iron- 800 mcg tablet Take 1 tablet by mouth once daily. - mv,iron,itz-DP-xidkk ry cmb.24 400 mcg tab Take 1 tablet by mouth once daily. - venlafaxine ER (EFFEXOR XR) 75 mg 24 hr capsule Take 1 capsule by mouth once daily. - busPIRone (BUSPAR) 10 mg tablet Take 1 tablet by mouth two times a day. Problem List As Of Date: 03/03/2024 (None) Encounter Status:Closed by NICOLE STERLING on 03/03/24 Normal [facility] CBC W Auto Differential pane l (Bld)on 02-27-2024 Basophils (Bld) [#/Vol] 10*3/uL Normal <0.11 [facility] Comment on above: Order Comment: Speci men Type: BLOOD SPECIMEN Ordering Facility: [facility] Address: [address] [place] [address] Performed By: #### 5 7021-8 #### [facility] CLIA [id number] [address] [place] [address] [place] Basophils/100 WBC (Bld) 0.4 % Normal [facility] Comment on above: Order Comment: Speci men Type: BLOOD SPECIMEN Ordering Facility: [facility] Address: [address] [place] [address] Performed By: #### 5 7021-8 #### [facility] CLIA [id number] [address] [place] [address] [place] Differential cell count method Nom (Bld) Auto Normal [facility] Comment on above: Order Comment: Speci men Type: BLOOD SPECIMEN Ordering Facility: [facility] Address: [address] [place] [address] Performed By: #### 5 7021-8 #### [facility] CLIA [id number] [address] [place] [address] [place] Eosinophils (Bld) [#/Vol] 0.13 10*3/uL Normal <0.46 [facility] Comment on above: Order Comment: Speci men Type: BLOOD SPECIMEN Ordering Facility: [facility] Address: [address] [place] [address] Performed By: #### 5 7021-8 #### [facility] CLIA [id number] [address] [place] [address] [place] Eosinophils/100 WBC (Bld) 2.5 % Normal [facility] Comment on above: Order Comment: Speci men Type: BLOOD SPECIMEN Ordering Facility: [facility] Address: [address] [place] [address] Performed By: #### 5 7021-8 #### [facility] CLIA [id number] [address] [place] [address] [place] Erythrocyte distribution width (RBC) [Ratio] 12.5 % Normal 11.5-15.0 [facility] Comment on above: Order Comment: Speci men Type: BLOOD SPECIMEN Ordering Facility: [facility] Address: [address] [place] [address] Performed By: #### 5 7021-8 #### [facility] CLIA [id number] [address] [place] [address] [place] Hematocrit (Bld) [Volume fraction] 41.0 % Normal 36.0-46.0 [facility] Comment on above: Order Comment: Speci men Type: BLOOD SPECIMEN Ordering Facility: [facility] Address: [facility] [place] [id number] Performed By: #### 5 7021-8 #### [facility] CLIA [id number] [address] [place] [address] [place] Hemoglobin (Bld) [Mass/Vol] 13.4 g/dL Normal 11.5-15.5 [facility] Comment on above: Order Comment: Speci men Type: BLOOD SPECIMEN Ordering Facility: [facility] Address: [address] [place] [address] Performed By: #### 5 7021-8 #### [facility] CLIA [id number] [address] [place] [address] [place] Immature granulocytes (Bld) [#/Vol] 10*3/uL Normal <0.10 [facility] Comment on above: Order Comment: Speci men Type: BLOOD SPECIMEN Ordering Facility: [facility] Address: [address] [place] [address] Performed By: #### 5 7021-8 #### [facility] CLIA [id number] [address] [place] [address] [place] Immature granulocytes/100 WBC (Bld) 0.4 % Normal [facility] Comment on above: Order Comment: Speci men Type: BLOOD SPECIMEN Ordering Facility: [facility] Address: [address] [place] [address] Performed By: #### 5 7021-8 #### [facility] CLIA [id number] [address] [place] [address] [place] Lymphocytes (Bld) [#/Vol] 1.80 10*3/uL Normal 1.00-4.00 [facility] Comment on above: Order Comment: Speci men Type: BLOOD SPECIMEN Ordering Facility: [facility] Address: [address] [place] [address] Performed By: #### 5 7021-8 #### [facility] CLIA [id number] [address] [place] [address] [place] Lymphocytes/100 WBC (Bld) 34.0 % Normal [facility] Comment on above: Order Comment: Speci men Type: BLOOD SPECIMEN Ordering Facility: [facility] Address: [address] [place] [address] Performed By: #### 5 7021-8 #### [facility] CLIA [id number] [address] [place] [address] [place] MCH (RBC) [Entitic mass] 29.1 pg Normal 26.0-34.0 [facility] Comment on above: Order Comment: Speci men Type: BLOOD SPECIMEN Ordering Facility: [facility] Address: [address] [place] [address] Performed By: #### 5 7021-8 #### [facility] CLIA [id number] [address] [place] [address] [place] MCHC (RBC) [Mass/Vol] 32.7 g/dL Normal 30.5-36.0 [facility] Comment on above: Order Comment: Speci men Type: BLOOD SPECIMEN Ordering Facility: [facility] Address: [address] [place] [address] Performed By: #### 5 7021-8 #### [facility] CLIA [id number] [address] [place] [address] [place] MCV (RBC) [Entitic vol] 88.9 fL Normal 80.0-100.0 [facility] Comment on above: Order Comment: Speci men Type: BLOOD SPECIMEN Ordering Facility: [facility] Address: [facility] [place] [address] Performed By: #### 5 7021-8 #### [facility] CLIA [id number] [address] [place] [address] [place] Monocytes (Bld) [#/Vol] 0.41 10*3/uL Normal <0.87 [facility] Comment on above: Order Comment: Speci men Type: BLOOD SPECIMEN Ordering Facility: [facility] Address: [address] [place] [address] Performed By: #### 5 7021-8 #### [facility] CLIA [id number] [address] [place] [address] [place] Monocytes/100 WBC (Bld) 7.7 % Normal [facility] Comment on above: Order Comment: Speci men Type: BLOOD SPECIMEN Ordering Facility: [facility] Address: [address] [place] [address] Performed By: #### 5 7021-8 #### [facility] CLIA [id number] [address] [place] [address] [place] Neutrophils (Bld) [#/Vol] 2.92 10*3/uL Normal 1.45-7.50 [facility] Comment on above: Order Comment: Speci men Type: BLOOD SPECIMEN Ordering Facility: [facility] Address: [address] [place] [address] Performed By: #### 5 7021-8 #### [facility] CLIA [id number] [address] [place] [address] [place] Neutrophils/100 WBC (Bld) 55.0 % Normal [facility] Comment on above: Order Comment: Speci men Type: BLOOD SPECIMEN Ordering Facility: [facility] Address: [address] [place] [address] Performed By: #### 5 7021-8 #### [facility] CLIA [id number] [address] [place] [address] [place] Nucleated RBC (Bld) [#/Vol] 10*3/uL Normal <0.01 [facility] Comment on above: Order Comment: Speci men Type: BLOOD SPECIMEN Ordering Facility: [facility] Address: [address] [place] [address] Performed By: #### 5 7021-8 #### [facility] CLIA [id number] [address] [place] [address] [place] Nucleated RBC/100 WBC (Bld) [Ratio] 0.0 /100 WBC Normal [facility] Comment on above: Order Comment: Speci men Type: BLOOD SPECIMEN Ordering Facility: [facility] Address: [address] [place] [address] Performed By: #### 5 7021-8 #### [facility] CLIA [id number] [address] [place] [address] [place] Platelet mean volume (Bld) [Entitic vol] 9.3 fL Normal 9.0-12.7 [facility] Comment on above: Order Comment: Speci men Type: BLOOD SPECIMEN Ordering Facility: [facility] Address: [address] [place] [address] Performed By: #### 5 7021-8 #### [facility] CLIA [id number] [address] [place] [address] [place] Platelets (Bld) [#/Vol] 254 10*3/uL Normal 150-400 [facility] Comment on above: Order Comment: Speci men Type: BLOOD SPECIMEN Ordering Facility: [facility] Address: [address] [place] [address] Performed By: #### 5 7021-8 #### [facility] CLIA [id number] [address] [place] [address] [place] RBC (Bld) [#/Vol] 4.61 10*6/uL Normal 3.90-5.20 [facility] Comment on above: Order Comment: Speci men Type: BLOOD SPECIMEN Ordering Facility: [facility] Address: [address] [place], [place] [address] Performed By: #### 5 7021-8 #### [facility] CLIA [id number] [address] [place] [address] [place] WBC (Bld) [#/Vol] 5.30 10*3/uL Normal 3.70-11.00 [facility] Comment on above: Order Comment: Speci men Type: BLOOD SPECIMEN Ordering Facility: [facility] Address: [address] [place] [address] Performed By: #### 5 7021-8 #### [facility] CLIA [id number] [address] [place] [address] [place] CNPNon 02-27-2024 [facility] EUGENE AHMADI ([id number]) 1995 [address] [facility] Date Time Provider Department 02/27/24 CARIDAD WHEELER [facility] During your visit today, we recorded the following information about you: Twyla Ga MA 02/27/2024 11:56 AM Signed ----- Message from Caridad Wheeler MD sent at 02/27/2024 11:30 AM EDT ----- Normal labs. No change in regimen. Twyla Ga MA 02/27/2024 11:57 AM Signed Pt notified of results and recommendations below from Provider via [facility]. 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 - mv,iron,kur-YA-ertia ry cmb.24 400 mcg tab Take 1 tablet by mouth once daily. - venlafaxine ER (EFFEXOR XR) 75 mg 24 hr capsule Take 1 capsule by mouth once daily. - busPIRone (BUSPAR) 10 mg tablet Take 1 tablet by mouth two times a day. Problem List As Of Date: 02/27/2024 (None) Encounter Status:Closed by TWYLA GA on 02/27/24 Normal [facility] Comprehensive metabolic 2000 panelon 02-27-2024 Albumin [Mass/Vol] 4.5 g/dL Normal 3.9-4.9 [facility] Comment on above: Order Comment: Speci men Type: BLOOD SPECIMEN Ordering Facility: [facility] Address: [address] [place] [address] Performed By: #### 5 8410-2 #### [facility] CLIA [id number] [address] [place] [address] [place] ALP [Catalytic activity/Vol] 56 U/L Normal 34-123 [facility] Comment on above: Order Comment: Speci men Type: BLOOD SPECIMEN Ordering Facility: [facility] Address: [address] [place] [address] Performed By: #### 5 8410-2 #### [facility] CLIA [id number] [address] [place] [address] [place] ALT [Catalytic activity/Vol] 10 U/L Normal 7-38 [facility] Comment on above: Order Comment: Speci men Type: BLOOD SPECIMEN Ordering Facility: [facility] Address: [address] [place] [address] Performed By: #### 5 8410-2 #### [facility] CLIA [id number] [address] [place] [address] [place] Anion gap [Moles/Vol] 11 mmol/L Normal 8-15 [facility] Comment on above: Order Comment: Speci men Type: BLOOD SPECIMEN Ordering Facility: [facility] Address: [address] [place] [address] Performed By: #### 5 8410-2 #### [facility] CLIA [id number] [address] [place] [address] [place] AST [Catalytic activity/Vol] 17 U/L Normal 13-35 [facility] Comment on above: Order Comment: Speci men Type: BLOOD SPECIMEN Ordering Facility: [facility] Address: [address] [place] [address] Performed By: #### 5 8410-2 #### [facility] CLIA [id number] [address] [place] [address] [place] Bilirubin [Mass/Vol] 0.9 mg/dL Normal 0.2-1.3 [facility] Comment on above: Order Comment: Speci men Type: BLOOD SPECIMEN Ordering Facility: [facility] Address: [address] [place] [address] Performed By: #### 5 8410-2 #### [facility] CLIA [id number] [address] [place] [address] [place] Calcium [Mass/Vol] 9.5 mg/dL Normal 8.5-10.2 [facility] Comment on above: Order Comment: Speci men Type: BLOOD SPECIMEN Ordering Facility: [facility] Address: [address] [place] [address] Performed By: #### 5 8410-2 #### [facility] CLIA [id number] [address] [place] [address] [place] Chloride [Moles/Vol] 105 mmol/L Normal 98-107 [facility] Comment on above: Order Comment: Speci men Type: BLOOD SPECIMEN Ordering Facility: [facility] Address: [address] [place] [address] Performed By: #### 5 8410-2 #### [facility] CLIA [id number] [address] [place] [address] [place] CO2 [Moles/Vol] 25 mmol/L Normal 22-30 [facility] Comment on above: Order Comment: Speci men Type: BLOOD SPECIMEN Ordering Facility: [facility] Address: [address] [place] [address] Performed By: #### 5 8410-2 #### [facility] CLIA [id number] [address] [place] [address] [place] Creatinine [Mass/Vol] 0.62 mg/dL Normal 0.58-0.96 [facility] Comment on above: Order Comment: Speci men Type: BLOOD SPECIMEN Ordering Facility: [facility] Address: [address] [place] [address] Performed By: #### 5 8410-2 #### [id number] [address] [place] [address] [place] Creatinine and Glomerular filtration rate.predicted panel (S/P/Bld) 126 mL/min/1.73m??? Normal >=60 [facility] Comment on above: Order Comment: Speci men Type: BLOOD SPECIMEN Ordering Facility: [facility] Address: [address] [place] [address] Result Comment: Lennie mated Glomerular Filtration Rate (eGFR) is calculated using the 2020 CKD-EPI creatinine equation. This equation utilizes serum creatinine, sex, and age as parameters. The creatinine assay has traceable calibration to isotope dilution-mass spectrometry. Refer to KDIGO guidelines for clinical interpretation. In patients with unstable renal function, e.g. those with acute kidney injury, the eGFR may not accurately reflect actual GFR. Performed By: #### 5 8410-2 #### [facility] CLIA [id number] [address] [place], [place] [id number] [place] Glucose [Mass/Vol] 69 mg/dL Low 74-99 [facility] Comment on above: Order Comment: Speci men Type: BLOOD SPECIMEN Ordering Facility: [facility] Address: [address] [place] [address] Result Comment: The [place] Diabetes Association (ADA) provides guidance for cutoff values for fasting glucose and random glucose. The ADA defines fasting as no caloric intake for at least 8 hours. Fasting plasma glucose results between 100 to 125 mg/dL indicate increased risk for diabetes (prediabetes). Fasting plasma glucose results greater than or equal to 126 mg/dL meet the criteria for diagnosis of diabetes. In the absence of unequivocal hyperglycemia, results should be confirmed by repeat testing. In a patient with classic symptoms of hyperglycemia or hyperglycemic crisis, random plasma glucose results greater than or equal to 200 mg/dL meet the criteria for diagnosis of diabetes. Reference: Standards of Medical Care in Diabetes 2016, [place] Diabetes Association. Diabetes Care. 2016.39(Suppl 1). Performed By: #### 5 8410-2 #### [facility] CLIA [id number] [address] [place] [address] [place] Potassium [Moles/Vol] 3.9 mmol/L Normal 3.7-5.1 [facility] Comment on above: Order Comment: Wilneri men Type: BLOOD SPECIMEN Ordering Facility: [facility] Address: [address] [place] [address] Performed By: #### 5 8410-2 #### [facility] CLIA [id number] [address] [place] [address] [place] Protein [Mass/Vol] 6.4 g/dL Normal 6.3-8.0 [facility] Comment on above: Order Comment: Speci men Type: BLOOD SPECIMEN Ordering Facility: [facility] Address: [address] [place] [address] Performed By: #### 5 8410-2 #### [facility] CLIA [id number] [address] [place] [address] [place] Sodium [Moles/Vol] 141 mmol/L Normal 136-144 [facility] Comment on above: Order Comment: Speci men Type: BLOOD SPECIMEN Ordering Facility: [facility] Address: [address] [place] [address] Performed By: #### 5 8410-2 #### [facility] CLIA [id number] [address] [place] [address] [place] Urea nitrogen [Mass/Vol] 10 mg/dL Normal 7-21 [facility] Comment on above: Order Comment: Speci men Type: BLOOD SPECIMEN Ordering Facility: [facility] Address: [facility] [place] [address] Performed By: #### 5 8410-2 #### [facility] CLIA [id number] [address] [place] [address] [place] US THYROID/PARATHYROIDon US THYROID/PARATHYROID * * *Final Report * * * DATE OF EXAM: Feb 27 2024 9:56AM U 1048 - US THYROID/PARATHYROID / PROCEDURE REASON: Enlarged thyroid * * * * Physician Interpretation * * * * EXAMINATION: THYROID ULTRASOUND CLINICAL HISTORY: Enlarged thyroid TECHNIQUE: Sonography and Doppler imaging of the thyroid was performed. Images were obtained and stored in a permanent archive. MQ: UST_1 COMPARISON: None. RESULT: Right Lobe: 6.6 x 1.5 x 2.1 cm; homogeneous echogenicity, expected vascular flow. Left Lobe: 5.7 x 1.3 x 1.8 cm; homogeneous echogenicity, expected vascular flow. Isthmus: 0.2 cm Nodules: No discrete nodules seen. IMPRESSION: Enlarged bilateral thyroid. No discrete nodules identified. Ramp Lead: PSCB Transcribe Date/Time: Feb 27 2024 5:11P Dictated by : LEVI GARCIA MD This examination was interpreted and the report reviewed and electronically signed by: LEVI GARCIA MD on Feb 27 2024 5:12PM EST [id number] CN Normal [facility] US Thyroid glandon IMPRESSION: Enlarged bilateral thyroid. No discrete nodules identified. Ramp Lead: BRIAN Transcribe Date/Time: Feb 27 2024 5:11P Dictated by : LEVI GARCIA MD This examination was interpreted and the report reviewed and electronically signed by: LEVI GARCIA MD on Feb 27 2024 5:12PM EST DIVISION OF RADIOLOGY * * *Final Report* * * DATE OF EXAM: Feb 27 2024 9:56AM WRU 1048 - US THYROID/PARATHYROID / PROCEDURE REASON: Enlarged thyroid * * * * Physician Interpretation * * * * EXAMINATION: THYROID ULTRASOUND CLINICAL HISTORY: Enlarged thyroid TECHNIQUE: Sonography and Doppler imaging of the thyroid was performed. Images were obtained and stored in a permanent archive. MQ: UST_1 COMPARISON: None. RESULT: Right Lobe: 6.6 x 1.5 x 2.1 cm; homogeneous echogenicity, expected vascular flow. Left Lobe: 5.7 x 1.3 x 1.8 cm; homogeneous echogenicity, expected vascular flow. Isthmus: 0.2 cm Nodules: No discrete nodules seen. DIVISION OF RADIOLOGY Provider, [facility] [place] - 02/27/2024 * * *Final Report* * * DATE OF EXAM: Feb 27 2024 9:56AM WRU [id number] - US THYROID/PARATHYROID / PROCEDURE REASON: Enlarged thyroid * * * * Physician Interpretation * * * * EXAMINATION: THYROID ULTRASOUND CLINICAL HISTORY: Enlarged thyroid TECHNIQUE: Sonography and Doppler imaging of the thyroid was performed. Images were obtained and stored in a permanent archive. MQ: UST_1 COMPARISON: None. RESULT: Right Lobe: 6.6 x 1.5 x 2.1 cm; homogeneous echogenicity, expected vascular flow. Left Lobe: 5.7 x 1.3 x 1.8 cm; homogeneous echogenicity, expected vascular flow. Isthmus: 0.2 cm Nodules: No discrete nodules seen. IMPRESSION IMPRESSION: Enlarged bilateral thyroid. No discrete nodules identified. Ramp Lead: BRIAN Transcribe Date/Time: Feb 27 2024 5:11P Dictated by : LEVI GARCIA MD This examination was interpreted and the report reviewed and electronically signed by: LEVI GARCIA MD on Feb 27 2024 5:12PM EST [facility] Radiology Study observation (narrative) [facility] US Thyroid glandOrdered By: [facility] Provider on 02-27-2024 [facility] CNOVon 02-26-2024 CNOV Office Visit (FAMPWS) DAIANAEUGENE ([id number]) 1995 F [facility] Date Time Provider Department 02/26/24 5:00 PM ARTHURLOGNATALIA PARSONS During your visit today, we recorded the following information about you: Pulse Respiration Blood pressure Weight 79/minute 16/minute 114/80 62.9 kg Height 1.631 m Natalia Kevin APRN.SCREEN PRINTING MACHINE LOADER UNLOADER 02/26/2024 5:55 PM Signed 02/26/2024 Patient presents with: Establish Care SUBJECTIVE: This is a 28 year old that is here today for Above Complaints.. Hx of anxiety and OCD. Taking Effexor and Buspar which she reports work well to control her symptoms. Denies depressive symptoms PHQ9: 3 JOHANN: 11 Reports recently at dermatlogist for hx of psorisis and was found to have enlarged thryoid. Labs compelted and normal. Denies neck fullness or difficulty swallowing Heart rate elevate when running. Has recorder that says when she runs her heart rate is in the 200's Stress test about four years and was normal but she reports her heart rate did get up to 215. She reports she feels fine when running and able to carry a conversation. Admits to palpitations a couple time a month without symptoms, resolve quickly. Admits to syncopal episodes some time ago related to pain, has ot happened for some time. Denies SOB, dyspnea, or chest pain. Past medical, surgical, family, social hx, medications, allergies and health maintenance reviewed and updated PAST MEDICAL HISTORY No date: Endometriosis No date: Generalized anxiety disorder No date: OCD (obsessive compulsive disorder) ALLERGIES Patient has no allergy information on record. MEDICATIONS Current Outpatient Medications Medication Sig venlafaxine ER (EFFEXOR XR) 75 mg 24 hr capsule Take 75 mg by mouth once daily. busPIRone (BUSPAR) 10 mg tablet Take 10 mg by mouth two times a day. No current facility-administere d medications for this visit. Medications and allergies reviewed by this provider. SOCIAL HISTORY Social History Tobacco Use Smoking status: Never Smokeless tobacco: Never REVIEW OF SYSTEMS GENERAL: No weight loss, malaise or fevers HEENT: Negative for frequent or significant headaches, No changes in hearing or vision, no nose bleeds or other nasal problems NECK: Negative for neck pain. See HPI RESPIRATORY: Negative for cough, hemoptysis, wheezing, COPD, dyspnea or shortness of breath CARDIOVASCULAR: Negative for chest pain, leg swelling, hypertension, CHF - see HPI GI: No nausea, vomiting, or diarrhea : No history of dysuria, frequency or incontinence SUPERVISOR COVERING AND LINING: Negative for abnormal vaginal bleeding, abnormal vaginal discharge MUSCULOSKELETAL: Negative for joint pain or swelling, back pain or muscle pain SKIN: Negative for lesions, rash, and itching PSYCH: Negative for sleep disturbance, mood disorder and recent psychosocial stressors HEMATOLOGY/LYMPHOLOG Y: Negative for prolonged bleeding, bruising easily or swollen nodes ENDOCRINE: Negative for cold or heat intolerance, polyuria, polydipsia and goiter NEURO: No history of headaches, syncope, paralysis, seizures or tremors and fainting spells in the past in response to pain All other reviewed and negative other than HPI. OBJECTIVE: BP 114/80 Pulse 79 Resp 16 Ht 163.1 cm (5' 4.21) Wt 62.9 kg (138 lb 10.7 oz) SpO2 99% BMI 23.64 kg/m? . Vital signs reviewed by this provider. APPEARANCE Well appearing, alert, in no acute distress, well-hydrated, well nourished. EYES conjunctiva and sclera normal. EARS External ears normal, canals clear NECK Supple, no adenopathy; no bruits. Enlarged thyroid HEART RRR with normal S1 and S2, no murmurs, no gallops, no JVD appreciated LUNG clear to auscultation ABDOMEN bowel sounds normoactive, no bruits, soft, non-tender, non-distended, without organomegaly or palpable masses, no tenderness to palpation EXTREMITIES Extremities normal, No deformities, No skin discoloration, and No edema SKIN Skin color, texture, turgor normal, no suspicious rashes or lesions to exposed skin Latest Ref Rng 02/03/2024 Calcium 8.5 - 10.5 mg/dL 10.0 PTH, Intact 14 - 72 pg/mL 60 THYROID PEROXIDASE ANTIBODY <5.6 IU/mL <3.0 TSH 0.358 - 3.740 mIU/L 1.308 Free T4 0.8 - 1.5 ng/dL 1.2 Free T3 2.2 - 4.0 pg/mL 3.2 Depression Screening Never done Anxiety Screening Never done Cervical Cancer Screening Never done Covid-19 Vaccine( season) due on 02/16/2024 Influenza Vaccine(1) due on 02/16/2024 Hepatitis C Screening due on 02/25/2025 HIV Screening due on 02/25/2025 DTaP,Tdap,Td Vaccine(7 - Td or Tdap) due on 01/10/2030 Hepatitis B Vaccine Completed HPV Vaccine Completed ASSESSMENT/PLAN: 1. Encounter for medical examination to establish care - ICD9: V70.9, ICD10: Z00.00 (primary diagnosis) - Counseled on healthy diet and regular exercise - Follow up for annual exam in one year - COMPLETE BLO (more content not included)... Normal [facility] ECG COMPLETEon 02-26-2024 ECG COMPLETE Ventricular Rate : 70 BPM Atrial Rate : 70 BPM P-R Interval : 118 ms QRS Duration : 90 ms Q-T Interval : 398 ms QTC Calculation(Bazett) : 429 ms Calculated P [place] : 44 degrees Calculated R [place] : 76 degrees Calculated T [place] : 38 degrees NORMAL SINUS RHYTHM NORMAL ECG Confirmed by MD HE GREGORY () on 03/05/2024 11:28:01 AM NAME : EUGENE AHMADI PID : [id number] : 1995 Gender : Female Race : ORD : [id number] Procedure Date : Feb 26 2024 17:38:28 Edit Date : Mar 05 2024 11:28:07 Diagnosis: NORMAL SINUS RHYTHM NORMAL ECG Confirmed by MD HE GREGORY () on 03/05/2024 11:28:01 AM Test Reason : R00.0 Tachycardia Location : 185 : [facility] Overread By : MD HE GREGORY Edited By : MD HE GREGORY Referred By : NATAILA Corona CNP Acquired by : Jose Roberto WINTERS [facility] Calcium SerPl-mCncon 024 Calcium [Mass/Vol] 10.0 mg/dL Normal 8.5-10.5 [facility] Comment on above: Order Comment: Speci men Type: BLOOD SPECIMEN Ordering Facility: [facility] Address: [address], [place] [address] Performed By: #### 3 016-3, 2731-8, 3024-7, 3051-0, 14394-0 #### [facility] CLIA [id number] [address] [place] [address] [place] PTH-Intact SerPl-mCncon 01-15 Parathyrin.intact [Mass/Vol] 60 pg/mL Normal 14-72 [facility] Comment on above: Order Comment: Speci men Type: BLOOD SPECIMEN Ordering Facility: [facility] Address: [address] , [place] [address] Performed By: #### 3 016-3, 2731-8, 3024-7, 3051-0, 06648-4 #### [facility] CLIA [id number] [address] [place] [address] [place] T3Free SerPl-mCncon 02-03-20 24 Free T3 [Mass/Vol] 3.2 pg/mL Normal 2.2-4.0 [facility] Comment on above: Order Comment: Speci men Type: BLOOD SPECIMEN Ordering Facility: [facility] Address: [address] , [place] [address] Performed By: #### 3 016-3, 2731-8, 3024-7, 3051-0, 62860-3 #### [facility] CLIA [id number] [address] [place] [address] [place] T4 Free SerPl-mCncon 024 Free T4 [Mass/Vol] 1.2 ng/dL Normal 0.8-1.5 [facility] Comment on above: Order Comment: Speci men Type: BLOOD SPECIMEN Ordering Facility: [facility] Address: [address], [place] [id number] Performed By: #### 3 016-3, 2731-8, 3024-7, 3051-0, 23085-8 #### [facility] CLIA [id number] [address] [place] [address] [place] THYROID PEROXIDASE ANTIBODYo n 02-03-2024 TPO Ab Qn [IU]/mL Normal <5.6 [facility] Comment on above: Order Comment: Speci men Type: BLOOD SPECIMEN Ordering Facility: [facility] Address: [address], [place] [address] Result Comment: Thyr oid Peroxidase Antibody test is used as an aid in diagnosis of autoimmune thyroid disease. Clinical correlation is required. Performed By: #### M ICRO #### [facility] CLIA [id number] [address] [place] [address] [place] TSH SerPl-aCncon 02-03-2024 TSH Qn 1.308 m[IU]/L Normal 0.358-3.740 [facility] Comment on above: Order Comment: Speci jeffry Type: BLOOD SPECIMEN Ordering Facility: [facility] Address: [address], [place] [address] Result Comment: 3rd generation ultra sensitive TSH. Performed By: #### 3 016-3, 2731-8, 3024-7, 3051-0, 17861-9 #### [facility] CLIA [id number] [address] [place] [address] [place] Absolute lymphocyte countOrd ered By: Hailey Gimenez on 01-21-2023 Lymphocytes Auto (Unsp spec) [#/Vol] 2.31 10*3/uL 0.83-4.51 [facility] Basophil percentageOrdered B y: Hailey Gimenez on 01-21-2023 Basophils/100 WBC (Bld) 0.4 % 0-1 [facility] Bilirubin [Mass/Vol] 0.30 mg/dL 0.20-1.00 [facility] Comment on above: For patients on eltr ombopag therapy, use of Dimension [place] TBIL is not recommended. Chloride [Moles/Vol] 105 mmol/L 98-107 [facility] Eosinophils/100 WBC (Bld) 1.1 % 0-5 [facility] Glucose [Mass/Vol] 81 mg/dL 74-106 [facility] Neutrophils (Bld) [#/Vol] 5.9 10*3/uL 2.0-7.7 [facility] Neutrophils/100 WBC (Bld) 66.1 % 47-70 [facility] Potassium [Moles/Vol] 4.2 mmol/L 3.5-5.1 [facility] Protein [Mass/Vol] 7.0 g/dL 6.4-8.2 [facility] Sodium [Moles/Vol] 140 mmol/L 136-145 [facility] WBC (Bld) [#/Vol] 8.9 10*3/uL 4.4-11.0 [facility] Blood erythrocytes count (nu mber/volume)Ordered By: Hailey Gimenez on 01-21-2023 RBC (Bld) [#/Vol] 4.86 10*6/uL 4.2-5.4 [facility] Blood hemoglobin measurement (mass/volume)Ordered By: Hailey Gimenez on 01-21-2023 Hemoglobin (Bld) [Mass/Vol] 14.0 g/dL 12.0-15.0 [facility] Blood lymphocytes/100 leukoc ytesOrdered By: Hailey Gimenez on 01-21-2023 Lymphocytes/100 WBC (Bld) 26.0 % 19-41 [facility] Blood monocytes/100 leukocyt esOrdered By: Hailey Gimenez on 01-21-2023 Monocytes/100 WBC (Bld) 6.1 % 0-10 [facility] Blood platelet mean volumeOr dered By: Hailey Gimenez on 01-21-2023 Platelet mean volume (Bld) [Entitic vol] 9.5 fL 6.2-12.0 [facility] CBC W/Diff, Automatedon Absolute Lymph 2.31 X10 3/uL Normal 0.83-4.51 [facility] Comment on above: Performed By: #### L 500.4050, L501.9520, L503.0105, L100.0100 #### [facility] [address] [place], [address] Absolute Neut 5.9 X10 3/uL Normal 2.0-7.7 [facility] Comment on above: Performed By: #### L 500.4050, L501.9520, L503.0105, L100.0100 #### [facility] [address] [place], [address] Basophils/100 WBC (Bld) 0.4 % Normal 0-1 [facility] Comment on above: Performed By: #### L 500.4050, L501.9520, L503.0105, L100.0100 #### [facility] [address] [place], [address] Eosinophils/100 WBC (Bld) 1.1 % Normal 0-5 [facility] Comment on above: Performed By: #### L 500.4050, L501.9520, L503.0105, L100.0100 #### [facility] [address] [place], [address] Erythrocyte distribution width (RBC) [Ratio] 12.3 % Normal 11.6-14.6 [facility] Comment on above: Performed By: #### L 500.4050, L501.9520, L503.0105, L100.0100 #### [facility] [address] [place], [address] Hematocrit (Bld) [Volume fraction] 43.5 % Normal 37-47 [facility] Comment on above: Performed By: #### L 500.4050, L501.9520, L503.0105, L100.0100 #### [facility] [address] [place], [address] Hemoglobin (Bld) [Mass/Vol] 14.0 g/dL Normal 12.0-15.0 [facility] Comment on above: Performed By: #### L 500.4050, L501.9520, L503.0105, L100.0100 #### [facility] [address] [place], [address] IG% 0.300 Normal 0.0-0.9 [facility] Comment on above: Result Comment: IG% - Immature Granulocytes (promyelocytes, myelocytes and metamyelocytes) > 1% indicates that a LEFT SHIFT is Present. Performed By: #### L 500.4050, L501.9520, L503.0105, L100.0100 #### [facility] [address] [place], [address] Lymphocytes/100 WBC (Bld) 26.0 % Normal 19-41 [facility] Comment on above: Performed By: #### L 500.4050, L501.9520, L503.0105, L100.0100 #### [facility] [address] [place], [address] MCH (RBC) [Entitic mass] 28.8 pg Normal 27.0-32.0 [facility] Comment on above: Performed By: #### L 500.4050, L501.9520, L503.0105, L100.0100 #### [facility] [address] [place], [address] MCHC (RBC) [Mass/Vol] 32.2 g/dL Normal 32-36 [facility] Comment on above: Performed By: #### L 500.4050, L501.9520, L503.0105, L100.0100 #### [facility] [address] [place], [address] MCV (RBC) [Entitic vol] 89.5 fL Normal 81-99 [facility] Comment on above: Performed By: #### L 500.4050, L501.9520, L503.0105, L100.0100 #### [facility] [address] [place], [address] Monocytes/100 WBC (Bld) 6.1 % Normal 0-10 [facility] Comment on above: Performed By: #### L 500.4050, L501.9520, L503.0105, L100.0100 #### [facility] [address] [place], [address] Neutrophils/100 WBC (Bld) 66.1 % Normal 47-70 [facility] Comment on above: Performed By: #### L 500.4050, L501.9520, L503.0105, L100.0100 #### [facility] [address] [place], [address] Nucleated RBC (Bld) [#/Vol] 0 10*3/uL Normal 0-5 [facility] Comment on above: Performed By: #### L 500.4050, L501.9520, L503.0105, L100.0100 #### [facility] [address] [place], [address] Platelet mean volume (Bld) [Entitic vol] 9.5 fL Normal 6.2-12.0 [facility] Comment on above: Performed By: #### L 500.4050, L501.9520, L503.0105, L100.0100 #### [facility] [address] [place], [address] Platelets (Bld) [#/Vol] 321 10*3/uL Normal 150-450 [facility] Comment on above: Performed By: #### L 500.4050, L501.9520, L503.0105, L100.0100 #### [facility] [address] [place], [address] RBC (Bld) [#/Vol] 4.86 10*6/uL Normal 4.2-5.4 [facility] Comment on above: Performed By: #### L 500.4050, L501.9520, L503.0105, L100.0100 #### [facility] [address] [place], [address] RDW SD 40.5 fl Normal 35.1-43.9 [facility] Comment on above: Performed By: #### L 500.4050, L501.9520, L503.0105, L100.0100 #### [facility] [address] [place], [address] WBC (Bld) [#/Vol] 8.9 10*3/uL Normal 4.4-11.0 [facility] Comment on above: Performed By: #### L 500.4050, L501.9520, L503.0105, L100.0100 #### [facility] [address] [place], [address] [facility] 01-21-2023 Albumin [Mass/Vol] 3.9 g/dL Normal 3.2-5.0 [facility] Comment on above: Performed By: #### L 500.4050, L501.9520, L503.0105, L100.0100 #### [facility] [address] [place], [address] Albumin/Globulin [Mass ratio] 1.3 {ratio} Normal 0.9-2.4 [facility] Comment on above: Performed By: #### L 500.4050, L501.9520, L503.0105, L100.0100 #### [facility] [address] [place], [address] ALK P 73 U/L Normal 45-117 [facility] Comment on above: Performed By: #### L 500.4050, L501.9520, L503.0105, L100.0100 #### [facility] [address] [place], [address] ALT [Catalytic activity/Vol] 24 U/L Normal 13-56 [facility] Comment on above: Performed By: #### L 500.4050, L501.9520, L503.0105, L100.0100 #### [facility] [address] [place], [address] AST [Catalytic activity/Vol] 18 U/L Normal 15-37 [facility] Comment on above: Performed By: #### L 500.4050, L501.9520, L503.0105, L100.0100 #### [facility] [address] [place], [address] Bilirubin [Mass/Vol] 0.30 mg/dL Normal 0.20-1.00 [facility] Comment on above: Result Comment: For patients on eltrombopag therapy, use of Dimension [place] TBIL is not recommended. Performed By: #### L 500.4050, L501.9520, L503.0105, L100.0100 #### [facility] [address] [place], [address] BUN/CRE 12.0 RATIO Normal 10-20 [facility] Comment on above: Performed By: #### L 500.4050, L501.9520, L503.0105, L100.0100 #### [facility] [address] [place], [address] CA,Total 8.8 mg/dL Normal 8.5-10.1 [facility] Comment on above: Performed By: #### L 500.4050, L501.9520, L503.0105, L100.0100 #### [facility] [address] [place], [address] Chloride [Moles/Vol] 105 mmol/L Normal 98-107 [facility] Comment on above: Performed By: #### L 500.4050, L501.9520, L503.0105, L100.0100 #### [facility] [address] [place], [address] CO2 [Moles/Vol] 31.0 mmol/L Normal 21.0-32.0 [facility] Comment on above: Performed By: #### L 500.4050, L501.9520, L503.0105, L100.0100 #### [facility] [address] [place], [address] Creatinine [Mass/Vol] 0.67 mg/dL Normal 0.55-1.02 [facility] Comment on above: Result Comment: The validity of the calculated GFR GFRAA in patients over 70 years has not been determined. Clinical correlation is essential. Performed By: #### L 500.4050, L501.9520, L503.0105, L100.0100 #### [facility] [address] [place], [address] EST GFR - AA 139 mL/min Normal >60 [facility] Comment on above: Result Comment: Afri can Belgian GFR Calc Performed By: #### L 500.4050, L501.9520, L503.0105, L100.0100 #### [facility] [address] [place], [address] GAP 4 Low 5-15 [facility] Comment on above: Performed By: #### L 500.4050, L501.9520, L503.0105, L100.0100 #### [facility] [address] [place], [address] GFR/1.73 sq M.predicted among non-blacks MDRD (S/P/Bld) [Vol rate/Area] 115 mL/min/{1.73_m2} Normal >60 [facility] Comment on above: Result Comment: Non- GFR Calc Performed By: #### L 500.4050, L501.9520, L503.0105, L100.0100 #### [facility] [address] [place], [address] Globulin (S) [Mass/Vol] 3.1 g/dL Normal 2.2-4.2 [facility] Comment on above: Performed By: #### L 500.4050, L501.9520, L503.0105, L100.0100 #### [facility] [address] [place], [address] Glucose [Mass/Vol] 81 mg/dL Normal 74-106 [facility] Comment on above: Performed By: #### L 500.4050, L501.9520, L503.0105, L100.0100 #### [facility] [address] [place], [address] Potassium [Moles/Vol] 4.2 mmol/L Normal 3.5-5.1 [facility] Comment on above: Performed By: #### L 500.4050, L501.9520, L503.0105, L100.0100 #### [facility] [address] [place], [address] Sodium [Moles/Vol] 140 mmol/L Normal 136-145 [facility] Comment on above: Performed By: #### L 500.4050, L501.9520, L503.0105, L100.0100 #### [facility] [address] [place], [address] T PROT 7.0 g/dL Normal 6.4-8.2 [facility] Comment on above: Performed By: #### L 500.4050, L501.9520, L503.0105, L100.0100 #### [facility] [address] [place], [address] Urea nitrogen [Mass/Vol] 8 mg/dL Normal 7-18 [facility] Comment on above: Performed By: #### L 500.4050, L501.9520, L503.0105, L100.0100 #### [facility] [address] [place], [address] Determination of erythrocyte mean corpuscular volume (MCV)Ordered By: Hailey Gimenez on 01-21-2023 MCV (RBC) [Entitic vol] 89.5 fL 81-99 [facility] Hematocrit Auto (Bld) [Volum e fraction]Ordered By: Hailey Gimenez on 01-21-2023 Hematocrit (Bld) [Volume fraction] 43.5 % 37-47 [facility] - Chemistry and C hemistry - challengeOrdered By: Hailey Gimenez on 01-21-2023 ALP [Catalytic activity/Vol] 73 U/L 45-117 [facility] ALT [Catalytic activity/Vol] 24 U/L 13-56 [facility] CO2 [Moles/Vol] 31.0 mmol/L 21.0-32.0 [facility] Cobalamin (Vitamin B12) [Mass/Vol] 666 pg/mL 211-911 [facility] Globulin (S) [Mass/Vol] 3.1 g/dL 2.2-4.2 [facility] Urea nitrogen/Creatinine [Mass ratio] 12.0 mg/mg 10-20 [facility] - Hematology and Cell countsOrdered By: Hailey Gimenez on 01-21-2023 Erythrocyte distribution width (RBC) [Entitic vol] 40.5 fL 35.1-43.9 [facility] Erythrocyte distribution width (RBC) [Ratio] 12.3 % 11.6-14.6 [facility] Immature granulocytes/100 WBC (Bld) 0.300 % 0.0-0.9 [facility] Comment on above: IG% - Immature Granu locytes (promyelocytes, myelocytes and metamyelocytes) > 1% indicates that a LEFT SHIFT is Present. MCH (RBC) [Entitic mass] 28.8 pg 27.0-32.0 [facility] Nucleated RBC/100 WBC (Bld) [Ratio] 0 % 0-5 [facility] [Mass/Vol]Or dered By: Hailey Gimenez on 01-21-2023 MCHC (RBC) [Mass/Vol] 32.2 g/dL 32-36 [facility] No Panel InformationOrdered By: Hailey Gimenez on 01-21-2023 Estimated GFR (MDRD) Amer 139 mL/min >60 [facility] Comment on above: GFR Calc Estimated GFR (MDRD) Non-Af Amer 115 mL/min >60 [facility] Comment on above: Non- GFR Calc Thyroid Stimulating Hormone (TSH) 1.13 uIU/mL 0.358-3.74 [facility] Platelets bldOrdered By: Hailey Gimenez on 01-21-2023 Platelets (Bld) [#/Vol] 321 10*3/uL 150-450 [facility] Serum or plasma albumin darcie urement (mass/volume)Ordered By: Hailey Gimenez on 01-21-2023 Albumin [Mass/Vol] 3.9 g/dL 3.2-5.0 [facility] Serum or plasma albumin/glob ulin mass ratioOrdered By: Hailey Gimenez on 01-21-2023 Albumin/Globulin [Mass ratio] 1.3 {ratio} 0.9-2.4 [facility] Serum or plasma calcium darcie urement (mass/volume)Ordered By: Hailey Gimenez on 01-21-2023 Calcium [Mass/Vol] 8.8 mg/dL 8.5-10.1 [facility] Serum or plasma creatinine m easurement (mass/volume)Ordered By: Hailey Gimenez on 01-21-2023 Creatinine [Mass/Vol] 0.67 mg/dL 0.55-1.02 [facility] Comment on above: The validity of the calculated GFR & GFRAA in patients over 70 years has not been determined. Clinical correlation is essential. Serum or plasma urea nitroge n measurement (mass/volume)Ordered By: Hailey Gimenez on 01-21-2023 Urea nitrogen [Mass/Vol] 8 mg/dL 7-18 [facility] Thin prep Papanicolaou smear with manual screeningOrdered By: Hailey Gimenez on 01-21-2023 Thin prep Papanicolaou smear with manual screening 18 U/L 15-37 [facility] Thin prep Papanicolaou smear with manual screening 4 5-15 [facility] Thyroid Stim Hormone (TSH)on 01-21-2023 TSH 1.13 uIU/mL Normal 0.358-3.74 [facility] Comment on above: Performed By: #### L 500.4050, L501.9520, L503.0105, L100.0100 #### [facility] [address] [place], [place], [address] Vitamin B12on 01-21-2023 Cobalamin (Vitamin B12) [Mass/Vol] 666 pg/mL Normal 211-911 [facility] Comment on above: Performed By: #### L 500.4050, L501.9520, L503.0105, L100.0100 #### [facility] [address] [place], [place], [address] Vital Signs Date Time Vital Sign Value Performing Clinician Vielka hazel 10-29-2024 18:49-0400 Body mass index (BMI) [Ratio] 28.25 kg/m2 Tamanna Alcala APRN.EARLINE Work Phone: [facility] 10-29-2024 18:49-0400 Body weight 77 kg Tamanna Alcala APRN.SCREEN PRINTING MACHINE LOADER UNLOADER Work Phone: [facility] 10-29-2024 18:49-0400 Diastolic blood pressure 73 mm[Hg] Tamanna Alcala APRN.SCREEN PRINTING MACHINE LOADER UNLOADER Work Phone: [facility] 10-29-2024 18:49-0400 Heart rate 105 /min Tamanna Alcala APRN.SCREEN PRINTING MACHINE LOADER UNLOADER Work Phone: [facility] 10-29-2024 18:49-0400 Systolic blood pressure 122 mm[Hg] Tamanna Alcala APRN.SCREEN PRINTING MACHINE LOADER UNLOADER Work Phone: [facility] 02-26-2024 16:50-0400 Body height 163.1 cm Natalia Kevin APRN.SCREEN PRINTING MACHINE LOADER UNLOADER Work Phone: [facility] 02-26-2024 16:50-0400 Body mass index (BMI) [Ratio] 23.64 kg/m2 Natalia Podlogar NETWORK PRICING CONSULTANT.SCREEN PRINTING MACHINE LOADER UNLOADER Work Phone: [facility] 02-26-2024 16:50-0400 Body weight 62.9 kg Natalia Podlogar NETWORK PRICING CONSULTANT.SCREEN PRINTING MACHINE LOADER UNLOADER Work Phone: [facility] 02-26-2024 16:50-0400 Diastolic blood pressure 80 mm[Hg] Natalia Podlogar NETWORK PRICING CONSULTANT.SCREEN PRINTING MACHINE LOADER UNLOADER Work Phone: [facility] 02-26-2024 16:50-0400 Heart rate 79 /min Natalia Podlogar NETWORK PRICING CONSULTANT.SCREEN PRINTING MACHINE LOADER UNLOADER Work Phone: [facility] 02-26-2024 16:50-0400 Respiratory rate 16 /min Natalia Podlogar NETWORK PRICING CONSULTANT.SCREEN PRINTING MACHINE LOADER UNLOADER Work Phone: [facility] 02-26-2024 16:50-0400 SaO2% (BldA) [Mass fraction] 99 % Natalia Podlogar NETWORK PRICING CONSULTANT.SCREEN PRINTING MACHINE LOADER UNLOADER Work Phone: [facility] 02-26-2024 16:50-0400 Systolic blood pressure 114 mm[Hg] Natalia Podlogar NETWORK PRICING CONSULTANT.SCREEN 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 MACHINE LOADER UNLOADER Work Phone: [facility] 05-31-2021 11:37-0500 Body height 165.1 cm Juan Valentino MD Work Phone: [facility] 05-31-2021 11:37-0500 Body mass index (BMI) [Ratio] 23.46 kg/m2 Juan Valentino MD Work Phone: [facility] 05-31-2021 11:37-0500 Body weight 63.96 kg Juan Valentino MD Work Phone: [facility] 05-31-2021 11:37-0500 Diastolic blood pressure 81 mm[Hg] Juan Valentino MD Work Phone: [facility] 05-31-2021 11:37-0500 Systolic blood pressure 129 mm[Hg] Juan Valentino MD Work Phone: [facility] Encounters Encounter Date Encounter Type Care Provider Facility Start: 11-13-2024 End: 11-13-2024 Telephone encounter Gilberto Rivera RN Work Phone: MR Comment on above: Breast Feeding; Foll ow Up Phone Call Start: 11-09-2024 End: 11-11-2024 Evaluation and management of inpatient CARIDAD WHEELER Facility:[id number] Start: 11-05-2024 End: 11-05-2024 ambulatory STEPH GRAJEDA Facility:[id number] Start: 10-29-2024 End: 10-29-2024 Patient encounter procedure Tamanna Alcala APRN.CNP Work Phone: [facility] [place] Comment on above: Need for vaccination (Primary Dx) Start: 10-29-2024 End: 10-29-2024 ambulatory TAMANNA ALCALA Facility:[facility] Start: 09-24-2024 End: 09-28-2024 Telephone encounter Caridad Wheeler MD Work Phone: Family [facility] [place] Comment on above: Faxed Documents Start: 09-15-2024 End: 09-15-2024 Refill Caridad Wheeler MD Work Phone: [facility] [place] Comment on above: Encounter not needed Start: 09-11-2024 End: 09-11-2024 Refill Caridad Wheeler MD Work Phone: [facility] [place] Comment on above: Refill Request Start: 08-31-2024 End: 08-31-2024 Emergency department patient visit BECCA VILLANUEVA Facility:[id number] Start: 08-12-2024 End: 08-12-2024 ambulatory CARIDAD WHEELER Facility:[facility] Start: 05-12-2024 End: 05-12-2024 ambulatory BROOKE MENDENHALL Facility:[id number] Start: 04-30-2024 End: 04-30-2024 ambulatory TAMANNA ELLIS Facility:[id number] Start: 03-03-2024 End: 03-03-2024 Telephone encounter Natalia Kevin APRN.SCREEN PRINTING MACHINE LOADER UNLOADER Work Phone: [facility] [place] Comment on above: Results Start: 02-27-2024 End: 02-27-2024 Telephone encounter Caridad Wheeler MD Work Phone: [facility] [place] Comment on above: Results Start: 02-27-2024 End: 02-27-2024 ambulatory NATALIA PODLOGAR Facility:[facility] Start: 02-27-2024 End: 02-27-2024 Subsequent hospital visit by physician [facility] Work Phone: Radiology Comment on above: Enlarged thyroid [E0 4.9] Start: 02-26-2024 End: 02-26-2024 Patient encounter procedure Natalia Kevin APRN.SCREEN PRINTING MACHINE LOADER UNLOADER Work Phone: [facility] [place] Comment on above: Encounter for medica l examination to establish care (Primary Dx); Tachycardia; Enlarged thyroid; Screening for depression; Encounter for screening examination for other mental health and behavioral disorders; JOHANN (generalized anxiety disorder) Start: 02-26-2024 End: 02-26-2024 Patient encounter status Natalia Kevin APRN.SCREEN PRINTING MACHINE LOADER UNLOADER Work Phone: [facility] Start: 02-26-2024 End: 02-26-2024 ambulatory NATALIA PODLOGAR Facility:[facility] Start: 02-26-2024 Encounter for genera l adult medical examination without abnormal findings NATALIA PODLOGAR [facility] Start: 02-03-2024 End: 02-03-2024 ambulatory TAMANNA ELLIS Facility:[id number] Start: 02-01-2024 ambulatory NATALIA PODLOGAR Facility :[facility] Start: 02-21-2023 Telephone encounter Cliff solano MD Work Phone: Occupational Health Comment on above: [facility] Start: 02-20-2023 Telephone encounter Cliff solano MD Work Phone: Occupational Health Comment on above: [facility] Start: 01-21-2023 End: 01-21-2023 Patient encounter procedure [facility] Start: 01-21-2023 End: 01-21-2023 ambulatory Hailey Gimenez [facility] Work Phone: Start: 07-06-2021 [facility] Start: 06-05-2021 ambulatory SHIJAVIMINI [facility] Ambulatory Start: 06-01-2021 Documentation procedure Corbin pina CMA [facility] Comment on above: Prior Auth (Celecoxi b) Start: 05-31-2021 End: 05-31-2021 ambulatory [facility] Start: 05-31-2021 End: 05-31-2021 Office outpatient new 45 minutes Juan Valentino MD Work Phone: [facility] Physician [facility] Comment on above: Endometriosis; Dysmenorrhea Start: 03-08-2021 Transcribe Orders Juan Valentino MD Work Phone: [facility] Physician [facility] Comment on above: Endometriosis (Prima ry Dx) Procedures Date Procedure Procedure Detail Performing Clinician Start: 11-09-2024 Antibody screen NOLA ELLIS Comment on above: Order Comment: Speci men Type: BLOOD SPECIMEN Ordering Facility: [facility] Address: [facility] [place] [address] Performed By: #### 3 016-3, 2731-8, 3024-7, 3051-0, 46512-3 #### [facility] CLIA [id number] [address] [place] [address] Start: 04-30-2024 Antibody screen NOLA ELLIS Comment on above: Order Comment: Speci men Type: BLOOD SPECIMEN Ordering Facility: [facility] Address: [facility] [place] [address] Performed By: #### 3 016-3, 2731-8, 3024-7, 3051-0, 96820-3 #### [facility] CLIA [id number] [address] [place] [address] [place] Start: 02-27-2024 Us soft tissue head & neck real time imge docm Natalia Kevin APRN.EARLINE Work Phone: Start: 02-26-2024 Adult depression scr eening assessment Natalia Kevin APRN.EARLINE Work Phone: Plan of Treatment Date Care Activity Detail Author Start: 10-29-2034 Urine microalbumin profile DTaP,Tdap,Td Vaccine (8 - Td or Tdap) [facility] Start: 01-10-2030 Tetanus vaccination Tetanus: Every 1 0yrs [facility] Start: 01-10-2030 Urine microalbumin profile DTaP,Tdap,Td Vaccine (7 - Td or Tdap) [facility] Start: 02-25-2025 Anxiety Screening Anxiety Screening [facility] Start: 02-25-2025 Depression Screening Depression Scre shannaning [facility] Start: 02-25-2025 Hepatitis C screening Hepatitis C Mt alex [facility] Comment on above: Postponed from 12/16 (Declined at this time) Start: 02-25-2025 HIV screening HIV Screening [facility] Comment on above: Postponed from 12/16 (Declined at this time) Start: 02-27-2024 End: 02-27-2024 Patient encounter procedure 02/27/2024 10:00 AM EDT Appointment Radiology [address] [place] [address] Enlarged thyroid [E04.9] Radiology Comment on above: Enlarged thyroid [E0 4.9] Start: 02-26-2024 End: 05-27-2024 CBC W Auto Differential panel - Blood COMPLETE BLOOD COUNT AND DIFFERENTIAL Lab Routine Encounter for medical examination to establish care Expected: 02/26/2024, Expires: 05/27/2024 [facility] Comment on above: Expected: 02/26/2024 , Expires: 05/27/2024 Start: 02-26-2024 End: 05-27-2024 Comprehensive metabolic 2000 panel - Serum or Plasma COMPREHENSIVE METABOLIC PANEL Lab Routine Encounter for medical examination to establish care Expected: 02/26/2024, Expires: 05/27/2024 [facility] Comment on above: Expected: 02/26/2024 , Expires: 05/27/2024 Start: 02-16-2024 Covid-19 Vaccine ( season) Covid-19 Vaccine ( season) [facility] Start: 02-16-2024 Covid-19 Vaccine () Covid-19 Vaccine () [facility] Start: 02-16-2024 Influenza vaccination Influenza Vacc ine (#1) [facility] Start: 02-20-2023 End: 03-06-2023 SARS-CoV-2 (COVID-19) RNA [Presence] in Respiratory specimen by JOHNSON with probe detection [facility] Work Phone: Comment on above: Expected: 02/20/2023 , Expires: 03/06/2023 Start: 02-15-2023 Influenza vaccination INFLUENZA (#1) [facility] Start: 06-17-2022 DEPRESSION ASSESSMENT DEPRESSION ASS ESSMENT [facility] Start: 09-04-2021 End: 09-04-2021 Telemedicine consultation with patient 09/04/2021 Telemedicine Gynecology Juan Valentino MD [address] [place] [address] [facility] Start: 05-31-2021 End: 05-31-2021 Patient encounter procedure 05/31/2021 Office Visit Gynecology Juan Valentino MD [address] [place] [address] [facility] Start: 02-15-2021 Influenza vaccination Sequenti al Influenza Vaccine (#1) [facility] Start: 02-01-2021 COVID-19 Vaccine (3 - Booster for Moderna series) COVID-19 Vaccine (3 - Booster for Moderna series) [facility] Start: 2018 PAP TESTING PAP TESTING [facility] Start: 2018 Screening for malign ant neoplasm of cervix Cervical Cancer Screening [facility] Start: 2016 Urine microalbumin profile DTAP,TDAP,TD (1 - Tdap) [facility] Start: 12-17-2015 Hepatitis C screening Hepatitis C [facility] Start: 12-17-2015 HEPATITIS C SCREENING HEPATITIS C [facility] Start: 12-17-2015 HIV SCREENING HIV SCREENING [facility] Start: 2012 HIV screening HIV Screening [facility] Start: 01-22-2012 Vaccination for kyle n papillomavirus HPV Vaccines (2 - 2-dose series) [facility] Start: 12-17-2011 PEDS TO ADULT TRANSI TION ANNUAL ASSESSMENT PEDS TO ADULT TRANSITION ANNUAL ASSESSMENT [facility] Start: 2009 COVID-19 Vaccine (1) COVID-19 Vaccin e (1) [facility] Start: 2009 Depression screening using PHQ-9 (Patient Health Questionnaire 9) score [facility] Start: 2009 PEDS TO ADULT TRANSI TION INITIAL DISCUSSION PEDS TO ADULT TRANSITION INITIAL DISCUSSION [facility] Start: 2008 Vaccination for kyle n papillomavirus HPV Vaccines (1 - 2-dose series) [facility] Start: 2006 HPV VACCINE (1 - 2-d ose series) HPV VACCINE (1 - 2-dose series) [facility] Start: 2000 History and physical examination, annual for health maintenance Wellness Visit [facility] Start: 1997 HEPATITIS B (1 of 3 - 3-dose series) HEPATITIS B (1 of 3 - 3-dose series) [facility] Start: 1997 Screening for Chlamy melisa trachomatis Chlamydia Screening [facility] Start: 1997 Screening for malign ant neoplasm of cervix Pap Smear [facility] Start: 1997 Tetanus vaccination Tetanus: Every 1 0yrs [facility] ECG COMPLETE ECG COMPLETE ECG Routine Tachycardia Ordered: 02/26/2024 [facility] Work Phone: Comment on above: Ordered: 02/26/2024 End: 03-27-2025 US Thyroid gland US THYROID/PARATHYROID Radiology Routine Enlarged thyroid 1 Occurrences starting 02/26/2024 until 03/27/2025 [facility] Comment on above: 1 Occurrences starti ng 02/26/2024 until 03/27/2025 Immunizations Immunization Date Immunization Notes Care Provider Peggy graves 10-29-2024 tetanus toxoid, redu inidgo diphtheria toxoid, and acellular pertussis vaccine, adsorbed Tamanna Knoble NETWORK PRICING CONSULTANT.SCREEN PRINTING MACHINE LOADER UNLOADER Work Phone: [facility] 03-27-2024 influenza, seasonal, injectable, preservative free Caridad Wheeler MD Work Phone: [facility] 03-21-2023 influenza virus vaccine, unspecified formulation Natalia Podlogar NETWORK PRICING CONSULTANT.SCREEN PRINTING MACHINE LOADER UNLOADER Work Phone: [facility] 07-24-2011 HPV, unspecified formulation Corbin Soto [facility] 01-02-2011 human papilloma viru s vaccine, quadrivalent Natalia Podlogar NETWORK PRICING CONSULTANT.SCREEN PRINTING MACHINE LOADER UNLOADER Work Phone: [facility] Payers Date Payer Category Payer Private Health Insurance [id number] 2023 Unknown [id number] 2023 Self-pay [id number] 2020 Unknown ANTHEM ANTHEM BLUE/PREF/HMO/PPO [id number] 2020-Present [phone] [id number] [place] [address] [id number] 2020 Unknown ANTHEM ANTHEM BLUE/PREF/HMO/PPO [id number] 2020-Present [phone] [id number] [place], [place] [address] [id number] 2015 Unknown [id number] 2015 Unknown [id number] 1997 Unknown [id number] 1997 Unknown [id number] 1997 Unknown [id number] Unknown [id number] Social History Date Type Detail Facility Start: 06-11-2019 Tobacco smoking status MOIS Tobacco smoking consumption unknown [facility] Start: 1995 Sex Assigned At Not on file [facility] Start: 05-31-2021 End: 02-26-2024 Tobacco smoking status MOIS Never smoked tobacco [facility] Start: 05-31-2021 End: 02-26-2024 Tobacco use and exposure Smokeless tobacco non-user [facility] Start: 05-31-2021 End: 02-26-2024 Alcohol intake Current drinker of alcohol (finding) [facility] Start: 05-31-2021 History SDOH Alcohol Comment Occasionally [facility] Exposure to SARS-CoV -2 (event) Not sure [facility] Start: 1995 Sex Assigned At Female [facility] Start: 04-30-2018 Non-smoker [facility] Start: 02-25-2024 End: 02-26-2024 Gender identity Not on file [facility] Start: 02-25-2024 End: 02-26-2024 History of Social function [facility] Has the [employer], [employer], or water [employer] threatened to shut off services in your home in past 12Mo No [facility] Attends Club or Organization Meetings Not on file [facility] Are you now , , , , never or living with a partner? [facility] How often to you hav e a drink containing alcohol? 2-4 times a month [facility] How many standard dr inks containing alcohol do you have on a typical day? 1 or 2 [facility] How often do you hav e 6 or more drinks on 1 occasion? Never [facility] Do you feel stress - tense, restless, nervous, or anxious, or unable to sleep at night because your mind is troubled all the time - these days [OSQ] To some extent [facility] (I/We) worried whesayda er (my/our) food would run out before (I/we) got money to buy more. Never true [facility] Start: 02-26-2024 Alcohol Comment occasionaly [facility] Start: 08-31-2024 End: 11-09-2024 Alcoholic beverage intake Ex-drinker (finding) [facility] Start: 03-10-2024 [facility] Start: 11-09-2024 Gender identity Identifies as female gender (finding) [facility] Start: 11-09-2024 Sexual orientation Heterosexual (finding) [facility] Goals Date Patient Goal Desired Activity /State Personal health goal Functional Status Date Assessment Result Facility 11-11-2024 Are you deaf, or do you have serious difficulty hearing No 11/11/2024 3:41 PM Alma Potts LPN No [facility] 11-11-2024 Are you blind, or do you have serious difficulty seeing, even when wearing glasses No 11/11/2024 3:41 PM Alma Potts LPN No [facility] 11-11-2024 Do you have serious difficulty walking or climbing stairs No 11/11/2024 3:41 PM Alma Potts LPN No [facility] 11-11-2024 Do you have difficul ty dressing or bathing No 11/11/2024 3:41 PM Alma Potts LPN No [facility] 11-11-2024 Because of a physica l, mental, or emotional condition, do you have difficulty doing errands alone such as visiting a physician's office or shopping No 11/11/2024 3:41 PM Alma Potts LPN No [facility] 08-31-2024 Are you deaf, or do you have serious difficulty hearing No 08/31/2024 4:34 PM Mckenzie Corbin RN No [facility] 08-31-2024 Are you blind, or do you have serious difficulty seeing, even when wearing glasses No 08/31/2024 4:34 PM Mckenzie Corbin RN No [facility] 08-31-2024 Do you have serious difficulty walking or climbing stairs No 08/31/2024 4:34 PM Mckenzie Corbin RN No [facility] 08-31-2024 Do you have difficul ty dressing or bathing No 08/31/2024 4:34 PM EDT Mckenzie Phelps, MEGHAN No [facility] 08-31-2024 Because of a physica l, mental, or emotional condition, do you have difficulty doing errands alone such as visiting a physician's office or shopping No 08/31/2024 4:34 PM EDT Mckenzie Phelps RN No [facility] Mental Status Date Assessment Result Facility 11-11-2024 Because of a physica l, mental, or emotional condition, do you have serious difficulty concentrating, remembering, or making decisions No 11/11/2024 3:41 PM EDT Alma Tinajero LPN No [facility] 08-31-2024 Because of a physica l, mental, or emotional condition, do you have serious difficulty concentrating, remembering, or making decisions No 08/31/2024 4:34 PM EDT Mckenzie Phelps RN No [facility] Clinical Notes 05-31-2021 to 11-13-2024 Gilberto Rivera RN - 11/13/2024 11:32 AM Gilberto Navarro RN - 11/13/2024 11:32 AM EDSusan Olmedo RN - 09/24/2024 3:16 PM EDT Note Date & Type Note Facility 11-13-2024 Nurse Note OB Post Discharge Patient Call Back: Date: 11/13/2024 Patient Name: Eugene Ahmadi : 1995 Delivery Summary: Nina Ahmadi [[id number]] Delivery Information: Delivery Date: 11/09/24 Delivery type: Vaginal, Spontaneous Delivering Clinician: Steph Grajeda MD Vacuum Used: No Forceps Used: No Shoulder Dystocia Present: No Lacerations: 2nd, Labial Episiotomy: None : Gender: Female Weight (grams): 3170 g One Minute : 8 Five Minute : 8 Patient was contacted after her inpatient discharge from [facility]. She reported the following as it relates to her recovery and hospital experience: General Physical: We discussed how she was doing physically. She reported the following: Bleeding: moderate Pain: mild and moderate Other Signs or Symptoms: No Overall Mood: Patient was informed that Baby Blues are feelings of sadness that a woman may experience in the first few days after having a baby. Baby Blues can happen 2-3 days after delivery and can last up to two weeks. These feelings usually go away on their own and does not require treatment. Tell your doctor if you have sad feelings that last longer than two weeks. He/she may want to check you for a more serious condition called Post Depression (PPD). This can occur as early as one week and up to one year after giving . PPD warning signs include: Thinking of hurting yourself of your baby Feeling out of control, unable to care for self or baby Feeling depressed or sad most of the day every day Having trouble sleeping or sleeping too much Having trouble bonding with your baby Safe Sleep: I reviewed safe sleep environments for infants and the ABC's (alone back crib) for sleeping with the patient. She reported the following. The (s) sleeps in: Bassinet Baby in need of a crib/[id number]-[id number]-Gimv: No Baby's feeding: Method: Human milk only. Breast Feeding Problems: Seeing analysis consultant, scheduled for today in [place] Frequency: Within Normal Limits Education: N/A Baby's elimination habits: Average wet diapers: Within Normal Limits Average dirty diapers: Within Normal Limits Education: N/A Follow-up appointments: Scheduled appointment with a cognos consultant: Yes Scheduled a follow up appointment with OB provider: Yes Suggestions/Concerns: Things that could have been done better during your stay: N/A Current concerns: N/A Referral(s): Patient referred to: N/A Gilberto Rivera RN [facility] Work Phone: 11-13-2024 Nurse Note OB Post Discharge Patient Call Back: Date: 11/13/2024 Patient Name: Eugene Ahmadi : 1995 Delivery Summary: Nina Ahmadi [[id number]] Delivery Information: Delivery Date: 11/09/24 Delivery type: Vaginal, Spontaneous Delivering Clinician: Steph Grajeda MD Vacuum Used: No Forceps Used: No Shoulder Dystocia Present: No Lacerations: 2nd, Labial Episiotomy: None [place]: Gender: Female Weight (grams): 3170 g One Minute : 8 Five Minute : 8 Patient was contacted after her inpatient discharge from [facility]. She reported the following as it relates to her recovery and hospital experience: General Physical: We discussed how she was doing physically. She reported the following: Bleeding: moderate Pain: mild and moderate Other Signs or Symptoms: No Overall Mood: Patient was informed that Baby Blues are feelings of sadness that a woman may experience in the first few days after having a baby. Baby Blues can happen 2-3 days after delivery and can last up to two weeks. These feelings usually go away on their own and does not require treatment. Tell your doctor if you have sad feelings that last longer than two weeks. He/she may want to check you for a more serious condition called Post Depression (PPD). This can occur as early as one week and up to one year after giving . PPD warning signs include: Thinking of hurting yourself of your baby Feeling out of control, unable to care for self or baby Feeling depressed or sad most of the day every day Having trouble sleeping or sleeping too much Having trouble bonding with your baby Safe Sleep: I reviewed safe sleep environments for infants and the ABC's (alone back crib) for sleeping with the patient. She reported the following. The infant(s) sleeps in: Bassinet Baby in need of a crib/Dtki-izk-Frub: No Baby's feeding: Method: Human milk only. Breast Feeding Problems: Seeing analysis consultant, scheduled for today in [place] Frequency: Within Normal Limits Education: N/A Baby's elimination habits: Average wet diapers: Within Normal Limits Average dirty diapers: Within Normal Limits Education: N/A Follow-up appointments: Scheduled appointment with a cognos consultant: Yes Scheduled a follow up appointment with OB provider: Yes Suggestions/Concerns: Things that could have been done better during your stay: N/A Current concerns: N/A Referral(s): Patient referred to: N/A Gilberto Rivera RN documented in this encounter [facility] 11-11-2024 Note HNO ID: [id number] Author: BROOKE MENDENHALL MD Service: Obstetrics Author Type: Physician Type: Progress Notes Filed: 11/11/2024 08:34 Note Text: OBSTETRICS PROGRESS NOTE SERVICE DATE: November 11, 2024 SERVICE TIME: 832 28 year old female who is Day #2 status post Vaginal, Spontaneous delivery with female . Assessment AND Plan labor in third trimester with delivery (HCC) Doing well. Home today. Routine care. . Discharge instructions given to patient regarding pelvic rest, bathing, stairs, walking, lifting, driving, and follow-up. Patient expresses understanding. Plan of care discussed with: Provider, RN, Patient. Anticipate discharge day: PPD #2 Subjective Patient has no current complaints. Tolerating PO intake. Urinating without difficulty. Passing flatus. Pain well controlled with current regimen. Lochia decreasing. Ambulating without difficulty. Objective PHYSICAL EXAM: Heart: RR, S1, S2 Lungs: clear to auscultation LAST VITALS: Pulse BP Resp O2 Sat Temp Pain 63 119/69 16 99 % 36.3 ?C (97.4 ?F) 5 Avg Min Max Vitals (last 12 hours) Flowsheet Row Name Average Min Max BP: Systolic 117 115 119 BP: Diastolic 67 65 69 Temp 36.6 ?C (97.9 ?F) 36.3 ?C (97.4 ?F) 36.9 ?C (98.4 ?F) Pulse 66.5 63 70 Resp 17 16 18 SpO2 98.5 % 98 % 99 % HT/WT/BMI: Height Weight BMI 165.1 cm (5' 5) 77.1 kg (170 lb) 28.29 LABS ABO/RH: 11/09/2024: O; Positive RUBELLA: 04/30/2024: Positive HANDH: Hematocrit (%) Date Value 11/10/2024 34.6 11/09/2024 38.8 Hemoglobin (g/dL) Date Value 11/10/2024 11.4 11/09/2024 13.1 Diagnostic tests reviewed for today's visit: Most recent labs SIGNATURE: Brooke Mendenhall MD PATIENT NAME: Eugene Ahmadi DATE: November 11, 2024 TIME: 8:33 AM [facility] 11-10-2024 Note HNO ID: [id number] Author: CHE MENEZES APRN.CRNA Service: Anesthesiology Author Type: Nurse Loan Coordinator Type: Progress Notes Filed: 11/10/2024 08:23 Note Text: Attestation signed by Brandon Herbert DO at 11/10/2024 9:02 AM I reviewed and agree with the assessment as documented above. SIGNATURE: Brandon Herbert DO DATE: November 10, 2024 TIME: 9:02 AM Pt denies any complaints after epidural anesthesia. [facility] 11-10-2024 Note HNO ID: [id number] Author: TAMANNA ELLIS MD Service: Obstetrics Author Type: Physician Type: Progress Notes Filed: 11/10/2024 08:04 Note Text: OBSTETRICS PROGRESS NOTE SERVICE DATE: November 10, 2024 SERVICE TIME: 8:02 AM 28 year old female who is Day #1 status post Vaginal, Spontaneous delivery with female . Assessment AND Plan labor in third trimester with delivery (HCC) Routine care. Plan of care discussed with: Provider, RN, Patient. Anticipate discharge day: PPD #1 Subjective Patient has no current complaints. Tolerating PO intake. Urinating without difficulty. Passing flatus. Pain well controlled with current regimen. Lochia decreasing. Ambulating without difficulty. Objective PHYSICAL EXAM: LAST VITALS: Pulse BP Resp O2 Sat Temp Pain 96 105/62 18 98 % 36.6 ?C (97.8 ?F) 2 Avg Min Max Vitals (last 12 hours) Flowsheet Row Name Average Min Max BP: Systolic 105 105 105 BP: Diastolic 62 62 62 Temp 36.6 ?C (97.8 ?F) 36.6 ?C (97.8 ?F) 36.6 ?C (97.8 ?F) Pulse 96 96 96 Resp 18 18 18 SpO2 98 % 98 % 98 % HT/WT/BMI: Height Weight BMI 165.1 cm (5' 5) 77.1 kg (170 lb) 28.29 LABS ABO/RH: 11/09/2024: O; Positive RUBELLA: 04/30/2024: Positive HANDH: Hematocrit (%) Date Value 11/10/2024 34.6 11/09/2024 38.8 Hemoglobin (g/dL) Date Value 11/10/2024 11.4 11/09/2024 13.1 Diagnostic tests reviewed for today's visit: Most recent labs SIGNATURE: Tamanna Ellis MD PATIENT NAME: Eugene Ahmadi DATE: November 10, 2024 TIME: 8:02 AM [facility] 11-09-2024 Note HNO ID: [id number] Author: TIFFANIE ANDREWS APRN.TARIFF COMPILING CLERK Service: Anesthesiology Author Type: Nurse Loan Coordinator Type: Anesthesia Procedure Notes Filed: 11/09/2024 04:23 Note Text: ANESTHESIOLOGY PROCEDURE NOTE Epidural Block General Information Procedure Start Time/Medication Administration: 11/09/2024 4:00 AM Procedure End time: 11/09/2024 4:19 AM Patient location during procedure: [facility] room Informed Consent Consent Obtained: Written [place] Protocol A moment to CARE was completed. SIGN IN Personnel directly involved with the procedure wore the appropriate PPE. Special Equipment: N/A Patient/Surrogate Stated/Verified: Patient name, Date of , Relevant allergies and Intended procedure TIME OUT Relevant labs, photos, and/or imaging studies have been reviewed. Intended patient and procedure match source documents. Consent obtained and matches the intended procedure. Correct side/site marked and visible. Medications required for procedure verified. No fire risk assessment and interventions applicable. No implant(s) inserted. Reason for block: labor epidural Staffing Anesthesiologist: Rafael Frazier DO TARIFF COMPILING CLERK: Tiffanie Andrews APRN.TARIFF COMPILING CLERK Performed by: TARIFF COMPILING CLERK Preparation Sterility Preparation: hand hygiene performed prior to procedure, sterile gloves, drapes, and procedure tray, surgical cap used, mask used, sterile drape used during line insertion, skin prep agent completely dried prior to procedure Sterility Technique Not Completely Performed Due to Extreme Emergency: No Site Prep: Chloraprep Procedure Details Patient position: sitting Ultrasound Guided: No Patient monitoring: Pulse OX and NIBP Approach: midline Injection technique: BARBARA saline Region: lumbar Estimated Interspace: 4-5 Number of Attempts: 1 Needle and Epidural Catheter Needle type: Tuohy Needle gauge: 17G Needle length: 3.5 in Needle insertion depth: 6 cm Catheter Catheter type: end hole Catheter size: 19 G Catheter at skin depth: 15 cmTest Dose Response: negative Assessment Events: tolerated well without discomfort SIGN OUT No specimen collected. All instruments, equipment, possible retained foreign bodies accounted for. Comments LOT [id number] EXP. 06/16/2025 SIGNATURE: Tiffanie Andrews APRN.TARIFF COMPILING CLERK PATIENT NAME: Eugene Ahmadi DATE: November 09, 2024 TIME: 4:22 AM CSN: [id number] [facility] 09-24-2024 Telephone encounter Note Patient calling and stating that her former PCP office which is closing is going to be faxing over her medical records. Patient just wanting to give heads up. Susan Pereyra RN [facility] 09-24-2024 Miscellaneous Notes Patient calling and stating that her former PCP office which is closing is going to be faxing over her medical records. Patient just wanting to give heads up. Susan Pereyra RN documented in this encounter [facility] 09-11-2024 Telephone encounter Note Please send to: [facility] Patient has been identified by name and date of : Yes, Patient phones for refill(s): Requested Prescriptions Pending Prescriptions Disp Refills busPIRone (BUSPAR) 10 mg tablet 180 tablet 1 Sig: Take 1 tablet by mouth two times a day. venlafaxine ER (EFFEXOR XR) 75 mg 24 hr capsule 90 capsule 1 Sig: Take 1 capsule by mouth once daily. Date of last office visit in primary care: 02/26/2024 Date of next office visit in primary care: Visit date not found Please advise. Thank you. Natalia Smith. [facility] 09-11-2024 Miscellaneous Notes Please send to: [facility] Patient has been identified by name and date of : Yes, Patient phones for refill(s): Requested Prescriptions Pending Prescriptions Disp Refills busPIRone (BUSPAR) 10 mg tablet 180 tablet 1 Sig: Take 1 tablet by mouth two times a day. venlafaxine ER (EFFEXOR XR) 75 mg 24 hr capsule 90 capsule 1 Sig: Take 1 capsule by mouth once daily. Date of last office visit in primary care: 02/26/2024 Date of next office visit in primary care: Visit date not found Please advise. Thank you. Natalia Smith. documented in this encounter [facility] 03-03-2024 Telephone encounter Note Pt notified of results via [facility]. Nicole Sterling Ma [facility] 03-03-2024 Miscellaneous Notes Pt notified of results via [facility]. Nicole Sterling Ma ----- Message from Natalia Kevin APRN.SCREEN PRINTING MACHINE LOADER UNLOADER sent at 03/03/2024 7:10 AM EDT ----- Thyroid shows enlargement. No nodules. Will continue to monitor TSH. No further work-up at this time. Natalia Kevin APRN.SCREEN PRINTING MACHINE LOADER UNLOADER documented in this encounter [facility] 03-03-2024 Telephone encounter Note ----- Message from Natalia Kevin APRN.SCREEN PRINTING MACHINE LOADER UNLOADER sent at 03/03/2024 7:10 AM EDT ----- Thyroid shows enlargement. No nodules. Will continue to monitor TSH. No further work-up at this time. Natalia Kevin APRN.SCREEN PRINTING MACHINE LOADER UNLOADER [facility] 02-27-2024 Telephone encounter Note Pt notified of results and recommendations below from Provider via [facility]. Twyla Ga MA [facility] 02-27-2024 Miscellaneous Notes Pt notified of results and recommendations below from Provider via [facility]. Twyla aG MA ----- Message from Caridad Wheeler MD sent at 02/27/2024 11:30 AM EDT ----- Normal labs. No change in regimen. documented in this encounter [facility] 02-27-2024 Telephone encounter Note ----- Message from Caridad Wheeler MD sent at 02/27/2024 11:30 AM EDT ----- Normal labs. No change in regimen. [facility] 02-27-2024 History of Presen t illness Narrative Radiology Service Progress Note PATIENT NAME: Eugene Ahmadi DATE OF SERVICE: February 27, 2024 TIME: 9:57 AM PATIENT IDENTITY VERIFICATION COMPLETED USING TWO (2) IDENTIFIERS: Name and Date of confirmed by patient verbally. FALL SCREENING: Has the patient had 2 falls in the last year or 1 fall with injury or currently using an Ambulatory Assistive Device (Walker, Cane, Wheelchair, Crutches, etc.)? No PATIENT GENDER DATA: Female. status: : No status: NO. PATIENT RELEVANT IMPLANT DATA REVIEWED: Not Applicable PATIENT PRESENTS WITH AN IMPLANTABLE OR ATTACHED ASSOCIATE WEB DEVELOPER: No RADIOLOGY DEPARTMENT: Ultrasound PERIPHERAL IV DATA: Not applicable SIGNED BY: Steph Ramos RDMS RVT February 27, 2024 9:57 AM documented in this encounter [facility] 02-27-2024 Note HNO ID: [id number] Author: STEPH RAMOS RDMS Service: ? Author Type: Rn [facility] Type: Progress Notes Filed: 02/27/2024 09:57 Note Text: Radiology Service Progress Note PATIENT NAME: Eugene Ahmadi DATE OF SERVICE: February 27, 2024 TIME: 9:57 AM PATIENT IDENTITY VERIFICATION COMPLETED USING TWO (2) IDENTIFIERS: Name and Date of confirmed by patient verbally. FALL SCREENING: Has the patient had 2 falls in the last year or 1 fall with injury or currently using an Ambulatory Assistive Device (Walker, Cane, Wheelchair, Crutches, etc.)? No PATIENT GENDER DATA: Female. status: : No status: NO. PATIENT RELEVANT IMPLANT DATA REVIEWED: Not Applicable PATIENT PRESENTS WITH AN IMPLANTABLE OR ATTACHED ASSOCIATE WEB DEVELOPER: No RADIOLOGY DEPARTMENT: Ultrasound PERIPHERAL IV DATA: Not applicable SIGNED BY: Steph Ramos RDMS RVT February 27, 2024 9:57 AM [facility] 02-26-2024 Note HNO ID: [id number] Author: NATALIA KEVIN APRN.CNP Service: ? Author Type: Nurse Practitioner Type: Progress Notes Filed: 02/26/2024 17:55 Note Text: 02/26/2024 Patient presents with: Establish Care SUBJECTIVE: This is a 28 year old that is here today for Above Complaints.. Hx of anxiety and OCD. Taking Effexor and Buspar which she reports work well to control her symptoms. Denies depressive symptoms PHQ9: 3 JOHANN: 11 Reports recently at dermatlogist for hx of psorisis and was found to have enlarged thryoid. Labs compelted and normal. Denies neck fullness or difficulty swallowing Heart rate elevate when running. Has recorder that says when she runs her heart rate is in the 200's Stress test about four years and was normal but she reports her heart rate did get up to 215. She reports she feels fine when running and able to carry a conversation. Admits to palpitations a couple time a month without symptoms, resolve quickly. Admits to syncopal episodes some time ago related to pain, has ot happened for some time. Denies SOB, dyspnea, or chest pain. Past medical, surgical, family, social hx, medications, allergies and health maintenance reviewed and updated PAST MEDICAL HISTORY No date: Endometriosis No date: Generalized anxiety disorder No date: OCD (obsessive compulsive disorder) ALLERGIES Patient has no allergy information on record. MEDICATIONS Current Outpatient Medications Medication Sig venlafaxine ER (EFFEXOR XR) 75 mg 24 hr capsule Take 75 mg by mouth once daily. busPIRone (BUSPAR) 10 mg tablet Take 10 mg by mouth two times a day. No current facility-administered medications for this visit. Medications and allergies reviewed by this provider. SOCIAL HISTORY Social History Tobacco Use Smoking status: Never Smokeless tobacco: Never REVIEW OF SYSTEMS GENERAL: No weight loss, malaise or fevers HEENT: Negative for frequent or significant headaches, No changes in hearing or vision, no nose bleeds or other nasal problems NECK: Negative for neck pain. See HPI RESPIRATORY: Negative for cough, hemoptysis, wheezing, COPD, dyspnea or shortness of breath CARDIOVASCULAR: Negative for chest pain, leg swelling, hypertension, CHF - see HPI GI: No nausea, vomiting, or diarrhea : No history of dysuria, frequency or incontinence SUPERVISOR COVERING AND LINING: Negative for abnormal vaginal bleeding, abnormal vaginal discharge MUSCULOSKELETAL: Negative for joint pain or swelling, back pain or muscle pain SKIN: Negative for lesions, rash, and itching PSYCH: Negative for sleep disturbance, mood disorder and recent psychosocial stressors HEMATOLOGY/LYMPHOLOGY: Negative for prolonged bleeding, bruising easily or swollen nodes ENDOCRINE: Negative for cold or heat intolerance, polyuria, polydipsia and goiter NEURO: No history of headaches, syncope, paralysis, seizures or tremors and fainting spells in the past in response to pain All other reviewed and negative other than HPI. OBJECTIVE: BP 114/80 Pulse 79 Resp 16 Ht 163.1 cm (5' 4.21) Wt 62.9 kg (138 lb 10.7 oz) SpO2 99% BMI 23.64 kg/m? . Vital signs reviewed by this provider. APPEARANCE Well appearing, alert, in no acute distress, well-hydrated, well nourished. EYES conjunctiva and sclera normal. EARS External ears normal, canals clear NECK Supple, no adenopathy; no bruits. Enlarged thyroid HEART RRR with normal S1 and S2, no murmurs, no gallops, no JVD appreciated LUNG clear to auscultation ABDOMEN bowel sounds normoactive, no bruits, soft, non-tender, non-distended, without organomegaly or palpable masses, no tenderness to palpation EXTREMITIES Extremities normal, No deformities, No skin discoloration, and No edema SKIN Skin color, texture, turgor normal, no suspicious rashes or lesions to exposed skin Latest Ref Rng 02/03/2024 Calcium 8.5 - 10.5 mg/dL 10.0 PTH, Intact 14 - 72 pg/mL 60 THYROID PEROXIDASE ANTIBODY <5.6 IU/mL <3.0 TSH 0.358 - 3.740 mIU/L 1.308 Free T4 0.8 - 1.5 ng/dL 1.2 Free T3 2.2 - 4.0 pg/mL 3.2 Depression Screening Never done Anxiety Screening Never done Cervical Cancer Screening Never done Covid-19 Vaccine( - season) due on 02/16/2024 Influenza Vaccine(1) due on 02/16/2024 Hepatitis C Screening due on 02/25/2025 HIV Screening due on 02/25/2025 DTaP,Tdap,Td Vaccine(7 - Td or Tdap) due on 01/10/2030 Hepatitis B Vaccine Completed HPV Vaccine Completed ASSESSMENT/PLAN: 1. Encounter for medical examination to establish care - ICD9: V70.9, ICD10: Z00.00 (primary diagnosis) - Counseled on healthy diet and regular exercise - Follow up for annual exam in one year - COMPLETE BLOOD COUNT AND DIFFERENTIAL - COMPREHENSIVE METABOLIC PANEL 2. Tachycardia - ICD9: 785.0, ICD10: R00.0 - no red flag symptoms - red flag symptoms discussed - normal stress test four years ago, no chest pain - offered ZIO declines at this time - ECG COMPLETE - follow-up as nee (more content not included)... [facility] 02-26-2024 History of Presen t illness Narrative 02/26/2024 Patient presents with: Establish Care SUBJECTIVE: This is a 28 year old that is here today for Above Complaints.. Hx of anxiety and OCD. Taking Effexor and Buspar which she reports work well to control her symptoms. Denies depressive symptoms PHQ9: 3 JOHANN: 11 Reports recently at dermatlogist for hx of psorisis and was found to have enlarged thryoid. Labs compelted and normal. Denies neck fullness or difficulty swallowing Heart rate elevate when running. Has recorder that says when she runs her heart rate is in the 200's Stress test about four years and was normal but she reports her heart rate did get up to 215. She reports she feels fine when running and able to carry a conversation. Admits to palpitations a couple time a month without symptoms, resolve quickly. Admits to syncopal episodes some time ago related to pain, has ot happened for some time. Denies SOB, dyspnea, or chest pain. Past medical, surgical, family, social hx, medications, allergies and health maintenance reviewed and updated PAST MEDICAL HISTORY No date: Endometriosis No date: Generalized anxiety disorder No date: OCD (obsessive compulsive disorder) ALLERGIES Patient has no allergy information on record. MEDICATIONS Current Outpatient Medications Medication Sig venlafaxine ER (EFFEXOR XR) 75 mg 24 hr capsule Take 75 mg by mouth once daily. busPIRone (BUSPAR) 10 mg tablet Take 10 mg by mouth two times a day. No current facility-administered medications for this visit. Medications and allergies reviewed by this provider. SOCIAL HISTORY Social History Tobacco Use Smoking status: Never Smokeless tobacco: Never REVIEW OF SYSTEMS GENERAL: No weight loss, malaise or fevers HEENT: Negative for frequent or significant headaches, No changes in hearing or vision, no nose bleeds or other nasal problems NECK: Negative for neck pain. See HPI RESPIRATORY: Negative for cough, hemoptysis, wheezing, COPD, dyspnea or shortness of breath CARDIOVASCULAR: Negative for chest pain, leg swelling, hypertension, CHF - see HPI GI: No nausea, vomiting, or diarrhea : No history of dysuria, frequency or incontinence SUPERVISOR COVERING AND LINING: Negative for abnormal vaginal bleeding, abnormal vaginal discharge MUSCULOSKELETAL: Negative for joint pain or swelling, back pain or muscle pain SKIN: Negative for lesions, rash, and itching PSYCH: Negative for sleep disturbance, mood disorder and recent psychosocial stressors HEMATOLOGY/LYMPHOLOGY: Negative for prolonged bleeding, bruising easily or swollen nodes ENDOCRINE: Negative for cold or heat intolerance, polyuria, polydipsia and goiter NEURO: No history of headaches, syncope, paralysis, seizures or tremors and fainting spells in the past in response to pain All other reviewed and negative other than HPI. OBJECTIVE: BP 114/80 Pulse 79 Resp 16 Ht 163.1 cm (5' 4.21) Wt 62.9 kg (138 lb 10.7 oz) SpO2 99% BMI 23.64 kg/m . Vital signs reviewed by this provider. APPEARANCE Well appearing, alert, in no acute distress, well-hydrated, well nourished. EYES conjunctiva and sclera normal. EARS External ears normal, canals clear NECK Supple, no adenopathy; no bruits. Enlarged thyroid HEART RRR with normal S1 and S2, no murmurs, no gallops, no JVD appreciated LUNG clear to auscultation ABDOMEN bowel sounds normoactive, no bruits, soft, non-tender, non-distended, without organomegaly or palpable masses, no tenderness to palpation EXTREMITIES Extremities normal, No deformities, No skin discoloration, and No edema SKIN Skin color, texture, turgor normal, no suspicious rashes or lesions to exposed skin Latest Ref Rng 02/03/2024 Calcium 8.5 - 10.5 mg/dL 10.0 PTH, Intact 14 - 72 pg/mL 60 THYROID PEROXIDASE ANTIBODY <5.6 IU/mL <3.0 TSH 0.358 - 3.740 mIU/L 1.308 Free T4 0.8 - 1.5 ng/dL 1.2 Free T3 2.2 - 4.0 pg/mL 3.2 Depression Screening Never done Anxiety Screening Never done Cervical Cancer Screening Never done Covid-19 Vaccine( season) due on 02/16/2024 Influenza Vaccine(1) due on 02/16/2024 Hepatitis C Screening due on 02/25/2025 HIV Screening due on 02/25/2025 DTaP,Tdap,Td Vaccine(7 - Td or Tdap) due on 01/10/2030 Hepatitis B Vaccine Completed HPV Vaccine Completed ASSESSMENT/PLAN: 1. Encounter for medical examination to establish care - ICD9: V70.9, ICD10: Z00.00 (primary diagnosis) - Counseled on healthy diet and regular exercise - Follow up for annual exam in one year - COMPLETE BLOOD COUNT AND DIFFERENTIAL - COMPREHENSIVE METABOLIC PANEL 2. Tachycardia - ICD9: 785.0, ICD10: R00.0 - no red flag symptoms - red flag symptoms discussed - normal stress test four years ago, no chest pain - offered ZIO declines at this time - ECG COMPLETE - follow-up as needed to ER with red flag symptoms 3. Enlarged thyroid - ICD9: 240.9, ICD10: E04.9 - no red flag symptoms or exam findings - red flag symptoms discussed - US THYROID/PARATHYROID - follow-up as needed 4. Screening for depression - ICD9: V79.0, ICD10: Z13.31 - DEPRESSION SCREENING 5. Encounter for screening examination for other mental health and behavioral disorders - ICD9: V79.8, ICD10: Z13.39 - continue current medications - ANXIETY SCREENING 6. JOHANN (generalized anxiety disorder) - ICD9: 300.02, ICD10: F41.1 - patient feels controlled on current medications - VENLAFAXINE ER 75 MG CAPSULE,EXTENDED RELEASE 24 HR - BUSPIRONE 10 MG TABLET - follow-up as needed Natalia Kevin APRN.EARLINE Prescription instructions reviewed with patient as applicable. Patient advised if symptoms do not improve or if symptoms worsen sooner, to contact their primary care physician. Potential red flag symptoms discussed with the patient. Reviewed appropriate action plan to take if red flag symptoms occur. Patient agreeable to treatment plan. documented in this encounter [facility] 02-20-2023 Miscellaneous Notes Images from the original note were not included. Symptomatic Caregiver ASIM Weston Patient Name: Eugene Terry Date of : 1995 Primary Care Physician: No primary care provider on file. Service Date: 02/20/2023 Service Time: 1:13 PM Symptomatic Caregiver COVID Call - confirmed: Yes -Caregiver employee ID: -[id number] -Symptom onset: -02/19/23 Covid Immunization Dates Overdue - COVID-19 VACCINE (1) Overdue - never done No completion, postpone, frequency change, or communication history exists for this topic. Symptoms: -cough, sore throat exposure to pos co-worker Eugene meets criteria for Caregiver COVID19 testing. My chart link emailed to cg. Plan -Caregiver COVID19 test ordered and scheduled; cg advised to bring insurance card to appt - testing will be billed to insurance / cg -Reinforced self-isolation, avoiding public areas and gatherings, pending COVID19 result -Mask while home with family and not isolated alone -Advised no work pending COVID19 result -Advised to seek evaluation by primary care provider, [facility], or ED with worsening or escalating symptoms -Advised to call the COVID Hotline with outstanding questions/comments/concerns Signature: Oxana Ortega RN Patient Name: Eugene Terry Date: 02/20/2023 Time: 1:13 PM Pager/Contact: documented in this encounter [facility] 06-01-2021 History of Presen t illness Narrative PA initiated vis [employer] Breen: [id number]. Awaiting response. documented in this encounter [facility] 05-31-2021 History of Presen t illness Narrative [facility] [address] [facility] [id number] CONSULT VISIT Patient Name: Eugene Valdez : 1995 MR #: [id number] SUBJECTIVE: Eugene Valdez is a 25 y.o. female who presents for Endometriosis and Consult (Pt c/o back pain and pelvic pain during menses. Pt reports painful BM and pain when bladder is full while on menses.) Pt presents to discuss hx of endometriosis. She notes lap performed in 2018 with significant improvement in symptoms at that time. States she was on NuvaRing which worked well for managing her symptoms. States she did have side effects (extreme vaginal dryness) and had NuvaRing removed. States once she had NuvaRing, removed, her pain symptoms increased. She notes she has tried multiple contraceptives prior to that with multiple side effects. States she has been off all hormones for the last 2-3 months and her pain symptoms have increased in severity with continued back pain. She notes she takes Aleve during her cycle time to manage her discomfort. She notes family hx (mom, aunt, grandma) of endometriosis. She states her cycles are regular when not on control. She runs for exercise, which increases her back pain. The patient expresses a desire to retain her uterus if possible in the hope of future . States she would like to try for in the next 2 years. Review of Systems Constitutional: Negative for activity change, appetite change, fatigue and unexpected weight change. Respiratory: Negative for chest tightness and shortness of breath. Cardiovascular: Negative for chest pain, palpitations and leg swelling. Gastrointestinal: Negative for abdominal distention, abdominal pain, constipation, diarrhea, nausea and vomiting. Endocrine: Negative for cold intolerance and heat intolerance. Genitourinary: Positive for dyspareunia, menstrual problem and pelvic pain. Negative for decreased urine volume, difficulty urinating, dysuria, enuresis, flank pain, frequency, genital sores, hematuria, urgency, vaginal bleeding, vaginal discharge and vaginal pain. Skin: Negative for color change and rash. Neurological: Negative for facial asymmetry and speech difficulty. Hematological: Negative for adenopathy. Does not bruise/bleed easily. Psychiatric/Behavioral: Negative for agitation, behavioral problems, confusion, decreased concentration, self-injury, sleep disturbance and suicidal ideas. SUPERVISOR COVERING AND LINING History: Period Cycle (Days): 28 Period Pattern: Regular Menstrual Flow: Heavy (large clots) Menstrual Control: Maxi pad,Tampon Menstrual Control Change Freq (Hours): 1 Dysmenorrhea: (!) Severe Dysmenorrhea Symptoms: Cramping Past Medical History: Diagnosis Date Anxiety Endometriosis Past Surgical History: Procedure Laterality Date LAPAROSCOPY 2018 Endometriosos WISDOM TOOTH EXTRACTION Family History Problem Relation Age of Onset Breast cancer Neg Hx Colon cancer Neg Hx Ovarian cancer Neg Hx Uterine cancer Neg Hx Social History Socioeconomic History Marital status: Tobacco Use Smoking status: Never Smoker Smokeless tobacco: Never Used Vaping Use Vaping Use: Never used Substance and Sexual Activity Alcohol use: Yes Comment: Occasionally Drug use: Never Sexual activity: Yes Partners: Male control/protection: None OBJECTIVE: Vitals: 05/31/21 1137 BP: 129/81 Weight: 64 kg (141 lb) Height: 5' 5 Body mass index is 23.46 kg/m . Physical Examination: Physical Exam Constitutional: Appearance: Normal appearance. She is well-developed. Genitourinary: No vaginal tenderness. Parametrium nodularity present. Uterus is tender. HENT: Head: Normocephalic and atraumatic. Cardiovascular: Rate and Rhythm: Normal rate. Pulmonary: Effort: Pulmonary effort is normal. Abdominal: Palpations: Abdomen is soft. Musculoskeletal: Cervical back: Normal range of motion. Neurological: Mental Status: She is alert and oriented to person, place, and time. Skin: General: Skin is warm and dry. Psychiatric: Mood and Affect: Mood and affect normal. Behavior: Behavior normal. Thought Content: Thought content normal. Judgment: Judgment normal. Vitals and nursing note reviewed. Exam conducted with a electrical accessories ii assembler present. ASSESSMENT/PLAN: Eugene Valdez is a 25 y.o. female who presents for: Problem List Items Addressed This Visit Dyschromia, unspecified Pelvic exam performed. 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 Discussed possible etiology of endometriosis given family h/o and symptoms. Pt extensively counseled on symptomology and treatment options for endometriosis. Discussed medical vs surgical options. Pt advised on use of control pills, Orilissa and Lupron. Advised on side effects and correction use. Pt also advised on robotic assisted resection of endometriosis and hysterectomy. Advised on robotic assisted laparoscopic hysterectomy. IUD options discussed. Discussed options including medical management with Orilissa. Discussed Orlissa (elagolix), new drug approved for treatment of pain due to endomtriosis . Advised pt on details of mechanism of action being an Estrogen antagonist. Explained that it reduces estrogen levels to manage the endometriosis pain. Benefits of pelvic floor therapy discussed. Ambulatory referral given and Pt advised to trial pelvic floor therapy sessions for further management of symptoms. Discussed premedicating with Aleve prior to the onset of her cycles to better manage pain symptoms. Celebrex medication options discussed. Trial Rx written for continued pain management. Discussed the importance of healthy diet and aim for a minimum of 4 hours of weekly exercise to help better manage her symptoms. Pt counseled on clean eating and reduction of food additives and preservatives. Mindfulness and meditation discussed. Water soluble fiber supplementation discussed. Discussed Metamucil and Benefiber options. Pt counseled these can act as stool bulking agents to better manage any bowel symptoms. Use as directed, in the morning followed by an extra glass of water. Pt counseled on heavy bleeding. Lysteda medication options discussed. Pt counseled with mom's previous hx of stroke, will begin with Celebrex to see if this helps manage heavy bleeding episodes. Relevant Medications celecoxib (CELEBREX) 200 MG capsule Other Visit Diagnoses Dysmenorrhea Relevant Medications celecoxib (CELEBREX) 200 MG capsule Return in about 3 months (around 08/29/2021) for Follow up, Followup after pelvic floor therapy, Medication trial followup (Celebrex). Aishwarya Byrne MA, acted as scribe on behalf of Dr. Juan Valentino and accurately documented clinical information at the direction of the physician contemporaneously, while she performed the patient's clinical service. 05/31/21 12:17 PM documented in this encounter [facility] 05-31-2021 Miscellaneous Notes Associated Problem(s): Dyschromia, unspecified Pelvic exam performed. 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 Discussed possible etiology of endometriosis given family h/o and symptoms. Pt extensively counseled on symptomology and treatment options for endometriosis. Discussed medical vs surgical options. Pt advised on use of control pills, Orilissa and Lupron. Advised on side effects and correction use. Pt also advised on robotic assisted resection of endometriosis and hysterectomy. Advised on robotic assisted laparoscopic hysterectomy. IUD options discussed. Discussed options including medical management with Orilissa. Discussed Orlissa (elagolix), new drug approved for treatment of pain due to endomtriosis . Advised pt on details of mechanism of action being an Estrogen antagonist. Explained that it reduces estrogen levels to manage the endometriosis pain. Benefits of pelvic floor therapy discussed. Ambulatory referral given and Pt advised to trial pelvic floor therapy sessions for further management of symptoms. Discussed premedicating with Aleve prior to the onset of her cycles to better manage pain symptoms. Celebrex medication options discussed. Trial Rx written for continued pain management. Discussed the importance of healthy diet and aim for a minimum of 4 hours of weekly exercise to help better manage her symptoms. Pt counseled on clean eating and reduction of food additives and preservatives. Mindfulness and meditation discussed. Water soluble fiber supplementation discussed. Discussed Metamucil and Benefiber options. Pt counseled these can act as stool bulking agents to better manage any bowel symptoms. Use as directed, in the morning followed by an extra glass of water. Pt counseled on heavy bleeding. Lysteda medication options discussed. Pt counseled with mom's previous hx of stroke, will begin with Celebrex to see if this helps manage heavy bleeding episodes. documented in this encounter [facility] Evaluation note Diagnosis Endometriosis- Primary Endometriosis, site unspecified documented in this encounter [facility] note* Diagnosis Endometriosis Endometriosis, site unspecified Dysmenorrhea documented in this encounter [facility] noteNo assessment information availableWElyria Memorial [facility] Work Phone: Evaluation note* Diagnosis Suspected 2019 novel coronavirus infection- Primary [facility] Diagnosis Encounter for medical examination to establish care- Primary Tachycardia Tachycardia, unspecified Enlarged thyroid Goiter, unspecified Screening for depression Encounter for screening examination for other mental health and behavioral disorders JOHANN (generalized anxiety disorder) Generalized anxiety disorder [facility] Diagnosis Enlarged thyroid Goiter, unspecified [facility] Diagnosis JOHANN (generalized anxiety disorder) Generalized anxiety disorder [facility] Diagnosis JOHANN (generalized anxiety disorder) Generalized anxiety disorder [facility] Diagnosis Need for vaccination- Primary Need for prophylactic vaccination and inoculation against unspecified single disease documented in this encounter [facility] for referral (narrative)* Diagnostic Procedure Only (Routine) - Authorized Specialty Diagnoses / Procedures [facility]erred To Contact [facility] Diagnoses Enlarged thyroid Procedures US THYROID/PARATHYROID US SOFT TISSUE HEAD & NECK REAL TIME IMGE DOC ArthurlogNatalia parsons APRN.SCREEN PRINTING MACHINE LOADER UNLOADER [address] [place] [address] [place] [address] Referral ID Status Reason Start Date Expiration Date Visits Requested Visits Authorized [id number] Authorized Auto-Generat ed Referral 02/26/2024 03/27/2025 1 1 * Outpatient Procedure (Routine) - Authorized Specialty Diagnoses / Procedures Referred By Contac t Referred To Contact [facility] Diagnoses Tachycardia Procedures ECG COMPLETE ECG ROUTINE ECG W/LEAST 12 LDS W/I&R PodlogNatalia parsons APRN.SCREEN PRINTING MACHINE LOADER UNLOADER [address] [place] [address] [facility] [place] [address] [place] [address] Referral ID Status Reason Start Date Expiration Date Visits Requested Visits Authorized [id number] Authorized Auto-Generat ed Referral 02/26/2024 02/25/2025 1 1 [facility] for referral (narrative)* Diagnostic Procedure Only (Routine) - Closed Specialty Diagnoses / Procedures Referred By Contac t Referred To Contact US IMAGING Diagnoses Enlarged thyroid Procedures US THYROID/PARATHYROID US SOFT TISSUE HEAD & NECK REAL TIME IMGE [facility] ArthurlogNatalia parsons APRN.SCREEN PRINTING MACHINE LOADER UNLOADER [address] [place] [address] [place] [address] Referral ID Status Reason Start Date Expiration Date V isits Requested Visits Authorized [id number] Closed Auto-Generate d Referral 02/26/2024 03/27/2025 1 1 [facility] Reason for Referral Specialty Diagnoses / Procedures Referred By Contac t Referred To Contact Gynecology Diagnoses Endometriosis Angy Mandel MD [address] [place] [address] Juan Valentino MD [address] [facility] [place] [address] Referral ID Status Reason Start Date Expiration Date Visits Requested Visits Authorized [id number] Authorized Specialty Services Required/Pat ient's Best Interest 03/08/2021 03/08/2022 1 1 Advance Directives No Advanced Directives Records FoundDocuments on File Type Date 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 Advance Directives and Livin g Will 03/06/2021 12:00 AM Documents on File Type Date Recorded 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 Advance Directives and Living Will Advance Directive Response Recorded Date/ Time Living Will No April 30 2 018 3:32pm Power of Holter Technician No April 30, 2018 3:32pm Date Activated Date Inactivated Comments 11/09/2024 3:24 AM 11/09/2024 2:38 PM Question Answer Comments Full Code Order Discussed With: Patient Summary Purpose Family History No Family History Records FoundNo Family History Records FoundNo Family History Records FoundNo Family History Records Found Health Concerns Infection Onset Date Last Indicated Resolved Time COVID-19 Rule-Out 02/20/2023 02/20/2023 02/21/2023 12:25 AM EDT Additional Source Comments Care Teams (unrecognized sec tion and content) Early Childhood Teacher Relationship Specialty Start Date End Date Hailey Gimenez MD [address] [facility] [address] [place] [address] PCP - General Family Medicine 03/06/21 Early Childhood Teacher Relationship Specialty Start Date End Date Hailey Gimenez MD [address] [facility] [address] [place] [address] PCP - General Family Medicine 03/06/21 Early Childhood Teacher Relationship Specialty Start Date End Date Hailey Gimenez MD [address] [facility] [address] [place], [place] [id number] PCP - General Family Medicine 03/06/21 Team Status: Active Member Role Status Dates Dr. Hailey Gimenez MD Family Provider Active Dr. Hailey Gimenez MD Primary Care Provider Active Team Status: Inactive Member Role Status Dates Dr. Hailey Gimenez MD Primary Care Provider, [facility] Provider Active Early Childhood Teacher Relationship Specialty Start Date End Date Caridad Wheeler MD [address] [place] [address] PCP - General Family Medicine 02/27/24 Early Childhood Teacher Relationship Specialty Start Date End Date Caridad Wheeler MD [address] [place] [address] PCP - General Family Medicine 02/27/24 Early Childhood Teacher Relationship Specialty Start Date End Date Caridad Wheeler MD [address] [place] [address] PCP - General Family Medicine 02/27/24 Podlogar, Natalia, NETWORK PRICING CONSULTANT.SCREEN PRINTING MACHINE LOADER UNLOADER [address] [place] [address] Oil [employer] Pipe Tester Family Medicine 05/23/24 Tamanna Alcala, NETWORK PRICING CONSULTANT.SCREEN PRINTING MACHINE LOADER UNLOADER [address] [place], [place] [address] Oil Gas And Pipe Tester Family Medicine 09/07/24 Early Childhood Teacher Relationship Specialty Start Date End Date Caridad Wheeler MD [address] [place] [address] PCP - General Family Medicine 02/27/24 Podlogar, Natalia, NETWORK PRICING CONSULTANT.SCREEN PRINTING MACHINE LOADER UNLOADER [address] [place] [address] [facility] 05/23/24 Tamanna Alcala, RERE.SCREEN PRINTING MACHINE LOADER UNLOADER [address] [place], [place] [id number] [facility] 09/07/24 Early Childhood Teacher Relationship Specialty Start Date End Date Caridad Wheeler MD [address] [place], [place] [id number] PCP - General Family Medicine 02/27/24 Podlogar, RERE Fisher.SCREEN PRINTING MACHINE LOADER UNLOADER [address] [place], [place] [id number] [facility] 05/23/24 Tamanna Alcala, RERE.SCREEN PRINTING MACHINE LOADER UNLOADER [address] [place], [place] [id number] [facility] 09/07/24 Early Childhood Teacher Relationship Specialty Start Date End Date Caridad Wheeler MD [address] [place], [place] [id number] PCP - General Family Medicine 02/27/24 Podlogar, Natalia, NETWORK PRICING CONSULTANT.SCREEN PRINTING MACHINE LOADER UNLOADER [address] [place], [place] [id number] [facility] 05/23/24 Reason for Visit (unrecogniz ed section and content) Reason Onset Date Comments Prior Auth 06/01/2021 Celecoxib Reason Comments Endometriosis Consult Pt c/o back pain and pelvic pain during menses. Pt reports painful BM and pain when bladder is full while on menses. Specialty Diagnoses / Procedures Referred By Contac t Referred To Contact Gynecology Diagnoses Endometriosis Angy Mandel MD [address] [address] Juan Valentino MD [address] [place] [address] Referral ID Status Reason Start Date Expiration Date V isits Requested Visits Authorized [id number] Closed Specialty Services Required/Edda ent's Best Interest 03/08/2021 03/08/2022 1 1 Reason Onset Date Comments [facility] COVID Outreach 02/20/2023 Reason Onset Date Comments [facility] COVID Outreach 02/21/2023 Reason Comments Establish Care Reason Comments Results Reason Comments Radiology US Specialty Diagnoses / Procedures Referred By Contac t Referred To Contact US IMAGING Diagnoses Enlarged thyroid Procedures US THYROID/PARATHYROID US SOFT TISSUE HEAD & NECK REAL TIME IMGE Natalia Schroeder APRN.SCREEN PRINTING MACHINE LOADER UNLOADER [address] [place] [address] [place] [address] Referral ID Status Reason Start Date Expiration Date V isits Requested Visits Authorized [id number] Closed Auto-Generate d Referral 02/26/2024 03/27/2025 1 1 Reason Onset Date Comments Refill Request 09/11/2024 Reason Onset Date Comments Encounter not needed 09/15/2024 Reason Comments Faxed Documents Reason Comments Follow Up Reason Comments Breast Feeding Follow Up Phone Call INFORMATION SOURCE (unrecogn ized section and content) DATE CREATED AUTHOR 08/06/2021 [facility] DATE CREATED AUTHOR AUTHOR'S ORGANIZ ATION 01/25/2023 [facility] DATE CREATED AUTHOR AUTHOR'S ORGANIZ ATION 11/02/2024 [facility] DATE CREATED AUTHOR AUTHOR'S ORGANIZ ATION 11/15/2024 [facility] nter Goals (unrecognized section and content) Goals may be documented in a n alternate sectionGoals may be documented in an alternate section Source Comments (unrecognize d section and content) In the event this informatio n is protected by the Federal Confidentiality of Alcohol and Drug Abuse Patient Records regulations: The Federal rules restrict any use of the information to criminally investigate or prosecute any alcohol or drug abuse patient.[facility] the event this information is protected by the Federal Confidentiality of Alcohol and Drug Abuse Patient Records regulations: The Federal rules restrict any use of the information to criminally investigate or prosecute any alcohol or drug abuse patient.[facility] Center[facility] the event this information is protected by the Federal Confidentiality of Alcohol and Drug Abuse Patient Records regulations: The Federal rules restrict any use of the information to criminally investigate or prosecute any alcohol or drug abuse patient.[facility] Center[facility] the event this information is protected by the Federal Confidentiality of Alcohol and Drug Abuse Patient Records regulations: The Federal rules restrict any use of the information to criminally investigate or prosecute any alcohol or drug abuse patient.[facility] Center[facility] the event this information is protected by the Federal Confidentiality of Alcohol and Drug Abuse Patient Records regulations: The Federal rules restrict any use of the information to criminally investigate or prosecute any alcohol or drug abuse patient.[facility] Center[facility] the event this information is protected by the Federal Confidentiality of Alcohol and Drug Abuse Patient Records regulations: The Federal rules restrict any use of the information to criminally investigate or prosecute any alcohol or drug abuse patient.[facility] Center[facility] the event this information is protected by the Federal Confidentiality of Alcohol and Drug Abuse Patient Records regulations: The Federal rules restrict any use of the information to criminally investigate or prosecute any alcohol or drug abuse patient.[facility] Center[facility] the event this information is protected by the Federal Confidentiality of Alcohol and Drug Abuse Patient Records regulations: The Federal rules restrict any use of the information to criminally investigate or prosecute any alcohol or drug abuse patient.[facility] Center[facility] the event this information is protected by the Federal Confidentiality of Alcohol and Drug Abuse Patient Records regulations: The Federal rules restrict any use of the information to criminally investigate or prosecute any alcohol or drug abuse patient.[facility] Center[facility] the event this information is protected by the Federal Confidentiality of Alcohol and Drug Abuse Patient Records regulations: The Federal rules restrict any use of the information to criminally investigate or prosecute any alcohol or drug abuse patient.[facility] [facility] the event this information is protected by the Federal Confidentiality of Alcohol and Drug Abuse Patient Records regulations: The Federal rules restrict any use of the information to criminally investigate or prosecute any alcohol or drug abuse patient.[facility] FOR RECORDS PERTAINING TO PATIENTS WHO ARE OR HAVE BEEN ENROLLED IN A CHEMICAL DEPENDENCY/SUBSTANCEABUSE PROGRAM, SOME INFORMATION MAY BE OMITTED. This clinical summary was aggregated from multiple sources. Caution should be exercised in using it in the provision of clinical care. This summary normalizes information from multiple sources, and as a consequence, information in this document may materially change the coding, format and clinical context of patient data. In addition, data may be omitted in some cases. CLINICAL DECISIONS SHOULD BE BASED ON THE PRIMARY CLINICAL RECORDS. [facility] [employer] [facility]. provides no warranty or guarantee of the accuracy or completeness of information in this document.
--- NOTE | 2024-11-29 19:20 | RAD_ITS ---
PROCEDURE: CHEST PA AND LATERAL 11/29/2024 REASON FOR EXAM: FEVER TECHNIQUE: CHEST PA AND LATERAL COMPARISON: None FINDINGS: Cardiomediastinal silhouette is within normal limits. Lungs are clear. No sizable pneumothorax. RAD/Chest PA and Lateral IMPRESSION: No acute airspace abnormality. Reading Location: [facility]
[2024-11-29] MEDS: Ceftriaxone 1 GM/50 ML BAG IV (19:27)
== END 2024-11-29 21:31 | disposition home or self-care (01) ==
PROVIDERS: Emergency Provider Emergency Medicine; PCP Nurse Practitioner Primary Care; Visit Provider Emergency Medicine
DX: O86.20 Urinary tract infection following delivery, unspecified (principal); O99.893 Other specified diseases and conditions complicating puerperium; R55 Syncope and collapse; R11.0 Nausea; Z11.52 Encounter for screening for COVID-19; Z79.899 Other long term (current) drug therapy
CPT/HCPCS: 71046; 80053; 81001; 82962; 85025; 87086; 87631; 93005; 96361; 96365; 99285

== ENCOUNTER → 2025-03-29 | Outpatient (CLI) | payer OTHER, SELFPAY ==
[2025-03-29 15:07] LABS: Hematocrit 40.3 % (37-47); Hemoglobin 13.4 g/dL (12.0-15.0); Immature Granulocytes Count 0.020 X10^3/uL (0.0-0.0); Mean Corp Hgb Conc 33.3 g/dL (32-36); Mean Corpuscular Volume 85.6 fL (81-99); Mean Platelet Vol. 9.2 fl (6.2-12.0); NRBC Flagged by Analyzer 0 % (0-5); Platelet Count 242 K/mm3 (150-450); RBC Distribution Width CV 13.2 % (11.6-14.6); RBC Distribution Width SD 40.9 fl (35.1-43.9); Red Blood Count 4.71 M/mm3 (4.2-5.4); White Blood Count 7.6 K/mm3 (4.4-11.0)
[2025-03-29 15:55] LABS: AST(SGOT) 20 U/L (<=31); Alanine Aminotransfer ALT/SGPT 15 U/L (<=34); Albumin, Serum 4.5 g/dL (3.5-5.0); Alkaline Phosphatase 101 U/L (35-104); Anion Gap 10 (5-15); BUN 12 mg/dL (4-19); BUN/Creat Ratio 16.9 RATIO (10-20); Calcium,Total 9.2 mg/dL (7.6-11.0); Carbon Dioxide 24.2 mmol/L (21.0-32.0); Chloride 106 mmol/L (98-108); Ferritin 126 ng/mL (22-378); Globulin 2.0 g/dL (2.2-4.2); Glucose 92 mg/dL (70-99); Iron 106 ug/dL (50-170); Iron Binding Capacity,Total 259 ug/dL (250-450); Iron Binding Capacity,Unsat 153 ug/dL (228-428); Potassium 4.0 mmol/L (3.3-5.1); T3 Total - Triiodothyronine 0.84 ng/mL (0.80-2.00)
== END | disposition home or self-care (01) ==
PROVIDERS: PCP Nurse Practitioner Primary Care; Referring Provider Nurse Practitioner Family; Visit Provider Nurse Practitioner Family
DX: E04.9 Nontoxic goiter, unspecified (principal); Z79.899 Other long term (current) drug therapy
CPT/HCPCS: 36415; 80053; 82728; 83540; 83550; 84439; 84443; 84480; 85025